=== PATIENT | female | born 1960 | race African-American/Black ===

== ENCOUNTER 2020-02-28 15:56 | Inpatient (IN) | payer MEDICARE, MEDICAID ==
[~2020-02-28] VITALS: Ht 175.3 cm; Wt 96.7 kg
--- NOTE | ~2020-02-28 | OP ---
PATIENT NAME: STEFANY RUBY I MEDICAL RECORD: [id number] :60 LOCATION:D.[id number] ADMISSION DATE:02/28/20 SURGEON: ANTIONE CROOKS MD DATE OF OPERATION: 03/02/2020 PREOPERATIVE DIAGNOSIS: Tense hematoma of the left groin. POSTOPERATIVE DIAGNOSIS: Tense hematoma of the left groin with ongoing arterial hemorrhage from a small arterial end that did not involve the common femoral artery, superficial femoral artery, or profunda femoris artery. It did not involve the patch. 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 PROCEDURE: 1. Evacuation of tense groin hematoma. 2. Hemorrhage control. SURGEON: Antione Crooks MD CYBER CRIME INVESTIGATOR: None. BLOOD LOSS: About 50 cc of ongoing blood loss. DRAINS: Times one 19-Tanzanian round Damian drain. OPERATIVE COURSE: The patient was conveyed to the operating room emergently on 03/02/2020. General anesthesia was induced by anesthesia staff. The abdomen, left groin and left thigh were sterilely prepped and draped. I entered the left groin through the incision. A large hematoma was identified. This was evacuated manually. There was approximately a liter of blood in the hematoma. I examined the common femoral artery and profunda femoris arteries and there were biphasic flows in both. I irrigated with normal saline and then hydrogen peroxide. There was acute hemorrhage taking place. This hemorrhage from what appeared to be a crossing artery was controlled with cautery and then a [id number] ligature. There was no further bleeding. A 19-Tanzanian round Daiman-type closed suction drainage system was then placed and brought out through a stab incision. It was sutured to skin with a nylon. The subdermis was approximated with interrupted 3-0 Vicryls. The skin was approximated with metallic clips and then a sterile dressing. The patient was then transferred back to her room and recovered there. TRANSINT:[id number] Voice Confirmation ID: [id number] DOCUMENT ID: [id number] OPERATIVE REPORT [id number] STEFANY RUBY I ANTIONE CROOKS MD CC: [id number] DICTATION DATE: 04/03/20 1333 SUSTAINABILITY SPECIALIST: 04/03/20 2247 ADM IN [place] [id number] [place] [address]
--- NOTE | ~2020-02-28 | HEMODYNAMI ---
PATIENT:STEFANY RUBY I MEDICAL RECORD: [id number] : 60 LOCATION:[facility] D.2309 ADMISSION DATE: 02/28/20 Generatedon:04/10/202013:31 Patient name: STEFANY RUBY Patient #: [id number] SSN: [id number] : 1960 Date of study: 04/10/2020 Page: Of Hemodynamic Procedure Report Patient Data Patient Demographics Procedure consent was obtained First Name: STEFANY Gender: Female Last Name: FLORI : 1960 Middle Initial: I Age: 60 year(s) Patient #: [id number] Race: Black SSN: [id number] Additional ID: [id number] Contact details [address]: [address] [place] [address] State: [place] City: [place] Zip code: [address] Past Medical History Allergies Allergen Reaction Date Comments Reported Other allergy 04/10/2020 see chart Admission Admission Data Admission Date: 02/28/2020 Admission Time: 15:56 Arrival Date: 04/10/2020 Arrival Time: 0:00 Admit Source: Other Insurance Payor: Medicare Room #: D.2309 [facility] #: [id number] Height (in.): 69 BSA: 2.12 (m2) Height (cm.): 175.26 BMI: 31.48 (kg/m2) Weight (lbs.): 213.14 Weight (kg.): 96.68 Lab Results Lab Result Date: 04/10/2020 Lab Result Time: 0:00 Biochemistry Name Units Result Min Max BUN mg/dl 22 --(----)-* 7 18 Creatinine mg/dl 1.1 --(--*-)-- 0.6 1.3 eGFR ml/min 64.40978 *-(----)-- 90 120 AM CBC Name Units Result Min Max Hematocrit % 33 *-(----)-- 42 54 Hemoglobin g/dl 10.5 *-(----)-- 13.5 17.5 Procedure Procedure Types Cath Procedure Diagnostic Procedure [facility] w/Coronaries Sedation Charges Moderate Sedation up to 15 minutes Procedure Description Procedure Date Procedure Date: 04/10/2020 Procedure Start Time: 13:10 Procedure End Time: 13:29 Procedure Staff Name Function Yeison Mckoy MD Performing Physician Margareth Quintana RT Monitor Phuong Dior RT Scrub Kurtis Venegas RN Nurse Alyssa Braun RN It Analyst Procedure Data Cath Procedure Fluoroscopy Diagnostic fluoroscopy Total fluoroscopy Time: 2.6 time: 2.6 min min Diagnostic fluoroscopy Total fluoroscopy dose: 941 dose: 941 mGy mGy Contrast Material Contrast Material Type Amount (ml) Isovue 370 69 Entry Location Entry Primary Successful Side Size Upsize Upsize Entry Closure Succes sful Closure Location (Fr) 1 (Fr) 2 (Fr) Remarks Device Remarks Femoral Right 5 Fr Exoseal artery Estimated blood loss: 5 ml Diagnostic catheters Device Type Used For End Catheter Placement MULTIPACK JL 4.0 5Fr Procedure catheter MULTIPACK 3DRC 5Fr Procedure catheter MULTIPACK Pigtail 5 Fr Procedure catheter Procedure Complications No complications Procedure Medications Medication Administration Route Dosage Oxygen NC 8 l/min Lidocaine 2% added to field 20 Heparin Flush Bag added to field 2 bags (1000units/500ml NS) 0.9% NaCl I.V. 100 ml/hr Versed I.V. 1 mg Fentanyl I.V. 50 mcg Versed I.V. 1 mg Fentanyl I.V. 50 mcg Hemodynamics Rest BSA: 2.12 (m2) HGB: 10.5 (g/dl) O2 Consumption: Estimated: 239.76 (ml/min) O2 Co nsumption indexed: Estimated:113.09 (ml/min/m) Heart Rate: 118 (bpm) Pressure Samples Time Site Value (mmHg) Purpose Heart Use Rate(bpm) 13:21 LV 146/22,29 Snapshot 110 Gradients Valve Time Site Site Mean SEP/DFP Peak To Heart Use 1 2 (mmHg) (sec/min) Peak Rate (mmHg) (bpm) Aortic 13:22 LV AO 120 Snapshots Pre Cath Intra NCS Post Cath Vital Signs Time Heart Resp SPO2 etCO2 NIBP (mmHg) Rhythm Pain Sedation Rate (ipm) (%) (mmHg) Status Level (bpm) 12:57:53 120 33 90 0 158/102(130) NSR 0 (11) 10(A) , No pain 13:02:25 117 35 90 0 152/99(122) NSR 0 (11) 10(A) , No pain 13:06:53 118 35 89 0 158/99(122) NSR 0 (11) 10(A) , No pain 13:11:24 119 38 88 0 160/101(124) NSR 0 (11) 10(A) , No pain 13:15:56 121 20 86 0 155/96(128) NSR 0 (11) 10(A) , No pain 13:21:53 119 36 87 0 153/91(112) NSR 0 (11) 10(A) , No pain 13:26:39 125 25 89 0 No Cuff NSR 0 (11) 10(A) , No pain Medications Time Medication Route Dose Verified Delivered Reason Notes Effectiveness by by 12:56:23 Oxygen NC 8 Yeison Shah for low 02 transported l/min [facility] Braun sats from ICU on RN this amount. 12:57:12 Lidocaine 2% added 20ml Yeison Latham for local to vial [facility] anesthetic field MD ORTEGA 12:57:23 Heparin Flush added 2 Yeison Yeison used for Bag to bags [facility] procedure (1000units/500ml field MD ORTEGA NS) 12:57:30 0.9% NaCl I.V. 100 Yeison Yeison Per ml/hr [facility] physician MD [place]TE[place] 13:04:25 Versed I.V. 1 mg Yeison Hull for [facility] John[facility] Venegas RN sedation 13:04:33 Fentanyl I.V. 50 Yeison Floodie for mcg [facility] Venegas RN sedation 13:11:00 Versed I.V. 1 mg Yeison [address] for [facility] John[facility] Venegas RN sedation 13:11:04 Fentanyl I.V. 50 Yeison Floodie for mcg Leelee Rubi RN sedation Procedure Log Time Note 12:25:02 Alyssa Braun RN sent for patient. Start room use. 12:40:04 Informed consent obtained and on chart 12:40:23 Diagnostic Cath Status : Urgent 12:40:53 Admit Source: Other 12:40:56 ACC Patient presents with Stable Angina CCS Anginal Class 2--Slight limitation of ordinary activity. 12:40:59 Procedure Status Urgent Heart Cath (IP). 12:41:04 Time tracking: Regular hours (M-F 7:00 - 5:00) 12:41:08 Plan of Care:Hemodynamics will remain stable., Cardiac rhythm will remain stable., Comfort level will be maintained., Respiratory function will remain adequate., Patient/ family verbilizes understanding of procedure., Procedure tolerated without complication., Recovers from procedure without complications.. 12:41:49 Patient received from ICU to CCL 1 Alert and oriented. Tansferred to table in Supine position. 12:41:56 Warm blankets applied, and kate hugger turned on for patient comfort. 12:41:56 Correct patient and procedure confirmed by team. 12:41:57 ECG and BP/O2 sat monitors applied to patient. 12:42:12 H&P Date Dictated: 04/10/2020 Within 30 days and on chart.. 12:42:13 Pre-procedure instructions explained to patient. 12:42:13 Pre-op teaching completed and patient verbalized understanding. 12:42:22 Family unavailable. 12:42:23 Patient NPO since Midnight. 12:42:36 Patient allergic to Other allergysee chart 12:42:47 Arrival Date: 04/10/2020 12:00:00 AM 12:42:53 Patient Height : 69 inches 12:42:59 Patient Weight : 213.14 lbs 12:43:05 Insurance Payor : Medicare 12:43:53 Lab Result : BUN 22 mg/dl 12:43:53 Lab Result : Hematocrit 33 % 12:43:53 Lab Result : eGFR AM 64.51383 ml/min 12:43:53 Lab Result : Creatinine 1.1 mg/dl 12:43:53 Lab Result : Hemoglobin 10.5 g/dl 12:48:06 Lab results completed and on chart. 12:48:09 Stress Test: no; N/A ? 12:48:13 Risk of Mortality: 0.2 12:48:16 Risk of blood transfusion: 1.3 12:48:18 Risk of ALVINA: 3.1 12:48:20 Alarms reviewed by R. N. 12:48:20 Sharps counted by scrub and verified by R.N. 12:48:23 Right groin area was prepped with chlora-prep and draped in sterile fashion 12:48:29 Patient pain scale 0/10 ?. 12:48:38 IV patent on arrival in left antecubital with 0.9% NaCl at KVO. 12:56:22 Vital chart was started 12:56:23 Oxygen 8 l/min NC was administered by Alyssa Braun RN; for low 02 sats; transported from ICU on this amount. Verbal order read back and verified. 12:57:12 Lidocaine 2% 20ml vial added to field was administered by Yeison Mckoy MD; for local anesthetic; Verbal order read back and verified. 12:57:23 Heparin Flush Bag (1000units/500ml NS) 2 bags added to field was administered by Yeison Mckoy MD; used for procedure; Verbal order read back and verified. 12:57:30 0.9% NaCl 100 ml/hr I.V. was administered by Yeison Mckoy MD; Per physician; Verbal order read back and verified. 13:03:01 Baseline sample Acquired. 13:03:03 Full Disclosure recording started 13:03:07 Rhythm: sinus tachycardia 13:03:22 Is the patient allergic to Iodine/contrast media? No. 13:03:24 Was the patient premedicated? No 13:03:25 Is patient on blood thinner?No 13:03:28 Patient diabetic? Yes. 13:03:30 If diabetic: On Metformin? No 13:03:31 Patient not . Patient is over age 55. 13:03:32 ----Pre-sedation anethsthesia assessment.---- 13:03:38 Previous problem with sedation/anesthesia? No ? 13:03:39 Snore? Yes 13:03:41 Sleep apnea? Unknown 13:03:43 Deviated septum? No 13:03:45 Opens mouth fully? Yes 13:03:47 Sticks out tongue? Yes 13:03:52 Airway obstruction? No ? 13:04:00 Dentures? No ? 13:04:17 --------ALL STOP TIME OUT------ 13:04:17 Final Timeout: patient, procedure, and site verified with staff and physician. All members of the team are in agreement. 13:04:23 Right groin site verified by team. 13:04:25 Versed 1 mg I.V. was administered by Kurtis Venegas RN; for sedation; Verbal order read back and verified. 13:04:27 Fire Safety Assessment: A--An alcohol-based skin anteseptic being used preoperatively., C--Open oxygen or nitrous oxide is being used., D--An ESU, laser, or fiber-optic light is being used. 13:04:33 Fentanyl 50 mcg I.V. was administered by Kurtis Venegas RN; for sedation; Verbal order read back and verified. 13:04:38 Physical assessment completed. ASA score P 4 - A patient with severe systemic disease that is a constant threat to life as per Yeison Mckoy MD. 13:04:54 2) 60-89 Mildly reduced kidney function, and other findings (as for stage 1) point to kidney disease. 13:04:59 Maximum allowable contrast dose (3.7 X eGFR X 0.75)180 ml. 13:05:03 Sedation plan: IV Moderate Sedation Medication:Versed, Fentanyl 13:10:01 Procedure started. 13:10:13 Local anesthetic to right femoral artery with Lidocaine 2% by Yeison Mckoy MD.INITIAL ACCESS ONLY 13:10:30 Use device set Femoral Dx 13:10:31 ACIST Syringe (26822) opened to sterile field. 13:10:31 Bag Decanter (2002S) opened to sterile field. 13:10:32 Medline Cath Pack ([id number]) opened to sterile field. 13:10:33 ACIST Hand Control (83196) opened to sterile field. 13:10:34 ACIST Manifold (73566) opened to sterile field. 13:10:34 DIAGNOSTIC Multipack 5Fr catheter set (UV7278) opened to sterile field. 13:10:39 SHEATH 5FR [place] (JRV679) opened to sterile field. 13:10:40 EMERALD Guide Wire (126-461) opened to sterile field. 13:11:00 Versed 1 mg I.V. was administered by Kurtis Venegas RN; for sedation; Verbal order read back and verified. 13:11:04 Fentanyl 50 mcg I.V. was administered by Kurtis Venegas RN; for sedation; Verbal order read back and verified. 13:11:50 A 5 Fr sheath was inserted into the Right Femoral artery 13:11:56 A MULTIPACK JL 4.0 5Fr catheter was advanced over the wire and used for Procedure. 13:13:20 LCA angiography performed. 13:13:25 Injector settings: Ml/sec: 3, Volume: 6, 13:15:20 UNABLE TO ENGAGE LCA FULLY CHANGING GUIDE CATHETER. 13:15:25 Catheter exchanged over wire. 13:16:22 GUIDE 6FR JL 5.0 catheter ([id number]) opened to sterile field. 13:17:57 LCA angiography performed. 13:18:00 Injector settings: Ml/sec: 3, Volume: 6, 13:18:10 Catheter exchanged over wire. 13:18:50 A MULTIPACK 3DRC 5Fr catheter was advanced over the wire and used for Procedure. 13:19:43 RCA angiography performed. 13:19:46 Injector settings: Ml/sec: 3, Volume: 6, 13:20:17 Catheter exchanged over wire. 13:21:03 A MULTIPACK Pigtail 5 Fr catheter was advanced over the wire and used for Procedure. 13:21:42 LV gram done using DUGGAN 13:21:44 Injector settings: Ml/sec: 5, Volume: 15, 13:21:58 LV hemodynamics recorded. 13:22:12 EF : 20 % 13:22:20 Catheter removed. 13:22:24 EXOSEAL 5Fr (EX500) opened to sterile field. 13:22:35 Sheath removed intact; hemostasis achieved with Exoseal to the Right Femoral artery. 13:23:05 Fluoroscopy time 02.60 minutes. 13:23:09 Fluoroscopy dose: 941 mGy 13:23:09 Flurop Dose total: 941 13:23:19 Dose Area Product 10318 mGy/cm. 13:23:27 Procedure ended.(Physican Out) 13:23:58 Contrast amount:Isovue 370 69ml. 13:24:02 Maximum allowable dose exceeded? No. 13:24:04 Sharps counted by scrub and verified by R.N. 13:24:13 Post-op/insertion site Right Femoral artery dressed using a 4 x 4 and Tegaderm. 13:24:18 Post right femoral artery:stable, soft, clean and dry 13:24:19 Post Procedure Pulses reassessed and unchanged 13:24:22 Post procedure: right dorsailis pedis pulse 2+ Normal; easily identifiable; not easily obliterated. 13:24:43 Post-procedure physical assessment completed. ASA score P 4 - A patient with severe systemic disease that is a constant threat to life as per Yeison Mckoy MD. 13:24:48 Post procedure rhythm: unchanged. 13:24:53 Estimated blood loss: 5 ml 13:24:55 Post procedure instruction explained to patient.Patient verbalizes understanding. 13:24:56 Patient needs reinforcement of post procedure teaching. 13:26:23 Procedure type changed to Cath procedure, Diagnostic procedure, [facility], [facility] w/Coronaries, Sedation Charges, Moderate Sedation up to 15 minutes 13:26:52 Procedure Complication : No complications 13:26:57 [facility] Findings: MVD- will discuss options w/ pt 13:26:59 Operative report dictated upon procedure completion. 13:27:00 See physician's report for complete and final results. 13:27:02 Report given to ICU. 13:27:06 Patient transfered to ICU with Bed. 13:29:34 Vital chart was stopped 13:29:37 Procedure ended. 13:29:37 Full Disclosure recording stopped 13:29:50 End room use (Document Last) 13:30:15 End room use (Document Last) 13:30:27 End room use (Document Last) Device Usage Item Name Manufacture Quantity Catalog Hospital Part Current Minimal L ot# / Number Charge Number Stock Stock Serial# Code ACIST Acist 1 01370 691077 542719 134172 20 Syringe Medical (74150) Systems Inc Bag Microtek 1 140392 28834 809283 5 Decanter Medical Inc. () Medline Medline 1 [id number] 935254 12871 409678 5 Cath Pack ([id number]) ACIST Hand Acist 1 73158 573633 353964 957729 5 Control Medical (65213) Systems Inc ACIST Acist 1 98401 079289 938395 378772 5 Manifold Medical (47332) Systems Inc DIAGNOSTIC Cardinal 1 CV1987 097261 78961 230848 30 Multipack Health 5Fr catheter set (VQ0014) SHEATH 5FR Terumo 1 REB580 961637 788763 977866 5 [place] (HLR259) EMERALD Cardinal 1 502-455 302284 362329 648813 5 Guide Wire Health (502455) MULTIPACK Cardinal 1 165601 5 JL 4.0 5Fr Health catheter GUIDE 6FR Medtronic 1 [id number] 131831 09748 489029 1 JL 5.0 catheter ([id number]) MULTIPACK Cardinal 1 086637 5 3DRC 5Fr Health catheter MULTIPACK Cardinal 1 014500 5 Pigtail 5 Health Fr catheter EXOSEAL 5Fr Cardinal 1 EX500 691243 599483 663951 10 (EX500) Health Signature Audit [place] Stage Time Signature Unsigned Intra-Procedure 04/10/2020 Margareth Quintana 1:30:15 PM RT(R) Intra-Procedure 04/10/2020 Kurtis Venegas RN 1:30:27 PM Intra-Procedure 04/10/[address] 1:31:43 PM Johnathon [facility] [address] [place] [address]
--- NOTE | ~2020-02-28 | OP ---
PATIENT NAME: STEFANY RUBY I MEDICAL RECORD: [id number] :60 LOCATION:[facility] ADMISSION DATE:02/28/20 SURGEON: ANTIONE CROOKS MD DATE OF OPERATION: 02/29/2020 PREOPERATIVE DIAGNOSES: 1. Severe atherosclerotic peripheral vascular disease involving the left lower extremity. 2. Critical limb ischemia with impending gangrene. POSTOPERATIVE DIAGNOSES: 1. Severe atherosclerotic peripheral vascular disease involving the left lower extremity. 2. Critical limb ischemia with impending gangrene. 3. Chronically occluded superficial femoral artery. 4. Heavily calcified and stenotic left common femoral artery. 5. Heavily calcified and stenotic profunda femoris artery. 6. Possible hypercoagulability as the patient clotted her arterial system off 3 times during the procedure. PROCEDURE: 1. Left common femoral artery endarterectomy with bovine pericardial patch angioplasty. 2. Profunda femoris endarterectomy. SURGEON: Antione Crooks MD CROP SPECIALIST: None. BLOOD LOSS: Please see the anesthesia sheet. DRAINS: Times one 19-Swazi round closed suction drainage system. SURGEON: Antione Crooks MD CROP SPECIALIST: None. OPERATIVE COURSE: The patient was conveyed the operating room electively on 02/29/2020. General anesthesia was induced by the anesthesia staff. I specifically discussed with the patient the risk of bleeding, infection, injury to her nerve, the probability of limb loss. My plan was to see if we can increase arterial inflow proximally and then start to consider some type of distal revascularization. I felt that a 2-step system in her case would hopefully lead to positive outcome whereas doing too much during one operation may not lead to limb salvage. The abdomen, left groin, and left thigh was sterilely prepped and draped. An axial incision was accomplished in the left groin. I dissected down to the superficial femoral artery which was encircled with vessel loops. I freed up the superficial femoral artery with sharp dissection. I carried my incision cephalad to the common femoral artery. Proximal to the common femoral artery vessel loops were placed. I then dissected out the profunda femoris artery sharply. Some crossing vessels were cauterized. Some other crossing veins were ligated doubly and divided between ligatures. OPERATIVE REPORT [id number] STEFANY RUBY I An incision was accomplished in the common femoral artery. There was arterial inflow. Unfortunately, the proximal common femoral artery and distal external iliac artery were very heavily calcified. An occlusive balloon was not available. Therefore, I clamped across the distal external iliac artery. This axial incision of the common femoral artery was then continued. I tried to thrombectomize the superficial femoral artery. I did this and this was really a futile effort. Although I was able to pass the 5-Swazi Sandy catheter about 60 cm and pullback that I could detect there was a calcium in the artery and this likely been chronically occluded for some time and we are going to be unable to recanalize the artery. I then went about performing the common femoral endarterectomy. The CTA images revealed a very narrowed common femoral artery. My hope was to increase inflow here proximally. Intravenous heparin was given. I went about performing the femoral endarterectomy utilizing the endarterectomy spatula. A portion of the proximal endarterectomy was an inversion endarterectomy. I then released control of the external iliac artery with the clamp. There was no inflow. I think this is due to heavy calcification. I advanced a 5-Swazi Sandy catheter and performed some passes up into the iliac arterial system with the Marino catheter. There was some arterial inflow. I then had to place a hemostat through the common femoral arteriotomy and pull out some of the heavy calcification from the external iliac artery. This increased inflow. I then advanced the 5-Swazi Sandy catheter again retrograde up into the external iliac artery and pullback. This released some additional heavy calcification as well as some thrombus and there was excellent arterial inflow. Unfortunately, I had to clamp across the external iliac artery again to regain control. The profunda femoris artery was heavily calcified as well. As the patient appeared to clot off very quickly despite a significant amount of intravenous heparin, I elected to perform a profunda femoris endarterectomy rather than a true profundoplasty. I incised down the profunda and was able to perform an endarterectomy with the endarterectomy spatula. There was a lot of calcium which was removed through the endarterectomy by the spatula as well as with fine pointed hemostat. There was some backflow via the profunda femoris artery and I endarterectomized to the first profunda branch. I then closed the profunda femoris artery with a running 6-0 Prolene suture. I then fashioned a bovine pericardial patch and placed this on top of the common femoral artery. I then sutured the bovine pericardial patch to the superficial femoral artery with a running 6-0 Prolene. I released control on the external iliac artery and there was no arterial inflow. I incised the patch. Though the patch I advanced it distally down the superficial femoral artery and pulled back. There was some clot which I then aspirated. I advanced a 4-Swazi Marino catheter down the profunda femoris artery and pulled back and there was a minimal amount of clot that came with the 4-Swazi Marino catheter. I advanced a 5-Swazi Sandy catheter retrograde up the common femoral artery and into the external iliac artery. I pulled back several times and there was the production of clot as well as calcium. There was good to very good inflow after OPERATIVE REPORT [id number] STEFANY RUBY I doing this. While holding manual control with my fingers on the external iliac artery, I closed the patchedotomy with running 6-0 Prolene suture. I then examined the superficial femoral artery and there was no flow by Doppler examination. This is not surprising considering the superficial femoral artery has been chronically occluded. There was biphasic flow within the common femoral artery. There was biphasic flow into the profunda femoris artery with good diastolic flow as well. Hemostasis was achieved with electrocautery. A 19-Swazi closed suction drainage system was brought out through a stab incision. The drain was placed on top of the bovine pericardial patch. Deep adipose tissue was closed with interrupted 3-0 Vicryls. Subcutaneous adipose tissue was closed with interrupted 3-0 Vicryls. The skin was approximated with a running intracuticular 3-0 Vicryl. The drain was sutured to skin with a 2-0 nylon. The patient was then conveyed back to her room. TRANSINT:[id number] Voice Confirmation ID: [id number] DOCUMENT ID: [id number] ANTIONE CROOKS MD CC: [id number] DICTATION DATE: 04/03/[address] DEPARTMENT: 04/04/20 0037 [facility] IN [place] [id number] [place] [id number]
[2020-02-28 16:28] VITALS: BP 125/67; BMI 32.2
--- NOTE | 2020-02-28 16:46 | NUR ---
RECEIVED PT FROM ADMISSIONS. PT IS AAO AND UP WITH ASSIST. CALL LIGHT W/I REACH. PT ORIENTED TO ROOM. QUICKSTART, HISTORY, AND ASSESSMENT COMPLETE. RR EVEN AND UNLABORED ON RA. VSS AND WNL. WILL CTM.
[2020-02-28 17:18] LABS: BASOPHILS 0.1 % (0-2); EOSINOPHILS 4.1 % (0-7); HEMOGLOBIN 15.3 g/dL (12-16); IMMATURE GRANULOCYTES 0.3 % (0-5); LYMPHOCYTES 39.6 % (15-50); MCH 30.5 pg (26.0-34.0); MCHC 33.3 g/dL (31.0-37.0); MCV 91.8 fL (80.0-100.0); MEAN PLATELET VOLUME 11.8 fL (7.4-10.4); MONOCYTES 6.1 % (2-11); NEUTROPHILS 49.8 % (40-80); PLATELET COUNT 253 10x3/uL (130-400); RBC 5.01 10x6/uL (4.00-5.40); RDW 14.1 % (11.5-14.5); WBC 7.4 10x3/uL (4.8-10.8)
[2020-02-28 17:26] LABS: INR 0.96 (0.85-1.17); PROTIME 12.7 SECONDS (11.6-15.0)
[2020-02-28 17:46] LABS: ANION GAP 8.5 mmol/L (8-16); CALCIUM 8.9 mg/dL (8.5-10.1); CARBON DIOXIDE 27.7 mmol/L (21.0-32.0); CREATININE - SERUM 1.1 mg/dL (0.6-1.3); POTASSIUM - SERUM 4.2 mmol/L (3.5-5.1)
[2020-02-28 17:53] LABS: ALBUMIN 3.4 g/dL (3.4-5.0); BILIRUBIN - TOTAL 0.46 mg/dL (0.2-1.3); PROTEIN - SERUM 7.5 g/dL (6.4-8.2)
[2020-02-28] MEDS ORDERED: BASAGLAR K100 UNIT/1 SQ (18:14)
[2020-02-28] MEDS ORDERED: NORVASC10 MG PO (18:14)
[2020-02-28] MEDS ORDERED: PLAVIX75 MG PO (18:15)
[2020-02-28] MEDS ORDERED: CELEXA20 MG PO (18:15)
[2020-02-28] MEDS ORDERED: DEXILANT60 MG PO (18:15)
[2020-02-28] MEDS ORDERED: COMBIVENT RESPIM4 GM INH (18:15)
[2020-02-28] MEDS ORDERED: FLUTICASONE PRO16 GM NASAL (18:16)
[2020-02-28] MEDS ORDERED: ESTRACE1 MG PO (18:16)
[2020-02-28] MEDS ORDERED: HYDROCHLOROTH12.5 M1 PO (18:16)
[2020-02-28] MEDS ORDERED: HYDROCODON-ACE1 EA10 PO (18:17)
[2020-02-28] MEDS ORDERED: COZAAR100 MG PO (18:17)
[2020-02-28] MEDS ORDERED: METOPROLOL TART50 MG PO (18:18)
[2020-02-28] MEDS ORDERED: ZOCOR40 MG PO (18:19)
[2020-02-28] MEDS ORDERED: NIACOR PO (18:19)
[2020-02-28 21:10] VITALS: BP 147/78
--- NOTE | 2020-02-28 23:45 | NUR ---
INITIAL ROUNDS COMPLETED AT 191 HRS. PT REQUESTING PAIN MEDS AND HER ANTIDEPRESSION MED. IV TO LFA WITH HEPARIN AT 800U/HR. IV PATENT. ASSESSMENT COMPLETED AT 1919 HRS. SR PER CM HR 74. ALERT AND ORIENTED TO PERSON, PLACE AND TIME. TERAN. LUNGS CTA. RBKA NOTED. L FOOT SWOLLEN, RED AND COOL TO TOUCH. UNABLE TO PALPATE L PEDAL PULSES. NO PULSES VIA DOPPLER . Rachana LOMAX APN PAGED AT 1949 HRS. RETURNS PAGE AT 1954 HRS. INFORMED OF PT'S REQUEST FOR PAIN MARIYA ND CELEXA. INFORMED OF AFRO RESULTS. NEW ORDERS RECEIVED AND NOTED. CELEXA AND NORCO GIVEN PER ORDERS. FSBS 85. NO COVERGE NEEDED. DR CROOKS PAGED AT 2054 HRS. RETURNS PAGE AT 2114 HRS. INFORMED OF CONSULT, AFRO RESULTS, NO PULSES TO L FOOT AND OVERALL STATUS. IMFORMED BY DR CROOKS PT MAY EAT THIS PM THEN NPO AFTER MIDNIGHT FOR POSSIBLE SURGERY. PT INFORMED NPO AFTER MIDNIGHT AND DR CROOKS TO EVAL IN AM. SANDWICH GIVEN TO PT. PM MED GIVEN. PT CURRENTLY TALKING ON THE PHONE. SR UP X1, CALL LIGHT WITHIN REACH AND BSC AT BEDSIDE.
[2020-02-29 00:13] VITALS: BP 136/67
--- NOTE | 2020-02-29 01:36 | NUR ---
PT AWAKE; DENIES ANY DISCOMFORT. CALL LIGHT WITHIN REACH.
[2020-02-29 02:13] LABS: BASOPHILS 0.2 % (0-2); EOSINOPHILS 4.2 % (0-7); HEMATOCRIT 45.1 % (36.0-48.0); HEMOGLOBIN 14.8 g/dL (12-16); IMMATURE GRANULOCYTES 0.1 % (0-5); LYMPHOCYTES 47.2 % (15-50); MCH 30.7 pg (26.0-34.0); MCHC 32.8 g/dL (31.0-37.0); MCV 93.6 fL (80.0-100.0); MEAN PLATELET VOLUME 11.5 fL (7.4-10.4); MONOCYTES 5.6 % (2-11); NEUTROPHILS 42.7 % (40-80); PLATELET COUNT 244 10x3/uL (130-400); RBC 4.82 10x6/uL (4.00-5.40); RDW 14.2 % (11.5-14.5); WBC 8.2 10x3/uL (4.8-10.8)
[2020-02-29 02:30] LABS: ANION GAP 8.6 mmol/L (8-16); BILIRUBIN - TOTAL 0.46 mg/dL (0.2-1.3); CALCIUM 8.5 mg/dL (8.5-10.1); CARBON DIOXIDE 28.1 mmol/L (21.0-32.0); CREATININE - SERUM 1.2 mg/dL (0.6-1.3); POTASSIUM - SERUM 3.7 mmol/L (3.5-5.1); PROTEIN - SERUM 6.9 g/dL (6.4-8.2)
--- NOTE | 2020-02-29 03:18 | NUR ---
PTT 44.2. HEPARING DRIP INCREASED TO 900U/HR PER PROTOCOL.
--- NOTE | 2020-02-29 04:43 | NUR ---
NORCO 10/325 PO GIVEN FOR C/O L LEG PAIN AT 0405 HRS. I&O COMPLETED. CALL LIGHT WITHIN REACH.
[2020-02-29 04:54] VITALS: BP 139/72
--- NOTE | 2020-02-29 05:37 | NUR ---
VSS THROUGHOUT NIGHT. SR PER CM. PT STATES NORCO CONTROLS HER L LEG PAIN. NPO UNTIL SEEN BY DR CROOKS THIS AM. NEEDS MET; WILL CONTINUE TO MONITOR.
--- NOTE | 2020-02-29 06:45 | NUR ---
HIBICLENS BATH DONE.
[2020-02-29 08:56] VITALS: BP 114/55
--- NOTE | 2020-02-29 10:03 | NUR ---
AM MEDS GIVEN WITH A SIP OF WATER. WHEN MEDICATIONS WERE SCANNED FORGOT TO SUBMIT SO I HAD TO CLICK ON EACH MEDICATION THAT WAS ALREADY GIVEN. PT RESTING COMFORTABLY IN BED, DENIES ANY NEEDS AT THIS TIME. CALL LIGHT IN REACH, NAD NOTED,W ILL CONTINUE TO MONITOR.
--- NOTE | 2020-02-29 11:34 | NUR ---
BLOOD SUGAR OF 179, NO COVERAGE GIVEN DUE TO PT BEING NPO. CONSENTS SIGNED BY PT AND PLACED ON CHART. PT DENIES ANY NEEDS AT THIS TIME. CALL LIGHT IN REACH,WILL CONTINUE PLAN OF CARE.
--- NOTE | 2020-02-29 11:45 | NUR ---
PT RECIEVED TO CV01. OR STAFF AT BEDSIDE AND MONITORING PT. VSS. AFEBRILE. DENIES PAIN. POPITEAL PULSE IS DOPPLERABLE. UNABLE TO DOPPLE OTHER PULSES IN L LOWER LEG.
[2020-02-29 12:59] VITALS: BMI 28.3
[2020-02-29 13:12] VITALS: BP 126/72
--- NOTE | 2020-02-29 16:01 | NUR ---
BLOOD SUGAR OF 138, NO COVERAGE NEEDED PER S/S. ALSO GAVE NORCO FOR PAIN LEVEL OF 8/10. PT DENIES ANY OTHER NEEDS AT THIS TIME. CALL LIGHT IN REACH.
[2020-02-29 18:31] VITALS: BP 137/74
--- NOTE | 2020-02-29 19:27 | NUR ---
TO OR VIA BED. SPOUSE AT BEDSIDE.
[2020-02-29 19:57] VITALS: Ht 175.3 cm; Wt 96.7 kg
[2020-02-29 23:45] VITALS: BP 144/72
--- NOTE | 2020-02-29 23:45 | NUR ---
PT RECIEVED TO CV01 POST SURG. SURGERY CREW AT BEDSIDE. VSS. DENIES PAIN. POPITEAL PULSE IS DOPPLERABLE. PULSES L LOWER EXTREM NOT DOPPLERABLE. DR CROOKS AT BEDSIDE. ORDERS RECIEVED TO MONITOR H&H AND PTT AND RESUME HEPARIN GTT.
[2020-03-01] VITALS (26 sets, daily range): BP systolic 92–155; BP diastolic 49–94
[2020-03-01 00:02] LABS: HEMATOCRIT 41.2 % (36.0-48.0); HEMOGLOBIN 13.2 g/dL (12-16)
--- NOTE | 2020-03-01 02:30 | NUR ---
SPOKE WITH DR CROOKS VIA PHONE. NO CHANGES IN PT CONDITION AT THIS TIME.
[2020-03-01 02:54] LABS: HEMATOCRIT 39.6 % (36.0-48.0); HEMOGLOBIN 12.7 g/dL (12-16)
--- NOTE | 2020-03-01 04:30 | NUR ---
PT IS AWAKE AND ALERT. OP FROM EDUARDO IS DECREASED. TUBE IS BEING STRIPPED FREQUENTLY.DRSG CHANGED L THIGH. PAUL INTACT. INCISION IS WELL APPROXIMATED, SLIGHT SWELLING NOTED. CONTINUING TO MONITOR CLOSELY. PAIN MED GIVEN PER REQUEST.
[2020-03-01 07:15] LABS: ALBUMIN 2.6 g/dL (3.4-5.0); BILIRUBIN - TOTAL 0.78 mg/dL (0.2-1.3); CALCIUM 8.1 mg/dL (8.5-10.1); CARBON DIOXIDE 21.7 mmol/L (21.0-32.0)
[2020-03-01 07:16] LABS: HEMATOCRIT 37.5 % (36.0-48.0); HEMOGLOBIN 12.1 g/dL (12-16); MCH 30.5 pg (26.0-34.0); MCHC 32.3 g/dL (31.0-37.0); MCV 94.5 fL (80.0-100.0); MEAN PLATELET VOLUME 12.3 fL (7.4-10.4); PLATELET COUNT 238 10x3/uL (130-400); RBC 3.97 10x6/uL (4.00-5.40); RDW 14.4 % (11.5-14.5); WBC 26.1 10x3/uL (4.8-10.8)
--- NOTE | 2020-03-01 07:30 | NUR ---
AWAKE EASILY SKIN WARM AND DRY, EXCEPT FOR LEFT LOWER LEG WHICH IS COLD TO TOUCH. UNABLE TO GET A DOPPLER PULSE IN LEFT LOWER LEG. DRESSING UPPER THIGHT AND LOWER ABD DRY AND INTACT. EDUARDO DRAIN INTACT WITH CLOTS IN TUBING AND RED DRAINAGE IN BULB. BULB COMPRESSED. PATIENT IS UNCOMFORTABLE, REPOSITIONED PILLOWS TO SUPPORT LEFT LEGS. LOCKHART CATH PATENT DRAINIG CLEAR MEGHAN URINE. 100 ML IN CONTAINER. IV LEFT HAND WITHOUT REDNESS OR SWELLING. INFUSING WITH HEPARIN AT 1100 UNITS HOUR. NS KVO. HEAD OF BED ELEVATED 20 DEGREES. CALL LIGHT WITHIN HANDS REACH.
[2020-03-01 07:40] LABS: LYMPHOCYTES 7 % (15-50); MONOCYTES 2 % (2-11); NEUTROPHILS 90 % (40-80); PLATELET ESTIMATE NORMAL
[2020-03-01 07:44] LABS: ANION GAP 15.7 mmol/L (8-16); CREATININE - SERUM 1.6 mg/dL (0.6-1.3); POTASSIUM - SERUM 4.4 mmol/L (3.5-5.1)
--- NOTE | 2020-03-01 08:30 | NUR ---
REFUSED BREAKFAST STATES SHE IS AFRAID TO UP TAMMI. DIET LEMON CHEESH-NA SODA SERVED. REPOSITIONED REPOSITIONED LEFT LEG FOR DISCOMFORT.
--- NOTE | 2020-03-01 09:42 | NUR ---
patient pulled up in bed and repositioned on right side. left upper leg dressing dry and intact. po meds taken. salten cracker and lemon [place] drinik provided. zofran given
--- NOTE | 2020-03-01 10:17 | NUR ---
DR. GONZALEZ HERE, NEW ORDERS RECEIVED. NO NEW ORDERS FOR WBC
[2020-03-01 11:52] LABS: BILIRUBIN NEGATIVE (NEGATIVE); GLUCOSE NEGATIVE (NEGATIVE); KETONE NEGATIVE (NEGATIVE); NITRITE NEGATIVE (NEGATIVE); UROBILINOGEN NORMAL (NORMAL)
[2020-03-01 11:54] LABS: BACTERIA FEW /hpf (NEGATIVE); EPITHELIAL CELLS 0-5 /hpf (0-5); WHITE CELLS - URINE 0-5 /hpf (NEGATIVE)
[2020-03-01 11:55] LABS: HYALINE CAST 0-5 /lpf (NONE SEEN)
--- NOTE | 2020-03-01 12:00 | NUR ---
HERE QUESTIONS ANSWERED. DR. CROOKS HERE NO PULSE WITH DOPPLER IN LOWER LEFT LEG. SWOSH BEHIND KNEE WITH DOPPLER. NTG OINT APPLIED TO TOES, WARM BLANKET AROUND LEFT LOWER LEG.
--- NOTE | 2020-03-01 14:00 | NUR ---
COMPLETED HIBCLENS BATH GIVEN LOCKHART CATH CARE DONE. DRESSING CHANGE LEFT UPPER THIGH, RED DRAINAGE NOTED ON DRESSING. EDUARDO DRAIN DRAINED 40 ML RED DRAINAGE. PAUL INTACT. PATIENT TOLERATED FAIR.
--- NOTE | 2020-03-01 15:18 | NUR ---
PATIENT RESTING WITH EYES CLOSED. RESP RATE DEEP AND REGULAR
--- NOTE | 2020-03-01 17:00 | NUR ---
NOT HUNGRY RIGHT NOW. DINNER TRAY LEFT IN ROOM. LEFT GROIN DRESSING DRY AND INTACT. EDUARDO DRAIN INTACT. BULB COMPRESSED. RED LIQUID IN BULB. IV PATENT LEFT FOREARM INFUSING WITH NS AT 50 ML HOUR. HEPARIN AT 11 ML HOUR. LOCKHART CATH PATENT.
--- NOTE | 2020-03-01 18:39 | NUR ---
REPOSITIONED ON RIGHT SIDE. NO DISTRESS. HEAD OF BED ELEVATED 30 DEGREES. DRESSING LEFT GROIN DRY AND INTACT. WARM TOWEL TO LEFT LOWER LEG.
--- NOTE | 2020-03-01 19:00 | NUR ---
SHIFT ASSESSMENT COMPLTED. PT CARE ASSUMED. MONITORS ON AND WORKING, PT AWAKE AND ALERT, CALL LIGHT WITHIN REACH, EDUARDO DRAIN TO LEFT UPPER THIGH WITH SMALL HEMATOMA AROUND SITE NOTED. SEE FLOW SHEET FOR FURTHER DETAILS. WILL CONTINUE TO OBSERVE.
--- NOTE | 2020-03-01 21:00 | NUR ---
PT TURNED AND REPOSITIONED FOR COMFORT, MONITORS ON AND WORKING, VITALS STABLE, CALL LIGHT WTHIN REACH, WILL CONTINUE TO OBSERVE.
--- NOTE | 2020-03-01 23:00 | NUR ---
PT TURNED AND REPOSITIONED FOR COMFORT, MONITORS ON AND WORKING, VSS, PAIN MEDS GIVEN PER PTS REQUEST AND MD ORDERS, CALL LIGHT WITHIN REACH, SEE FLOW SHEET FOR FURTHER DETAILS. WILL CONTINUE TO OBSERVE.
[2020-03-02] VITALS (22 sets, daily range): BP systolic 103–133; BP diastolic 32–66
--- NOTE | 2020-03-02 01:00 | NUR ---
PT TURNED AND RESPOSITIONED IN BED FOR COMFORT, MONITORS ON AND WORKING, VSS, PT AWAKE AND ALERT, CALL LIGHT WITHIN REACH, WILL CONTINUE TO OBSERVE.
--- NOTE | 2020-03-02 03:00 | NUR ---
NO CHANGES, SEE FLOW SHEET FOR FURTHER DETAILS, WILL CONTINUE TO OBSERVE.
--- NOTE | 2020-03-02 05:00 | NUR ---
LEFT THIGH INCISION DRESSING CHANGED, EDUARDO DRAIN COMPRESSED, PT TURNED AND REPOSITIONED FOR COMFORT, MONITORS ON AND WORKING, VSS, CALL LIGHT WITHIN REACH, WILL CONTINUE TO OBSERVE.
[2020-03-02 05:10] LABS: BASOPHILS 0.1 % (0-2); EOSINOPHILS 0.1 % (0-7); IMMATURE GRANULOCYTES 0.3 % (0-5); LYMPHOCYTES 14.9 % (15-50); MCH 29.9 pg (26.0-34.0); MCHC 31.7 g/dL (31.0-37.0); MCV 94.2 fL (80.0-100.0); MEAN PLATELET VOLUME 11.9 fL (7.4-10.4); NEUTROPHILS 72.6 % (40-80); PLATELET COUNT 216 10x3/uL (130-400); RDW 14.2 % (11.5-14.5)
[2020-03-02 05:23] LABS: HEMATOCRIT 26.2 % (36.0-48.0); HEMOGLOBIN 8.3 g/dL (12-16); RBC 2.78 10x6/uL (4.00-5.40)
--- NOTE | 2020-03-02 05:30 | NUR ---
REC'D LABS, H&H DROPPED, APTT WNL, SPOKE WITH DR RCOOKS CONCERNING THIS, RECD OPRDERS TO TRANSFUSE 2 UNITS OF PRBCS AND TO HOLD HEPARIN DRIP AT THIS TIME AND HE WILL BE IN SHORTLY TO SPEAK WITH PT. MONITORS ON AND WORKNG, VSS, CALL LIGHT WITHIN REACH, WILL CONTINUE TO OBSERVE.
[2020-03-02 05:36] LABS: ALBUMIN 2.4 g/dL (3.4-5.0); ANION GAP 11.3 mmol/L (8-16); BILIRUBIN - TOTAL 0.55 mg/dL (0.2-1.3); CALCIUM 7.9 mg/dL (8.5-10.1); CARBON DIOXIDE 26.1 mmol/L (21.0-32.0); POTASSIUM - SERUM 4.4 mmol/L (3.5-5.1); PROTEIN - SERUM 5.2 g/dL (6.4-8.2)
--- NOTE | 2020-03-02 07:11 | NUR ---
SHIFT REPORT RECEIVED. PT AA&OX4. ON ROOM AIR. REPORTS PAIN 8/10 TO LEFT GROIN INCISION SITE. DRESSING HAS SMALL AMOUNT OF BLOOD. RBKA. LOCKHART CATHETER IN PLACE. HAS 20G PIV TO LEFT FOREARM WITH NS AT 50ML/HR. SAFATY MEASURES IN PLACE. WILL CONTINUE TO MONITOR.
--- NOTE | 2020-03-02 10:02 | NUR ---
1ST UNIT OF PRBC'S INITIATED PER ORDER.
--- NOTE | 2020-03-02 10:28 | NUR ---
CALL RECEIVED FROM DAUGHTER. PASS CODE VERIFIED. BRIEF UPDATE GIVEN.
--- NOTE | 2020-03-02 10:38 | NUR ---
SBP 120S. SPACING OUT BLOOD PRESSURE MEDS TO KEEP BP FROM DROPPING DRASTICALLY.
--- NOTE | 2020-03-02 11:00 | NUR ---
DR. MARCOS IN UNIT. NOTIFIED THAT PT HAS HEMATOMA TO LEFT GROIN. ORDERED ULTRASOUND TO RULE OUT PSEUDOANURISM.
--- NOTE | 2020-03-02 11:16 | NUR ---
Nutrition Follow-up: POD 2 L CLIENT SERVICE ADMINISTRATOR endarterectomy. Pt reports good appetite. Observed ~75% of breakfast eaten this AM. Denies N/V/C/D. Diet: Diabetic Wt: 243# (03/01); 192# (02/28) Last BM: ~2 days ago per pt Labs noted: Glu 184, Ca 7.9, Alb 2.4 Meds noted: NS @ 50, Protonix, Humalog, Zofran, electrolyte protocol -Encourage PO intake and honor food preferences within diet restrictions. -Monitor wt. -RD following.
--- NOTE | 2020-03-02 12:20 | NUR ---
2ND UNIT OF PRBC'S INITIATED AT THIS TIME.
--- NOTE | 2020-03-02 15:20 | NUR ---
ULTRASOUND RESULTS CALLED TO DR. MARCOS. ORDERS RECEIVED.
[2020-03-02 16:11] LABS: HEMATOCRIT 30.7 % (36.0-48.0)
[2020-03-02 16:17] LABS: HEMOGLOBIN 10.1 g/dL (12-16)
--- NOTE | 2020-03-02 17:35 | NUR ---
CONSENT SIGNED FOR EVACUATION OF HEMATOMA TO LEFT GROIN WITH POSSIBLE THROMBECTOMY. SPOUSE AT BEDSIDE.
--- NOTE | 2020-03-02 18:15 | NUR ---
PT TRANSFERRED TO OR AT THIS TIME.
--- NOTE | 2020-03-02 19:55 | NUR ---
PT RECEIVED FROM OR, NOT ORIENTED. ON 7LPM OC VIA MASK, SPO2 100%, DECREASED TO 5LPM. DRESSING TO LEFT UPPER LEG C/D/I, EDUARDO DRAIN COMPRESSED. AREA WITH OUT S/S OF BLEEDING. REPORT RECEIVED FROM SURGICAL STAFF. PT ON MONITOR. WILL CONTINUE TO OBSERVE.
--- NOTE | 2020-03-02 21:50 | NUR ---
AT BEDSIDE. PT WANTING REPOSITIONED, ASSISTANCE GIVEN WITH ELEVATING LEG. PT AGGITATED WITH ABOUT NOT HELPING FASTER AND BEGAN FUSSING AT HIM. PT MADE COMFORTABLE AND LEFT FOR NIGHT. PT DENIES PAIN AT THIS TIME. WILL CONTINUE TO OBSERVE.
[2020-03-03] VITALS (27 sets, daily range): BP systolic 90–162; BP diastolic 40–88
--- NOTE | 2020-03-03 01:57 | NUR ---
PT CONFUSED, ORIENTED TO PERSON AND PLACE. DENIES PAIN. PULLING OF SPO2 SENSOR AND B/P CUFF. REPLACED. PT RESTLESS AT TIMES.
[2020-03-03 04:53] LABS: BASOPHILS 0.1 % (0-2); EOSINOPHILS 0.5 % (0-7); HEMATOCRIT 27.3 % (36.0-48.0); IMMATURE GRANULOCYTES 0.3 % (0-5); LYMPHOCYTES 15.3 % (15-50); MCH 29.5 pg (26.0-34.0); MEAN PLATELET VOLUME 11.7 fL (7.4-10.4); MONOCYTES 8.3 % (2-11); NEUTROPHILS 75.5 % (40-80); PLATELET COUNT 192 10x3/uL (130-400); RBC 3.05 10x6/uL (4.00-5.40); RDW 15.5 % (11.5-14.5); WBC 16.6 10x3/uL (4.8-10.8)
[2020-03-03 05:14] LABS: ALBUMIN 2.4 g/dL (3.4-5.0); BILIRUBIN - TOTAL 0.71 mg/dL (0.2-1.3); CALCIUM 7.8 mg/dL (8.5-10.1); CARBON DIOXIDE 26.2 mmol/L (21.0-32.0); MAGNESIUM - SERUM 1.9 mg/dL (1.8-2.4); PROTEIN - SERUM 5.9 g/dL (6.4-8.2)
[2020-03-03 05:28] LABS: ANION GAP 9.3 mmol/L (8-16); CREATININE - SERUM 1.4 mg/dL (0.6-1.3); POTASSIUM - SERUM 3.5 mmol/L (3.5-5.1)
[2020-03-03 05:36] LABS: MCV 89.5 fL (80.0-100.0)
--- NOTE | 2020-03-03 09:30 | NUR ---
0700 PT RECIEVED ALERT, CONFUSED TO TIME/SITUATION, EASILY REORIENTED, VSS DENIES ALL NEEDS, L GROIN SITE SOFT TO TOUCH, NO SIGNS OF BLEEDING, EDUARDO DRAIN COMPRESSED, SEE SHIFT ASSESSMENT FOR DETAILS 0900 TOOK AM MEDS WITHOUT DIFFICULTY
--- NOTE | 2020-03-03 11:09 | NUR ---
PT IV INFILTATED, ATTEMPTED TO RESTARTX1, VASCULAR ACCESS CALLED TO RESTART, OK TO DC IV FLUIDS PER DR MARCOS
--- NOTE | 2020-03-03 15:22 | NUR ---
OT NOTE: NURSING REPORTS TO HOLD ONE MORE DAY BEFORE MOVING PT AROUND DUE TO RECENT SURGERY YESTERDAY AND DR HAD NOT BEEN IN YET TO SEE PT. WILL ATTEMPT TOMORROW. THANK YOU , RUI WILKINS, OTR/L
--- NOTE | 2020-03-03 17:40 | MORECARE ---
CASE MANAGEMENT DISCHARGE SUMMARY PATIENT: STEFANY RUBY I UNIT: [id number] ADM DATE: 02/28/20 AGE: 60 : 60 SEX: F ROOM/BED: [facility] AUTHOR: JEAN CARLOS SMITH PHYSICIAN: REFERRING PHYSICIAN: CECILLE MCCALL MD DATE OF SERVICE: 03/03/20 Discharge Plan Patient Name: STEFANY RUBY [facility] [facility] 1960 Planned Disposition: Anticipated Discharge Date: Discharge Date: Expected LOS: Initial Reviewer: [email or web address] Initial Review Date: 02/28/2020 Generated: 03/03/20 6:39 pm Patient Name: STEFANY RUBY Page [phone] at 1740 All edits/amendments must be made on the electronic document DICTATION DATE: 03/03/201739 CASING TIER: ELLA 03/03/201739 RPT#: [id number] DC DATE: STATUS: ADM IN [facility] [address] [place] [address] END OF REPORT
--- NOTE | 2020-03-03 17:53 | MORECARE ---
CASE MANAGEMENT DISCHARGE SUMMARY PATIENT: STEFANY RUBY I UNIT: [id number] ADM DATE: 02/28/20 AGE: 60 : 60 SEX: F ROOM/BED: [facility] AUTHOR: LUISDOC PHYSICIAN: REFERRING PHYSICIAN: CECILLE MCCALL MD DATE OF SERVICE: 03/03/20 Discharge Plan Patient Name: STEFANY RUBY Facility: [facility]:[place] : 1960 Planned Disposition: Anticipated Discharge Date: Discharge Date: Expected LOS: Initial Reviewer: [email or web address] Initial Review Date: 02/28/2020 Generated: 03/03/20 6:53 pm Comments DCP- Discharge Planning Updated by [email or web address]: Rosey Huerta on 03/03/20 4:[address] Patient Name: STEFANY RUBY Admission Status: Elective Accout number: [id number] Admission Date: 02-28-2020 : 1960 Admission Diagnosis:NONTRAUMATIC ISCHEMIC INFARCTION OF MUSCLE, UNSP LOWER Attending: CECILLE MCCALL Current LOS: 4 Anticipated DC Date: Planned Disposition: Primary Insurance: [employer] ADV Discharge Planning Comments: CM met with patient to complete initial dc planning assessment. CM educated patient on the CM role and verbal consent given by patient to complete assessment. Patient lives at home with family. Patient is independent. At discharge patient plans to return home and feels this is a safe discharge. CM discussed availability of home health, rehab services, and medical equipment. Patient states that she has all the DME that she needs. Patient will have family to transport home. Patient denied known discharge needs at this time. CM will continue to follow and will assist as needed with dc plans/needs. Lead Press Operator: Rosey Huerta DCPIA - Discharge Planning Initial Assessment Updated by [email or web address]: Rosey Huerta on 03/03/20 5:47 pm * Is the patient Alert and Oriented? Yes * How many steps to enter\exit or inside your home? 18 * PCP CAL * Pharmacy [facility] - [address] * Preadmission Environment Home with Family * ADLs Independent * Other Equipment WALKER, BSC, W/C, SC * List name and contact numbers for known caregivers / representatives who currently or will assist patient after discharge: DAFNE RUBY - [phone] * Verbal permission to speak to the caregivers and representatives has been obtained from the patient. Yes * Community resources currently utilized None * Additional services required to return to the preadmission environment? No * Can the patient safely return to the preadmission environment? Yes * Has this patient been hospitalized within the prior 30 days at any hospital? No Last DP export: 03/03/20 4:40 p Patient Name: STEFANY RUBY Page [phone] at 1753 All edits/amendments must be made on the electronic document DICTATION DATE: 03/03/201752 ORDER CHECKER: ELLA 03/03/201752 RPT#: [id number] DC DATE: STATUS: ADM IN [facility] [address] [place] [address] END OF REPORT
--- NOTE | 2020-03-03 19:00 | NUR ---
REPORT RECEIVED. RECEIVED PATIENT IN BED. AWAKE ALERT AND ORIENTED X 4. ASSESSMENT COMPLETED PER FLOW SHEET WITH NO ACUTE DISTRESS OBSERVED. MONITORS CONNECTED TO PATIENT WITH ALARMS SET. VSS. CALL LIGHT IN REACH AND ABLE TO UTILIZE TO MAKE NEEDS KNOWN. INCISION SITE TO LEFT UPPER THIGH WITH DRSG CDI/ SUROUNDING AREAS SOFT WITH NO HEMATOMA FORMATION OBSERVED. WILL CONTINUE CURRENT POC.
--- NOTE | 2020-03-03 19:30 | NUR ---
LEFT PEDAL PULSES ABSENT. LEFT POPLITEAL PULSE PRESENT/ DOPPLERED.
--- NOTE | 2020-03-03 21:00 | NUR ---
AWAKE AND ALERT. ASSISTED WITH REPOSITIONING FOR COMFORT. IDANIA WELL. VSS.
--- NOTE | 2020-03-03 21:45 | NUR ---
AT BEDSIDE. UPDATED ON PATIENT WITH QUESTIONS ANSWERED.
--- NOTE | 2020-03-03 23:00 | NUR ---
AWAKE AND ALERT. ORIENTED X 4. REASSESSMENT COMPLETED PER FLOW SHEET WITH NO ACUTE DISTRESS OBSERVED. VSS . CALL LIGHT IN REACH
[2020-03-04] VITALS (21 sets, daily range): BP systolic 114–167; BP diastolic 52–84
--- NOTE | 2020-03-04 01:00 | NUR ---
AWAKE AND ALERT. VSS. ASSISTED WITH REPOSITIONING. IDANIA WELL. CALL LIGHT IN REACH
--- NOTE | 2020-03-04 03:00 | NUR ---
AWAKE AND ALERT. REASSESSMENT COMPLETED PER FLOW SHEET WITH NO ACUTE DISTRESS OBSERVED. VSS. ASSISTED WITH REPOSITIONING. IDANIA WELL. CALL LIGHT IN REACH
--- NOTE | 2020-03-04 05:00 | NUR ---
AWAKE AND ALERT. VSS. DRSG TO L UPPER THIGH CHANGED. INCISION WELL APPROXIMATED. ASSISTED WITH TURNING AND REPOSITIONING. IDANIA WELL. CALL LIGHT IN REACH
[2020-03-04 05:14] LABS: BASOPHILS 0.2 % (0-2); EOSINOPHILS 1.9 % (0-7); HEMATOCRIT 28.9 % (36.0-48.0); HEMOGLOBIN 9.7 g/dL (12-16); IMMATURE GRANULOCYTES 0.2 % (0-5); MCH 30.3 pg (26.0-34.0); MCHC 33.6 g/dL (31.0-37.0); MCV 90.3 fL (80.0-100.0); MEAN PLATELET VOLUME 11.2 fL (7.4-10.4); MONOCYTES 7.5 % (2-11); NEUTROPHILS 73.2 % (40-80); RDW 14.8 % (11.5-14.5); WBC 17.9 10x3/uL (4.8-10.8)
[2020-03-04 05:41] LABS: PLATELET COUNT 251 10x3/uL (130-400)
[2020-03-04 05:50] LABS: ALBUMIN 2.4 g/dL (3.4-5.0); ANION GAP 11.3 mmol/L (8-16); BILIRUBIN - TOTAL 0.92 mg/dL (0.2-1.3); CALCIUM 8.7 mg/dL (8.5-10.1); CARBON DIOXIDE 26.4 mmol/L (21.0-32.0); POTASSIUM - SERUM 3.7 mmol/L (3.5-5.1); PROTEIN - SERUM 6.5 g/dL (6.4-8.2)
--- NOTE | 2020-03-04 10:21 | NUR ---
Nutrition Follow-up: Pt reports that she ate the majority of her breakfast this AM. Denies N/V. Unsure of last BM; reports taking a stool softener at home. Diet: Diabetic Wt: 243# (03/01); 192# (02/28) Labs noted: Glu 182, Alb 2.4 Meds noted: Protonix, Humalog, electrolyte protocol -Encourage PO intake and honor food preferences within diet restrictions. -Monitor wt. -RD following.
--- NOTE | 2020-03-04 19:00 | NUR ---
DR CROOKS SEEN PT AND HAS LEFT, NO NEW ORDERS RECEIVED.
--- NOTE | 2020-03-04 20:16 | NUR ---
PT RECEIVED IN BED WITH EYES OPEN WATCHING TV. COMPLAINS OF PAIN WITH PRN PAIN MEDICATION GIVEN PER NOV. PT REPOSITIONED FOR COMFORT. FRESH WATER PROVIDED. CHANTELLE PATENT. CALL LIGHT IN REACH. WILL CONTINUE TO OBSERVE.
--- NOTE | 2020-03-04 21:54 | NUR ---
DAUGHTER VISITED AND HAS LEFT UNIT.
--- NOTE | 2020-03-04 23:30 | NUR ---
PT RESTING WITH EYES CLOSED AND CHEST RISING. WILL CONTINUE TO OBSERVE.
[2020-03-05] VITALS (21 sets, daily range): BP systolic 121–170; BP diastolic 63–103
--- NOTE | 2020-03-05 01:10 | NUR ---
PT REPOSITIONED FOR COMFORT. NO OTHER NEEDS MADE KNOWN. CALL LIGHT IN REACH. WILL CONTINUE TO OBSERVE.
--- NOTE | 2020-03-05 03:43 | NUR ---
REPOSITIONING PROVIDED. FRESH WATER GIVEN. PT MOVING ALOT WHILE SLEEPING CAUSING B/P CUFF TO SLIDE DOWN ARM AND GIVING HIGH READING AND CAUSING SPO2 SENSOR TO READ LOW AT TIMES. CALL LIGHT IN REACH. WILL CONTINUE TO OBSERVE.
[2020-03-05 05:24] LABS: ALBUMIN 2.4 g/dL (3.4-5.0); ANION GAP 10.3 mmol/L (8-16); BILIRUBIN - TOTAL 1.07 mg/dL (0.2-1.3); CALCIUM 8.6 mg/dL (8.5-10.1); CARBON DIOXIDE 28.9 mmol/L (21.0-32.0); CREATININE - SERUM 1.1 mg/dL (0.6-1.3); POTASSIUM - SERUM 3.2 mmol/L (3.5-5.1); PROTEIN - SERUM 6.7 g/dL (6.4-8.2)
[2020-03-05 05:25] LABS: BASOPHILS 0.2 % (0-2); EOSINOPHILS 2.9 % (0-7); HEMATOCRIT 30.1 % (36.0-48.0); IMMATURE GRANULOCYTES 0.3 % (0-5); LYMPHOCYTES 17.8 % (15-50); MCH 29.9 pg (26.0-34.0); MCHC 33.2 g/dL (31.0-37.0); MCV 90.1 fL (80.0-100.0); MONOCYTES 9.1 % (2-11); NEUTROPHILS 69.7 % (40-80); RBC 3.34 10x6/uL (4.00-5.40); RDW 14.5 % (11.5-14.5)
[2020-03-05 05:34] LABS: PLATELET COUNT 327 10x3/uL (130-400)
--- NOTE | 2020-03-05 07:35 | NUR ---
SHIFT REPORT RECEIVED. ON ROOM AIR. ALERT AND ORIENTED. UNABLE TO GET COMFORTABLE. MOVING AROUND IN BED. HR 115 SINUS TACHYCARDIA. NO FEVER NOTED. LEFT UPPER THIGH DRESSING COMING OFF. CHANGED DRESSING AT THIS TIME. NO SIGNS OF INFECTION NOTED. MEAL TRAY DELIVERED AND SET UP. ICE PACK PROVIDED PER PT REQUEST. SAFETY MEASURES IN PLACE. WILL CONTINUE TO MONITOR.
--- NOTE | 2020-03-05 09:00 | NUR ---
AM MEDS GIVEN. ATIVAN GIVEN FOR ANXIETY PER ORDERS. PULLED UP AND REPOSITIONED FOR [facility] InstituteFORAT. PARTIAL LINEN CHANGE PROVIDED. NO FURTHER NEEDS AT THIS TIME. WILL CONTINUE TO MONITOR.
--- NOTE | 2020-03-05 09:46 | NUR ---
CALL RECEIVED FROM DAUGHTER. PASSCODE VERIFIED. BRIEF UPDATE GIVEN. WILL BE BY TO SEE PT AT THE 12-2 VISITATION TIME.
--- NOTE | 2020-03-05 12:35 | NUR ---
DR. CAMPBELL NOTIFIED OF CONSULT. WILL BE BY TO SEE PT AFTER CLINIC.
--- NOTE | 2020-03-05 13:59 | NUR ---
RESTING IN BED. REPOSITIONED FOR COMFORT. DENIES FURTHER NEEDS. WILL CONTINUE TO MONITOR.
--- NOTE | 2020-03-05 15:30 | NUR ---
CALL RECEIVED FROM DAUGHTER. PASSCODE VERIFIED. PT RESTING AT THIS TIME. WILL CONTINUE TO MONITOR.
--- NOTE | 2020-03-05 16:00 | NUR ---
POTASSIUM 3.6. NO ACTION REQUIRED PER PROTOCOL.
--- NOTE | 2020-03-05 19:00 | NUR ---
REPORT RECEIVED. RECEIVED PATIENT IN BED. AWAKE ALERT AND ORIENTED X 4. ASSESSMENT COMPLETED PER FLOW SHEET WITH NO ACUTE DISTRESS OBSERVED. MONITORS CONNECTED TO PATIENT WITH ALARMS SET. VSS. CALL LIGHT IN REACH AND ABLE TO UTILIZE TO MAKE NEEDS KNOWN. ASSISTED WITH TURNING AND REPOSITIONING FOR COMFORT. IDANIA WELL.
--- NOTE | 2020-03-05 20:20 | NUR ---
DR. CAMPBELL INTO EXAMINE PATIENT. PRESENT AT BEDSIDE.
--- NOTE | 2020-03-05 21:00 | NUR ---
AWAKE AND ALERT. AT BEDSIDE. ASSISTED WITH REPOSITIONING FOR COMFORT. CALL LIGHT IN REACH
[2020-03-06] VITALS (12 sets, daily range): BP systolic 110–157; BP diastolic 48–95
--- NOTE | 2020-03-06 01:00 | NUR ---
AWAKE AND ALERT. ASSISTED IN TURNING AND REPOSITIONING FOR COMFORT. VSS. CALL LIGHT IN REACH
--- NOTE | 2020-03-06 03:00 | NUR ---
AWAKE AND ALERT. REASSESSMENT COMPLETED PER FLOW SHEET WITH NO ACUTE DISTRESS OBSERVED. VSS. CALL LIGHT IN REACH
--- NOTE | 2020-03-06 05:00 | NUR ---
AWAKE AND ALERT. ASSISTED WITH TURNING AND REPOSITIONING. VSS. CALL LIGHT IN REACH. WOULD LIKE TO WAIT FOR DAUGHTER TO ASSIST WITH DAILY BATH.
--- NOTE | 2020-03-06 07:00 | NUR ---
BEDSIDE REPORT RECEIVED. SHIFT ASSESSMENT COMPLETED PER FLOWSHEET, SEE FLOWSHEET FOR INFORMATION. PT C/O OF BLE HURTING, EXPLAINED THAT IT WAS NOT YET TIME FOR PAIN MEDICATION BUT I WOULD GIVE IT SOON I COULD. PT VERBALIZED DUNDERSTANDING. REPOSITIONED PT PER COMFORT, BREAKFAST TRAY GIVEN. NO ACUTE NEEDS OR DISTRESS NOTED AT THIS TIME. PT IS TACHY-SINUS TACH. OTHER VSS. WILL CONT TO MONITOR.
--- NOTE | 2020-03-06 09:00 | NUR ---
PT RESTING IN BED WATCHING TV. REPOSITONED PER COMFORT. NO ACUTE NEEDS OR DISTRESS NOTED AT THIS TIME. WILL CONT TO MONITOR.
--- NOTE | 2020-03-06 10:16 | NUR ---
Nutrition Follow-up: Pt reports good appetite and that she ate well this AM. Denies N/V. -BM. Noted possible BKA vs AKA per Dr. Rome. Diet: Diabetic Wt: 218# (03/06); 243# (03/01); noted I/Os (-2180 on 03/05, -3815 on 03/04, -2757 on 03/03) Labs noted: Glu 204 Meds noted: Protonix, Humalog, electrolyte protocol -Encourage PO intake and honor food preferences within diet restrictions. -Monitor wt. -RD following.
--- NOTE | 2020-03-06 10:33 | NUR ---
CHG BEDBATH GIVEN. COMPLETE LINEN CHANGE. WILL CONT TO MONITOR.
--- NOTE | 2020-03-06 11:00 | NUR ---
REASSESSMENT COMPLETED PER FLOWSHEET, SEE FLOWSHEET FOR INFORMATION. AT BEDSIDE, NEW ORDERS RECEIVED. EKG OBTAINED PER ORDERS. CHANGED MIDLINE DRESSING. PT DENIES ANY ACUTE NEEDS OR DISTRESS AT THIS TIME. WILL CONT TO MONITOR.
--- NOTE | 2020-03-06 15:54 | NUR ---
PT IS VERY CONFUSED AND AGITATED. NURSE ASKED PT IF SHE HAD FELL OR INJURED HER RIGHT LEG WHILE HERE AND PT BECOMES AGITATED STATING "YOU'RE JUST LYING TO ME, ALL YOU DO IS LIE TO ME. I'M HERE TO GET BETTER AND ALL YOU'RE DOING IS LYING TO ME." SPOKE WITH AND STATES SHE SEEMS CONFUSED. WILL CONT TO MONITOR.
--- NOTE | 2020-03-06 17:00 | NUR ---
PT MORE ALERT, STILL CONFUSED. WILL CONT TO MONITOR.
--- NOTE | 2020-03-06 19:00 | NUR ---
REPORT RECEIVED. RECEIVED PATIENT IN BED. AWAKE AND ALERT. ORIENTED TO PERSON PLACE AND DATE. REMEMBERS THIS NURSE FROM PREVIOUS SHIFT. HAVING SOME CONFUSION TO TIME OF DAY AND FORGETFULNESS. ASSESSMENT COMPLETED PER FLOW SHEET WITH NO ACUTE DISTRESS OBSERVED. VSS. CALL LIGHT IN REACH AND ABLE TO UTILIZE TO MAKE NEEDS KNOWN. ASSISTED WITH TURNING AND REPOSITIONING. IDANIA WELL.
--- NOTE | 2020-03-06 21:00 | NUR ---
AWAKE AND ALERT. VSS. CALL LIGHT IN REACH AND ABLE TO UTILIZE TO MAKE NEEDS KNOWN. TURNED AND REPOSTIONED FOR COMFORT. IDANIA WELL
[2020-03-07] VITALS (19 sets, daily range): BP systolic 116–164; BP diastolic 32–82
--- NOTE | 2020-03-07 01:00 | NUR ---
RESTING WITH EYES CLOSED. VSS. CALL LIGHT IN REACH
--- NOTE | 2020-03-07 03:00 | NUR ---
REASSESSMENT COMPLETED PER FLOW SHEET WITH NO ACUTE DISTRESS OBSERVED. VSS. ASSISTED WITH TURNING AND REPOSITIONING. IDANIA WELL. CALL LIGHT IN REACH
--- NOTE | 2020-03-07 05:00 | NUR ---
RESTING WITH EYES CLOSED. VSS. CALL LIGHT IN REACH
[2020-03-07 05:55] LABS: BASOPHILS 0.1 % (0-2); EOSINOPHILS 1.2 % (0-7); HEMATOCRIT 29.4 % (36.0-48.0); HEMOGLOBIN 9.6 g/dL (12-16); IMMATURE GRANULOCYTES 0.4 % (0-5); LYMPHOCYTES 13.7 % (15-50); MCH 29.6 pg (26.0-34.0); MCHC 32.7 g/dL (31.0-37.0); MCV 90.7 fL (80.0-100.0); MEAN PLATELET VOLUME 10.3 fL (7.4-10.4); MONOCYTES 11.4 % (2-11); NEUTROPHILS 73.2 % (40-80); RBC 3.24 10x6/uL (4.00-5.40); RDW 14.7 % (11.5-14.5)
[2020-03-07 05:59] LABS: PLATELET COUNT 414 10x3/uL (130-400)
[2020-03-07 06:22] LABS: ANION GAP 10.1 mmol/L (8-16); CALCIUM 8.8 mg/dL (8.5-10.1); CARBON DIOXIDE 27.7 mmol/L (21.0-32.0); POTASSIUM - SERUM 3.8 mmol/L (3.5-5.1)
--- NOTE | 2020-03-07 09:51 | NUR ---
0930: CHG BATH DONE AND LINEN CHANGED. INCISION FROM R GROIN TO MID THIGH REDRESSED. PAUL INTACT AND INCISION APPROXIMATED. SITE PAINTED WITH BETADINE SOLUTION AND DRY DRESSING APPLIED.
--- NOTE | 2020-03-07 19:00 | NUR ---
REPORT RECEIVED. RECEIVED PATIENT IN BED. RESTING WITH EYES CLOSED, EASILY ROUSED AND ALERT. ORIENTED X 4. ASSESSMENT COMPLETED PER FLOW SHEET WITH NO ACUTE DISTRESS OBSERVED. MONITORS CONNECTED TO PATIENT WITH ALARMS SET. VSS. ASSISTED WITH TURNING AND REPOSITIONING FOR COMFORT. IDANIA WELL. CALL LIGHT IN REACH AND ABLE TO UTILIZE TO MAKE NEEDS KNOWN
--- NOTE | 2020-03-07 21:00 | NUR ---
AWAKE AND ALERT. VSS. ASSISTED WITH TURNING AND REPOSTIONING. CALL LIGHT IN REACH
--- NOTE | 2020-03-07 23:00 | NUR ---
REASSESSMENT COMPLETED PER FLOW SHEET WITH NO ACUTE DISTRESS OBSERVED. VSS. CALL LIGHT IN REACH
[2020-03-08] VITALS (21 sets, daily range): BP systolic 103–150; BP diastolic 45–84
--- NOTE | 2020-03-08 01:00 | NUR ---
RESTING WITH EYES CLOSED. RESP EVEN AND UNLABORED. CALL LIGHT IN REACH
--- NOTE | 2020-03-08 03:00 | NUR ---
AWAKE AND ALERT. VSS. REASSESSMENT COMPLETED PER FLOW SHEET WITH NO ACUTE DISTRESS OBSERVED. ASSISTED WITH TURNING AND REPOSITIONING. IDANIA WLL. CALL LIGHT IN REACH
--- NOTE | 2020-03-08 05:00 | NUR ---
RESTING WITH EYES CLOSED, EASILY ROUSE AND ALERT. VSS. CALL LIGHT IN REACH
[2020-03-08 05:43] LABS: BASOPHILS 0.1 % (0-2); EOSINOPHILS 0.7 % (0-7); HEMATOCRIT 27.7 % (36.0-48.0); HEMOGLOBIN 9.2 g/dL (12-16); IMMATURE GRANULOCYTES 0.6 % (0-5); LYMPHOCYTES 11.9 % (15-50); MCHC 33.2 g/dL (31.0-37.0); MCV 90.2 fL (80.0-100.0); MONOCYTES 11.1 % (2-11); NEUTROPHILS 75.6 % (40-80); PLATELET COUNT 423 10x3/uL (130-400); RBC 3.07 10x6/uL (4.00-5.40); RDW 14.6 % (11.5-14.5); WBC 17.9 10x3/uL (4.8-10.8)
[2020-03-08 06:03] LABS: ALBUMIN 2.1 g/dL (3.4-5.0); ANION GAP 11.2 mmol/L (8-16); BILIRUBIN - TOTAL 0.73 mg/dL (0.2-1.3); CALCIUM 8.4 mg/dL (8.5-10.1); CARBON DIOXIDE 24.4 mmol/L (21.0-32.0); CREATININE - SERUM 1.2 mg/dL (0.6-1.3); POTASSIUM - SERUM 3.6 mmol/L (3.5-5.1); PROTEIN - SERUM 6.7 g/dL (6.4-8.2)
--- NOTE | 2020-03-08 14:08 | NUR ---
1330: DR. URBAN VISITED AFTER BEING CONSULTED BY DR. CROOKS. INFORMED PATIENT AND THAT HE COULD NOT DO ANYTHING SURGICALLY TO HER LEG TO HELP WITH BLOOD FLOW.
--- NOTE | 2020-03-08 19:20 | NUR ---
PT RECEIVED WITH EYES CLOSED AND CHEST RISING. EASILY AWOKEN TO VERBAL STIMULI. SPO2 ALARM SOUNDING WITH PT WITH FIRM BOX STACKER ON SIDE RAIL, WHEN PT RELEASED HAND SPO2 INCREASED TO 95-96 ROOM AIR. DENIES ANY NEEDS. CALL LIGHT IN REACH.
--- NOTE | 2020-03-08 21:58 | NUR ---
PT RESTING WITH EYES CLOSED AND CHEST RISING. EASILY AWOKEN TO VERBAL STIMULI. RECEIVED SCHEDULED MEDICATIONS PER NOV. TOLERATED WELL. CALL LIGHT IN REACH. WILL CONTINUE TO OBSERVE.
--- NOTE | 2020-03-08 23:30 | NUR ---
PT REPOSITIONED PER REQUEST. NO OTHER NEEDS MADE KNOWN AT THIS TIME
[2020-03-09] VITALS (22 sets, daily range): BP systolic 106–153; BP diastolic 58–99
--- NOTE | 2020-03-09 01:20 | NUR ---
PT RESTING WITH EYES CLOSED AND CHEST RISING. NO S/S OF DISTRESS NOTED. CALL LIGHT IN REACH. WILL CONTINUE TO OBSERVE.
--- NOTE | 2020-03-09 10:30 | NUR ---
Nutrition Follow-up: Pt reports eating <50% of breakfast this AM. Agreed to try Glucerna at lunch today. Reports small BM on 03/07. Noted plans for L BKA tomorrow. Diet: Diabetic PO intake: 0-50% Wt: 218.4# (03/08); 218# (02/27) Labs noted: Glu 158 Meds noted: Lantus, Protonix, Humalog, electrolyte protocol -Encourage PO intake and honor food preferences within diet restrictions. -Send Glucerna with lunch today for pt trial. -Monitor wt. -RD following.
[2020-03-09 13:03] LABS: ANION GAP 9.3 mmol/L (8-16); CALCIUM 8.2 mg/dL (8.5-10.1); CARBON DIOXIDE 29.2 mmol/L (21.0-32.0); CREATININE - SERUM 1.2 mg/dL (0.6-1.3); HEMATOCRIT 26.7 % (36.0-48.0); HEMOGLOBIN 8.9 g/dL (12-16); MCH 29.8 pg (26.0-34.0); MCHC 33.3 g/dL (31.0-37.0); MCV 89.3 fL (80.0-100.0); MEAN PLATELET VOLUME 9.7 fL (7.4-10.4); PLATELET COUNT 493 10x3/uL (130-400); POTASSIUM - SERUM 3.5 mmol/L (3.5-5.1); RBC 2.99 10x6/uL (4.00-5.40); RDW 14.5 % (11.5-14.5); WBC 21.3 10x3/uL (4.8-10.8)
[2020-03-09 15:30] LABS: EOSINOPHILS 2 % (0-7); LYMPHOCYTES 16 % (15-50); MONOCYTES 2 % (2-11); NEUTROPHILS 80 % (40-80); PLATELET ESTIMATE NORMAL
--- NOTE | 2020-03-09 18:23 | NUR ---
1400 REPOSITIONED IN BED USING PILLOWS FOR SUPPORT
--- NOTE | 2020-03-09 18:24 | NUR ---
1600 REPOSITIONED UNABLE TO GET COMFORTABLE PULLED UP IN BED WITH ASSIST X 2
--- NOTE | 2020-03-09 18:31 | NUR ---
1700 RESTING QUIETLY WITH EYES CLOSED
--- NOTE | 2020-03-09 18:52 | NUR ---
1814 D/C EDUARDO DRAIN FROM RIGHT GROIN CLEANSED AREA PLACED MEDIPORE TAPE TO SIGHT
--- NOTE | 2020-03-09 19:00 | NUR ---
SHIFT ASSESSMENT COMPLETED. PT CARE ASSUMED. MONITORS ON AND WORKING, VSS, PT AWAKE AND ALERT, CALL LIGHT WITHIN REACH, SEE FLOW SHEET FOR FURTHER DETAILS,. WILL CONTINUE TO OBSERVE.
--- NOTE | 2020-03-09 21:00 | NUR ---
PT AT BEDSIDE, PT TURNED AND REPOSITIONED FOR COMFORT. MONITORS ON AND WORKING, ICE PACK AND ICE CHIPS BROUGHT TO PT PER PT REQUEST. CALL LIGHT WITHIN REACH, WILL CONTINUE TO OBSERVE.
--- NOTE | 2020-03-09 23:00 | NUR ---
PT TURNED AND REPOSITIONED FOR COMFORT, MONITORS ON AND WORKING, VSS, CALL LIGHT WITHIN REACH, WILL CONTINUE TO OBSERVE.
[2020-03-10] VITALS (11 sets, daily range): BP systolic 115–144; BP diastolic 48–67
--- NOTE | 2020-03-10 01:00 | NUR ---
PT RESTING QUITELY IN BED, CALL LIGHT WITHIN REACH, WILL CONTINUE TO OBSERVE.
--- NOTE | 2020-03-10 03:00 | NUR ---
PT TURNED AND REPOSITIONED FOR COMFORT, MONITORS ON AND WORKING, VSS, CALL LIGHT WITHIN REACH, WILL CONTINUE TO OBSERVE.
--- NOTE | 2020-03-10 05:00 | NUR ---
PT LYING IN BED RESTING, MONITORS ON AND WORKING, VSS, CALL LIGHT WITHIN REACH, WILL CONTINUE TO OBSERVE.
[2020-03-10 05:26] LABS: BASOPHILS 0.1 % (0-2); EOSINOPHILS 0.8 % (0-7); HEMATOCRIT 27.8 % (36.0-48.0); HEMOGLOBIN 9.2 g/dL (12-16); IMMATURE GRANULOCYTES 0.5 % (0-5); LYMPHOCYTES 12.4 % (15-50); MCH 29.5 pg (26.0-34.0); MCHC 33.1 g/dL (31.0-37.0); MCV 89.1 fL (80.0-100.0); MEAN PLATELET VOLUME 9.8 fL (7.4-10.4); MONOCYTES 8.6 % (2-11); NEUTROPHILS 77.6 % (40-80); RBC 3.12 10x6/uL (4.00-5.40); RDW 14.4 % (11.5-14.5); WBC 19.6 10x3/uL (4.8-10.8)
[2020-03-10 05:52] LABS: PLATELET COUNT 595 10x3/uL (130-400)
[2020-03-10 06:20] LABS: ANION GAP 10.4 mmol/L (8-16); BILIRUBIN - TOTAL 0.62 mg/dL (0.2-1.3); CALCIUM 8.6 mg/dL (8.5-10.1); CARBON DIOXIDE 27.7 mmol/L (21.0-32.0); MAGNESIUM - SERUM 2.2 mg/dL (1.8-2.4); PHOSPHOROUS 4.1 mg/dL (2.5-4.9); POTASSIUM - SERUM 3.1 mmol/L (3.5-5.1)
--- NOTE | 2020-03-10 09:45 | NUR ---
0700 BEDSIDE REPORT RECEIVED FROM BABS TURBINATED BONE GRINDER COMPLETE
--- NOTE | 2020-03-10 09:46 | NUR ---
0755 CALLED SURGERY TO VERIFY THAT PATIENTS SURGERY WITH DR CAMPBELL HAS BEEN CANCELED TODAY WITH PLANS FOR SURGERY TOMORROW. WROTE ORDERS FOR A DIET TRAY FOR TODAY AND NPO AFTER MIDNIGHT
--- NOTE | 2020-03-10 09:48 | NUR ---
0815 CALLED KITCHEN TO MAKE SURE DIET ORDERS WERE NOTED BY DIETARY STAFF
--- NOTE | 2020-03-10 09:49 | NUR ---
0900 BREAKFAST TRAY SERVED APPETITE GOOD REPOSITIONED IN BED WITH PILLOW SUPPORT
--- NOTE | 2020-03-10 19:00 | NUR ---
SHIFT ASSESSMENT COMPLETED. PT CARE ASSUMED, MONITORS ON AND WORKING, VSS, PT AWAKE AND ALERT, CALL LIGHT WITHIN REACH, SEE FLOW SHEET FOR FURTHER DETAILS. WILL CONTINUE TO OBSERVE.
--- NOTE | 2020-03-10 21:00 | NUR ---
DR CROOKS AT BEDSIDE, SPOKE WITH HIM ABOUT LEFT GROIN INCISION, DR CROOKS STATED HE WILL FOLLOW UP TOMORROW, MONITORS ON AND WORKING, VSS, CALL LIGHT WITHIN REACH, DRESSING TO LEFT GROIN CHANGED AT THIS TIME, WILL CONTINUE TO OBSERVE.
--- NOTE | 2020-03-11 | NUR ---
TRNSFR PT DOWN TO ICU RM 2316 REPORT GIVEN TO JEANETTE RN, PT AWAKE AND ALERT, BELIONGINGS AT BEDSIDE, NO DISTRESS NOTED.
[2020-03-11 04:00] VITALS: BP 114/61
[2020-03-11 06:42] LABS: ANION GAP 11.8 mmol/L (8-16); BILIRUBIN - TOTAL 0.61 mg/dL (0.2-1.3); CALCIUM 8.8 mg/dL (8.5-10.1); CARBON DIOXIDE 27.1 mmol/L (21.0-32.0); MAGNESIUM - SERUM 2.4 mg/dL (1.8-2.4); PHOSPHOROUS 4.3 mg/dL (2.5-4.9); POTASSIUM - SERUM 3.9 mmol/L (3.5-5.1); PROTEIN - SERUM 7.2 g/dL (6.4-8.2)
[2020-03-11 07:00] VITALS: BP 125/82
--- NOTE | 2020-03-11 07:00 | NUR ---
ASSESSMENT PER FLOWSHEET. VOICES NO CO AT TIME.
[2020-03-11 07:04] LABS: HEMATOCRIT 27.3 % (36.0-48.0); MCH 29.3 pg (26.0-34.0); MCV 88.9 fL (80.0-100.0); MEAN PLATELET VOLUME 9.7 fL (7.4-10.4); PLATELET COUNT 615 10x3/uL (130-400); RBC 3.07 10x6/uL (4.00-5.40); RDW 14.4 % (11.5-14.5)
--- NOTE | 2020-03-11 10:00 | NUR ---
SLEEPING NO DISTRESS NOTED. SR UP X 2. CALL LIGHT WITHIN REACH.
[2020-03-11 11:00] VITALS: BP 115/74
--- NOTE | 2020-03-11 11:30 | NUR ---
Nutrition follow-up: Pt NPO for BKA, wound debridement today Labs reviewed Wt: 218# RDN following.
[2020-03-11 12:27] LABS: LYMPHOCYTES 13 % (15-50); MONOCYTES 11 % (2-11); NEUTROPHILS 76 % (40-80); PLATELET ESTIMATE INCREASED; ROULEAUX OCC
--- NOTE | 2020-03-11 13:10 | NUR ---
DAFNE PHONE #: [phone] REQUESTING OR TO CALL FOR UPDATES ON PT'S STATUS.
--- NOTE | 2020-03-11 14:26 | NUR ---
PT WAS TAKEN TO OR FOR SURGERY.
--- NOTE | 2020-03-11 15:10 | NUR ---
PT WILL BE TRANSFERRED TO 2223 POST-OP.
--- NOTE | 2020-03-11 15:26 | NUR ---
REPORT GIVEN TO RN TAKING CARE OF 4650
[2020-03-11 17:06] VITALS: BP 136/85
--- NOTE | 2020-03-11 18:20 | NUR ---
RECEIVED PT TO ROOM FROM RECOVERY, PT IS TEARFUL, PT HAS BKA ON RT LEG AND NEW BKA LEG. SPOKE TO PT DAUGHTER AND EXPLAINED SURGERY HAS BEEN DONE AND COMPLETED AND NOW PT IS ON MEDICAL SURGICAL FLOOR. IV IN LT UPPER ARM MIDLINE. PT HAS LOCKHART CATHETER, NO NEEDS VOICED AT THIS TIME. CONTINUE WITH PLAN OF CARE
--- NOTE | 2020-03-11 19:30 | NUR ---
PT LYING IN BED RESTING WITHOUT DISTRESS, AOX4. IV LEFT UPPER ARM INFUSING 1/2NS @ 50. JUST RECEIVED NORCO FOR PAIN. DENIES OTHER NEEDS AT THIS TIME. WOUND VAC TO LEFT GROIN DRESSING CDI. POST OP LEFT BKA, DRESSING CDI, ELEVATED ON PILLOWS, ICE PACKS APPLIED. CL IN REACH, WILL CTM
[2020-03-11 20:00] VITALS: BP 139/50
--- NOTE | 2020-03-11 21:50 | NUR ---
PT CRYING AND YELLING HELP OUT INTO HALLWAY. STATES SHE IS HURTING REALLY BAD AND THAT THE NORCO DO NOT HELP. CALLED DR CAMPBELL, ORDER RECIEVED FOR DILAUDID 0.5MG Q4PRN FOR SEVERE PAIN. GAVE ORDERED
--- NOTE | 2020-03-11 23:00 | NUR ---
PT CRYING STATING SHE STILL HURTS. CALLED DR CAMPBELL, TOLD TO GIVE ATIVAN AND ORDER RECIEVED FOR VISTARIL 50MG TO GO WITH KATHRYN
[2020-03-12] VITALS: BP 132/68
[2020-03-12 04:00] VITALS: BP 133/67
[2020-03-12 05:33] LABS: BASOPHILS 0.2 % (0-2); EOSINOPHILS 1.3 % (0-7); HEMATOCRIT 26.3 % (36.0-48.0); HEMOGLOBIN 8.5 g/dL (12-16); IMMATURE GRANULOCYTES 0.5 % (0-5); LYMPHOCYTES 20.8 % (15-50); MCHC 32.3 g/dL (31.0-37.0); MCV 89.8 fL (80.0-100.0); MEAN PLATELET VOLUME 9.2 fL (7.4-10.4); MONOCYTES 8.1 % (2-11); NEUTROPHILS 69.1 % (40-80); PLATELET COUNT 627 10x3/uL (130-400); RBC 2.93 10x6/uL (4.00-5.40); RDW 14.5 % (11.5-14.5)
[2020-03-12 05:38] LABS: WBC 12.6 10x3/uL (4.8-10.8)
[2020-03-12 06:20] LABS: ALBUMIN 1.9 g/dL (3.4-5.0); ANION GAP 8.9 mmol/L (8-16); BILIRUBIN - TOTAL 0.39 mg/dL (0.2-1.3); CALCIUM 8.5 mg/dL (8.5-10.1); CARBON DIOXIDE 28.2 mmol/L (21.0-32.0); MAGNESIUM - SERUM 2.3 mg/dL (1.8-2.4); PHOSPHOROUS 3.8 mg/dL (2.5-4.9); POTASSIUM - SERUM 4.1 mmol/L (3.5-5.1); PROTEIN - SERUM 6.8 g/dL (6.4-8.2)
[2020-03-12 08:00] VITALS: BP 136/55
--- NOTE | 2020-03-12 08:02 | OP ---
PATIENT NAME: NIC RUBY I MEDICAL RECORD: [id number] :60 LOCATION: D.2223 ADMISSION DATE:02/28/20 SURGEON: SARMAD CAMPBELL DO DATE OF OPERATION: 03/11/2020 PROCEDURE PERFORMED: Left below-knee amputation, left groin wound irrigation, debridement and wound VAC application. PREOPERATIVE DIAGNOSIS: Left lower extremity peripheral vascular disease and left groin wound dehiscence. POSTOPERATIVE DIAGNOSES: Left lower extremity peripheral vascular disease and left groin wound dehiscence. INDICATIONS: Ms. Nic Ruby is a 60-year-old female who had severe peripheral vascular disease. She has no blood flow really below the calf area. I was consulted on her after a revascularization procedure and was tried and she said that her left leg was hurting her and due to the pain asked me to amputate it. I told her we would try below the knee and if we could get that to heal if not we do an clitc-jrk-tlcz amputation, also same time Dr. Feldman had performed a vascular procedure in the groin and the wound had dehisced and he had taken it back for irrigation and debridement and since I was going to be back in there and he asked if I would do it and put a wound VAC on, I told him I would. She is aware of all the risks of all those procedures and signed the consent. SURGEON: Sarmad Campbell DO DESCRIPTION OF SURGERY: The patient was taken to the operative suite, laid in supine position, given general anesthetic, and a gram of Ancef. She was then sedated and LMA was placed. The left lower extremity was then prepped and draped in sterile fashion. Timeout was performed. Everyone was agreeance with correct site, side, patient, and procedure. We then began by doing the left lnmlc-jde-nmaz amputation and we made a fishmouth incision with a high amputation of the tibia, made a careful dissection down through each compartment and tied off the vessels and then cut through the tibia and then a cm proximal to the fibula and then bevelled the tibia, removed the lower leg, and debrided some more of the soft tissue and put 2 holes in the tibia and brought up the fascia, doing a myodesis with #2 Ethibond. Once that was completed, I was assisted by Michelle Bowens, certified dietary manager and Fernando Adler, certified surgical first aid officer in closing, with a #1 Vicryl, first bring the fascia up and then the skin with 2-0 Vicryl in inverted interrupted fashion and using 2-0 Prolene and a Donati and a retention type suture fashion as well as horizontal mattress closed the skin. We then dressed that with Adaptic, 4 x 4s, ABD, Kerlix and Ru wrap and then tore the dressing down, reprepped and rescrubbed and draped the left groin wound with Betadine and then opened the wound and irrigated out with 3 liters normal saline. There was purulent fluid coming out of it and cleaned up the wound edges and removed the skin to get it bleeding and put in a black wound VAC sponge, measured the wound to be 4 cm x 20 cm and 4 cm in depth. This was then sealed and the wound VAC was put on and she was awakened and taken to recovery in stable condition. I did a debridement with curettes and removed any devitalized tissue prior to putting wound VAC sponge. BLOOD LOSS: Minimal. OPERATIVE REPORT [id number] NIC RUBY I COMPLICATION: None. TRANSINT:[id number] Voice Confirmation ID: [id number] DOCUMENT ID: [id number] SARMAD CAMPBELL DO at 0802 CC: [id number] DICTATION DATE: 03/11/20 1621 CIVIL PREPAREDNESS COORDINATOR: 03/12/20 0137 ADM IN [facility] [address] [place] [address]
[2020-03-12 12:00] VITALS: BP 121/55
--- NOTE | 2020-03-12 14:21 | MORECARE ---
CASE MANAGEMENT DISCHARGE SUMMARY PATIENT: STEFANY RUBY I UNIT: [id number] ADM DATE: 02/28/20 AGE: 60 : 60 SEX: F ROOM/BED: D.2223 AUTHOR: LUIS,DOC PHYSICIAN: REFERRING PHYSICIAN: CECILLE MCCALL MD DATE OF SERVICE: 03/12/20 Discharge Plan Patient Name: STEFANY RUBY Facility: [facility]:[place] : 1960 Planned Disposition: Anticipated Discharge Date: Discharge Date: Expected LOS: Initial Reviewer: [email or web address] Initial Review Date: 02/28/2020 Generated: 03/12/20 3:20 pm DCP- Discharge Planning Updated by [id number]: Rosey Huerta on 03/03/20 4:[address] Patient Name: STEFANY RUBY Admission Status: Elective Accout number: [id number] Admission Date: 02-28-2020 : 1960 Admission Diagnosis:NONTRAUMATIC ISCHEMIC INFARCTION OF MUSCLE, UNSP LOWER Attending: CECILLE MCCALL Current LOS: 4 Anticipated DC Date: Planned Disposition: Primary Insurance: [employer] ADV Discharge Planning Comments: CM met with patient to complete initial dc planning assessment. CM educated patient on the CM role and verbal consent given by patient to complete assessment. Patient lives at home with family. Patient is independent. At discharge patient plans to return home and feels this is a safe discharge. CM discussed availability of home health, rehab services, and medical equipment. Patient states that she has all the DME that she needs. Patient will have family to transport home. Patient denied known discharge needs at this time. CM will continue to follow and will assist as needed with dc plans/needs. Supervisor Erection Shop: Rosey Huerta DCPIA - Discharge Planning Initial Assessment Updated by [email or web address]: Rosey Huerta on 03/03/20 5:47 pm * Is the patient Alert and Oriented? Yes * How many steps to enter\exit or inside your home? 18 * PCP CAL * Pharmacy [facility] [address] * Preadmission Environment Home with Family * ADLs Independent * Other Equipment WALKER, BSC, W/C, SC * List name and contact numbers for known caregivers / representatives who currently or will assist patient after discharge: DAFNE RUBY - [phone] * Verbal permission to speak to the caregivers and representatives has been obtained from the patient. Yes * Community resources currently utilized None * Additional services required to return to the preadmission environment? No * Can the patient safely return to the preadmission environment? Yes * Has this patient been hospitalized within the prior 30 days at any hospital? No External Providers External Provider: [facility] [employer] Next Contact Date: Service Request Date: Service Type: Resolution: Reviewer: Comments: Last DP export: 03/03/20 4:53 p Patient Name: STEFANY RUBY Page [phone] at 1421 All edits/amendments must be made on the electronic document DICTATION DATE: 03/12/201419 PLATFORM LOADER: ELLA 03/12/201419 RPT#: [id number] DC DATE: STATUS: ADM IN [facility] [address] [place] [address] END OF REPORT
--- NOTE | 2020-03-12 14:44 | MORECARE ---
CASE MANAGEMENT DISCHARGE SUMMARY PATIENT: STEFANY RUBY I UNIT: [id number] ADM DATE: 02/28/20 AGE: 60 : 60 SEX: F ROOM/BED: D.2223 AUTHOR: LUISDOC PHYSICIAN: REFERRING PHYSICIAN: CECILLE MCCALL MD DATE OF SERVICE: 03/12/20 Discharge Plan Patient Name: STEFANY RUBY Facility: [facility]:[place] : 1960 Planned Disposition: Anticipated Discharge Date: Discharge Date: Expected LOS: Initial Reviewer: [email or web address] Initial Review Date: 02/28/2020 Generated: 03/12/20 3:43 pm Comments DCP- Discharge Planning Updated by [id number]: Elke Whitney on 03/12/20 1:[address] Patient Name: STEFANY RUBY Admission Status: Elective Accout number: [id number] Admission Date: 02-28-2020 : 1960 Admission Diagnosis:NONTRAUMATIC ISCHEMIC INFARCTION OF MUSCLE, UNSP LOWER Attending: CECILLE MCCALL Current LOS: 13 Anticipated DC Date: Planned Disposition: Primary Insurance: [employer] MEDICARE ADV Discharge Planning Comments: FAX SENT TO [facility]. Monogram Operator: Elke Whitney DCP- Discharge Planning Updated by [email or web address]: Rosey Huerta on 03/03/20 4:[address] Patient Name: STEFANY RUBY Admission Status: Elective Accout number: [id number] Admission Date: 02-28-2020 : 1960 Admission Diagnosis:NONTRAUMATIC ISCHEMIC INFARCTION OF MUSCLE, UNSP LOWER Attending: CECILLE MCCALL Current LOS: 4 Anticipated DC Date: Planned Disposition: Primary Insurance: [employer] MEDICARE ADV Discharge Planning Comments: CM met with patient to complete initial dc planning assessment. CM educated patient on the CM role and verbal consent given by patient to complete assessment. Patient lives at home with family. Patient is independent. At discharge patient plans to return home and feels this is a safe discharge. CM discussed availability of home health, rehab services, and medical equipment. Patient states that she has all the DME that she needs. Patient will have family to transport home. Patient denied known discharge needs at this time. CM will continue to follow and will assist as needed with dc plans/needs. Monogram Operator: Rosey uHerta DCPIA - Discharge Planning Initial Assessment Updated by [email or web address]: Rosey Huerta on 03/03/20 5:47 pm * Is the patient Alert and Oriented? Yes * How many steps to enter\exit or inside your home? 18 * PCP CAL * Pharmacy [facility] * Preadmission Environment Home with Family * ADLs Independent * Other Equipment WALKER, BSC, W/C, SC * List name and contact numbers for known caregivers / representatives who currently or will assist patient after discharge: DAFNE RUBY - [phone] * Verbal permission to speak to the caregivers and representatives has been obtained from the patient. Yes * Community resources currently utilized None * Additional services required to return to the preadmission environment? No * Can the patient safely return to the preadmission environment? Yes * Has this patient been hospitalized within the prior 30 days at any hospital? No Last DP export: 03/12/20 1:21 pm Patient Name: STEFANY RUBY Page [phone] at 1444 All edits/amendments must be made on the electronic document DICTATION DATE: 03/12/201442 CHIEF CUSTOMER OFFICER: ELLA 03/12/20 144 RPT#: [id number] DC DATE: STATUS: ADM IN [facility] [address] [place] [address] END OF REPORT
[2020-03-12 16:00] VITALS: BP 125/53
--- NOTE | 2020-03-12 18:14 | MORECARE ---
CASE MANAGEMENT DISCHARGE SUMMARY PATIENT: STEFANY RUBY I UNIT: [id number] ADM DATE: 02/28/20 AGE: 60 : 60 SEX: F ROOM/BED: D.2223 AUTHOR: LUIS,DOC PHYSICIAN: REFERRING PHYSICIAN: CECILLE MCCALL MD DATE OF SERVICE: 03/12/20 Discharge Plan Patient Name: STEFANY RUBY Facility: [facility]:[place] : 1960 Planned Disposition: Anticipated Discharge Date: Discharge Date: Expected LOS: Initial Reviewer: [email or web address] Initial Review Date: 02/28/2020 Generated: 03/12/20 7:13 pm Comments DCP- Discharge Planning Updated by [email or web address]: Elke Whitney on 03/12/20 1:[address] Patient Name: STEFANY RUBY Admission Status: Elective Accout number: [id number] Admission Date: 02-28-2020 : 1960 Admission Diagnosis:NONTRAUMATIC ISCHEMIC INFARCTION OF MUSCLE, UNSP LOWER Attending: CECILLE MCCALL Current LOS: 13 Anticipated DC Date: Planned Disposition: Primary Insurance: [employer] MEDICARE ADV Discharge Planning Comments: FAX SENT TO [facility] FOR WOUND VAC. Head Nurse: Elke Whitney DCP- Discharge Planning Updated by [email or web address]: Rosey Huerta on 03/03/20 4:[address] Patient Name: STEFANY RUBY Admission Status: Elective Accout number: [id number] Admission Date: 02-28-2020 : 1960 Admission Diagnosis:NONTRAUMATIC ISCHEMIC INFARCTION OF MUSCLE, UNSP LOWER Attending: CECILLE MCCALL Current LOS: 4 Anticipated DC Date: Planned Disposition: Primary Insurance: [employer] MEDICARE ADV Discharge Planning Comments: CM met with patient to complete initial dc planning assessment. CM educated patient on the CM role and verbal consent given by patient to complete assessment. Patient lives at home with family. Patient is independent. At discharge patient plans to return home and feels this is a safe discharge. CM discussed availability of home health, rehab services, and medical equipment. Patient states that she has all the DME that she needs. Patient will have family to transport home. Patient denied known discharge needs at this time. CM will continue to follow and will assist as needed with dc plans/needs. Head Nurse: Rosey Huerta DCPIA - Discharge Planning Initial Assessment Updated by [email or web address]: Rosey Huerta on 03/03/20 5:47 pm * Is the patient Alert and Oriented? Yes * How many steps to enter\exit or inside your home? 18 * PCP CAL * Pharmacy [facility] * Preadmission Environment Home with Family * ADLs Independent * Other Equipment WALKER, BSC, W/C, SC * List name and contact numbers for known caregivers / representatives who currently or will assist patient after discharge: DAFNE RUBY - [phone] * Verbal permission to speak to the caregivers and representatives has been obtained from the patient. Yes * Community resources currently utilized None * Additional services required to return to the preadmission environment? No * Can the patient safely return to the preadmission environment? Yes * Has this patient been hospitalized within the prior 30 days at any hospital? No Last DP export: 03/12/20 1:44 pm Patient Name: STEFANY RUBY Page 31875 at 1814 All edits/amendments must be made on the electronic document DICTATION DATE: 03/12/201812 GROUP CHIEF OPERATOR: ELLA 03/12/201812 RPT#: [id number] DC DATE: STATUS: ADM IN [facility] [address] [place] [address] END OF REPORT
--- NOTE | 2020-03-12 19:13 | MORECARE ---
CASE MANAGEMENT DISCHARGE SUMMARY PATIENT: STEFANY RUBY I UNIT: [id number] ADM DATE: 02/28/20 AGE: 60 : 60 SEX: F ROOM/BED: D.2223 AUTHOR: LUIS,DOC PHYSICIAN: REFERRING PHYSICIAN: CECILLE MCCALL MD DATE OF SERVICE: 03/12/20 Discharge Plan Patient Name: STEFANY RUBY Facility: [facility]:[place] : 1960 Planned Disposition: Anticipated Discharge Date: Discharge Date: Expected LOS: Initial Reviewer: [email or web address] Initial Review Date: 02/28/2020 Generated: 03/12/20 8:12 pm Comments DCP- Discharge Planning Updated by [id number]: Elke Whitney on 03/12/20 1:[address] Patient Name: STEFANY RUBY Admission Status: Elective Accout number: [id number] Admission Date: 02-28-2020 : 1960 Admission Diagnosis:NONTRAUMATIC ISCHEMIC INFARCTION OF MUSCLE, UNSP LOWER Attending: CECILLE MCCALL Current LOS: 13 Anticipated DC Date: Planned Disposition: Primary Insurance: [employer] MEDICARE ADV Discharge Planning Comments: FAX SENT TO [facility] FOR WOUND [facility]. Film Processing Utility Worker: Elke Whitney DCP- Discharge Planning Updated by [email or web address]: Rosey Huerta on 03/03/20 4:[address] Patient Name: STEFANY RUBY Admission Status: Elective Accout number: [id number] Admission Date: 02-28-2020 : 1960 Admission Diagnosis:NONTRAUMATIC ISCHEMIC INFARCTION OF MUSCLE, UNSP LOWER Attending: CECILLE MCCALL Current LOS: 4 Anticipated DC Date: Planned Disposition: Primary Insurance: [employer] MEDICARE ADV Discharge Planning Comments: CM met with patient to complete initial dc planning assessment. CM educated patient on the CM role and verbal consent given by patient to complete assessment. Patient lives at home with family. Patient is independent. At discharge patient plans to return home and feels this is a safe discharge. CM discussed availability of home health, rehab services, and medical equipment. Patient states that she has all the DME that she needs. Patient will have family to transport home. Patient denied known discharge needs at this time. CM will continue to follow and will assist as needed with dc plans/needs. Film Processing Utility Worker: Rosey Huerta DCPIA - Discharge Planning Initial Assessment Updated by [email or web address]: Rosey Huerta on 03/03/20 5:47 pm * Is the patient Alert and Oriented? Yes * How many steps to enter\exit or inside your home? 18 * PCP CAL * Pharmacy [facility] * Preadmission Environment Home with Family * ADLs Independent * Other Equipment WALKER, BSC, W/C, SC * List name and contact numbers for known caregivers / representatives who currently or will assist patient after discharge: DAFNE RUBY - [phone] * Verbal permission to speak to the caregivers and representatives has been obtained from the patient. Yes * Community resources currently utilized None * Additional services required to return to the preadmission environment? No * Can the patient safely return to the preadmission environment? Yes * Has this patient been hospitalized within the prior 30 days at any hospital? No Last DP export: 03/12/20 5:14 pm Patient Name: STEFANY RUBY Page 20759 at 1913 All edits/amendments must be made on the electronic document DICTATION DATE: 03/12/201912 GLOBAL MARKETING MANAGER: ELLA 03/12/201912 RPT#: [id number] DC DATE: STATUS: ADM IN [facility] [address] [place] [address] END OF REPORT
--- NOTE | 2020-03-12 19:20 | MORECARE ---
CASE MANAGEMENT DISCHARGE SUMMARY PATIENT: STEFANY RUBY I UNIT: [id number] ADM DATE: 02/28/20 AGE: 60 : 60 SEX: F ROOM/BED: D.2223 AUTHOR: JEAN CARLOS SMITH PHYSICIAN: REFERRING PHYSICIAN: CECILLE MCCALL MD DATE OF SERVICE: 03/12/20 Discharge Plan Patient Name: STEFANY RUBY Facility: [facility]:[place] : 1960 Planned Disposition: Anticipated Discharge Date: Discharge Date: Expected LOS: Initial Reviewer: [email or web address] Initial Review Date: 02/28/2020 Generated: 03/12/20 8:20 pm Comments DCP- Discharge Planning Updated by [id number]: Elke Whitney on 03/12/20 6:[address] Patient Name: STEFANY RUBY Admission Status: Elective Accout number: [id number] Admission Date: 02-28-2020 : 1960 Admission Diagnosis:NONTRAUMATIC ISCHEMIC INFARCTION OF MUSCLE, UNSP LOWER Attending: CECILLE MCCALL Current LOS: 13 Anticipated DC Date: Planned Disposition: Primary Insurance: [employer] MEDIC[employer] ADV Discharge Planning Comments: I SPOKE WITH PATIENT TODAY AND SHE STATES SHE HAS WC BSC AND ALL OTHER EQUIPMENT SHE MAY NEED. SHE IS POD 1 AND NOT FEELING GOOD TODAY. AT TIME OF DC SHE SAID IF SHE NEEDS HH SHE WOULD LIKE [facility]. WE MAY NEED TO DISCUSS REHAB WITH HER WHEN SHE FEELS BETTER. SHE SAYS SHE LIVES AT HOME WITH HER . CM WILL FOLLOW AND ASSIST NEEDED. Reflesher: Elke Whitney DCP- Discharge Planning Updated by [email or web address]: Elke Whitney on 03/12/20 1:[address] Patient Name: STEFANY RUBY Admission Status: Elective Accout number: [id number] Admission Date: 02-28-2020 : 1960 Admission Diagnosis:NONTRAUMATIC ISCHEMIC INFARCTION OF MUSCLE, UNSP LOWER Attending: CECILLE MCCALL Current LOS: 13 Anticipated DC Date: Planned Disposition: Primary Insurance: [employer] MEDICARE ADV Discharge Planning Comments: FAX SENT TO [facility] FOR WOUND VAC. Reflesher: Elke Whitney DCP- Discharge Planning Updated by [email or web address]: Rosey Huerta on 03/03/20 4:[address] Patient Name: STEFANY RUBY Admission Status: Elective Accout number: [id number] Admission Date: 02-28-2020 : 1960 Admission Diagnosis:NONTRAUMATIC ISCHEMIC INFARCTION OF MUSCLE, UNSP LOWER Attending: CECILLE MCCALL Current LOS: 4 Anticipated DC Date: Planned Disposition: Primary [facility] Discharge Planning Comments: CM met with patient to complete initial dc planning assessment. CM educated patient on the CM role and verbal consent given by patient to complete assessment. Patient lives at home with family. Patient is independent. At discharge patient plans to return home and feels this is a safe discharge. CM discussed availability of home health, rehab services, and medical equipment. Patient states that she has all the DME that she needs. Patient will have family to transport home. Patient denied known discharge needs at this time. CM will continue to follow and will assist as needed with dc plans/needs. Reflesher: Rosey Starkeyr DCPIA - Discharge Planning Initial Assessment Updated by [email or web address]: Rosey Huerta on 03/03/20 5:47 pm * Is the patient Alert and Oriented? Yes * How many steps to enter\exit or inside your home? 18 * PCP CAL * Pharmacy [facility] * Preadmission Environment Home with Family * ADLs Independent * Other Equipment WALKER, BSC, W/C, SC * List name and contact numbers for known caregivers / representatives who currently or will assist patient after discharge: DAFNE RUBY - [phone] * Verbal permission to speak to the caregivers and representatives has been obtained from the patient. Yes * Community resources currently utilized None * Additional services required to return to the preadmission environment? No * Can the patient safely return to the preadmission environment? Yes * Has this patient been hospitalized within the prior 30 days at any hospital? No Last DP export: 03/12/20 6:13 pm Patient Name: STEFANY RUBY Page 60841 at 1920 All edits/amendments must be made on the electronic document DICTATION DATE: 03/12/201919 SCIENTIFIC ILLUSTRATOR: ELLA 03/12/201919 RPT#: [id number] DC DATE: STATUS: ADM IN [facility] [address] [place] [address] END OF REPORT
[2020-03-12 20:00] VITALS: BP 137/62
[2020-03-13] VITALS: BP 148/70
[2020-03-13 04:00] VITALS: BP 130/61
[2020-03-13 06:38] LABS: BASOPHILS 0.2 % (0-2); HEMOGLOBIN 8.6 g/dL (12-16); IMMATURE GRANULOCYTES 0.9 % (0-5); LYMPHOCYTES 20.1 % (15-50); MCH 29.2 pg (26.0-34.0); MCHC 31.9 g/dL (31.0-37.0); MCV 91.5 fL (80.0-100.0); MEAN PLATELET VOLUME 9.3 fL (7.4-10.4); MONOCYTES 8.3 % (2-11); NEUTROPHILS 68.5 % (40-80); PLATELET COUNT 732 10x3/uL (130-400); RBC 2.95 10x6/uL (4.00-5.40); RDW 14.7 % (11.5-14.5); WBC 14.8 10x3/uL (4.8-10.8)
[2020-03-13 06:49] LABS: ALBUMIN 2.1 g/dL (3.4-5.0); ANION GAP 14.1 mmol/L (8-16); BILIRUBIN - TOTAL 0.6 mg/dL (0.2-1.3); CALCIUM 8.4 mg/dL (8.5-10.1); CARBON DIOXIDE 26.4 mmol/L (21.0-32.0); CREATININE - SERUM 1.1 mg/dL (0.6-1.3); MAGNESIUM - SERUM 2.2 mg/dL (1.8-2.4); PHOSPHOROUS 3.8 mg/dL (2.5-4.9); POTASSIUM - SERUM 4.5 mmol/L (3.5-5.1); PROTEIN - SERUM 6.4 g/dL (6.4-8.2)
[2020-03-13 08:00] VITALS: BP 113/57
--- NOTE | 2020-03-13 08:00 | NUR ---
ASSESSMENT PER FLOW SHEET. PATIENT IS WITHOUT DISTRESS.CALL LIGHT IN REACH. DOOR OPEN
[2020-03-13 12:00] VITALS: BP 133/60
[2020-03-13 16:00] VITALS: BP 135/67
--- NOTE | 2020-03-13 16:29 | MORECARE ---
CASE MANAGEMENT DISCHARGE SUMMARY PATIENT: STEFANY RUBY I UNIT: [id number] ADM DATE: 02/28/20 AGE: 60 : 60 SEX: F ROOM/BED: D.2223 AUTHOR: LUISDOC PHYSICIAN: REFERRING PHYSICIAN: CECILLE MCCALL MD DATE OF SERVICE: 03/13/20 Discharge Plan Patient Name: STEFANY RUBY Facility: [facility]:[place] : 1960 Planned Disposition: Anticipated Discharge Date: Discharge Date: Expected LOS: Initial Reviewer: [email or web address] Initial Review Date: 02/28/2020 Generated: 03/13/20 5:29 pm Comments DCP- Discharge Planning Updated by [email or web address]: Jacki Barajas on 03/13/20 3:[address] [facility] wound vac is approved and in materials when patient is ready for discharged it will need to be brought up to the floor serial # [id number] Earnestine with materials will have it on her desk with a copy of the assignment form DCP- Discharge Planning Updated by [email or web address]: Elke Whitney on 03/12/20 6:[address] Patient Name: STEFANY RUBY Admission Status: Elective Accout number: [id number] Admission Date: 02-28-2020 : 1960 Admission Diagnosis:NONTRAUMATIC ISCHEMIC INFARCTION OF MUSCLE, UNSP LOWER Attending: CECILLE MCCALL Current LOS: 13 Anticipated DC Date: Planned Disposition: Primary Insurance: [employer]ARE ADV Discharge Planning Comments: I SPOKE WITH PATIENT TODAY AND SHE STATES SHE HAS WC BSC AND ALL OTHER EQUIPMENT SHE MAY NEED. SHE IS POD 1 AND NOT FEELING GOOD TODAY. AT TIME OF DC SHE SAID IF SHE NEEDS HH SHE WOULD LIKE [facility]. WE MAY NEED TO DISCUSS REHAB WITH HER WHEN SHE FEELS BETTER. SHE SAYS SHE LIVES AT HOME WITH HER . CM WILL FOLLOW AND ASSIST NEEDED. Hepatology Physician: Elke Whitney DCP- Discharge Planning Updated by [email or web address]: Elke Whitney on 03/12/20 1:[address] Patient Name: STEFANY RUBY Admission Status: Elective Accout number: [id number] Admission Date: 02-28-2020 : 1960 Admission Diagnosis:NONTRAUMATIC ISCHEMIC INFARCTION OF MUSCLE, UNSP LOWER Attending: CECILLE MCCALL Current LOS: 13 Anticipated DC Date: Planned Disposition: Primary Insurance: [employer] MEDICARE ADV Discharge Planning Comments: FAX SENT TO [facility] FOR WOUND VAC. Hepatology Physician: Elke Whitney DCP- Discharge Planning Updated by [email or web address]: Rosey Huerta on 03/03/20 4:[address] Patient Name: STEFANY RUBY Admission Status: Elective Accout number: [id number] Admission Date: 02-28-2020 : 1960 Admission Diagnosis:NONTRAUMATIC ISCHEMIC INFARCTION OF MUSCLE, UNSP LOWER Attending: CECILLE MCCALL Current LOS: 4 Anticipated DC Date: Planned Disposition: Primary Insurance: [employer] MEDICARE ADV Discharge Planning Comments: CM met with patient to complete initial dc planning assessment. CM educated patient on the CM role and verbal consent given by patient to complete assessment. Patient lives at home with family. Patient is independent. At discharge patient plans to return home and feels this is a safe discharge. CM discussed availability of home health, rehab services, and medical equipment. Patient states that she has all the DME that she needs. Patient will have family to transport home. Patient denied known discharge needs at this time. CM will continue to follow and will assist as needed with dc plans/needs. Hepatology Physician: Rosey Huerta DCPIA - Discharge Planning Initial Assessment Updated by [email or web address]: Rosey Huerta on 03/03/20 5:47 pm * Is the patient Alert and Oriented? Yes * How many steps to enter\exit or inside your home? 18 * PCP CAL * Pharmacy [facility] * Preadmission Environment Home with Family * ADLs Independent * Other Equipment WALKER, BSC, W/C, SC * List name and contact numbers for known caregivers / representatives who currently or will assist patient after discharge: DAFNE FLORI - [phone] * Verbal permission to speak to the caregivers and representatives has been obtained from the patient. Yes * Community resources currently utilized None * Additional services required to return to the preadmission environment? No * Can the patient safely return to the preadmission environment? Yes * Has this patient been hospitalized within the prior 30 days at any hospital? No Last DP export: 03/12/20 6:20 pm Patient Name: STEFANY RUBY Page 18306 at 1629 All edits/amendments must be made on the electronic document DICTATION DATE: 03/13/201628 AMPHIBIOUS OPERATIONS OFFICER: ELLA 03/13/201628 RPT#: [id number] DC DATE: STATUS: ADM IN [facility] [address] [place] [address] END OF REPORT
--- NOTE | 2020-03-13 17:15 | MORECARE ---
CASE MANAGEMENT DISCHARGE SUMMARY PATIENT: STEFANY RUBY I UNIT: [id number] ADM DATE: 02/28/20 AGE: 60 : 60 SEX: F ROOM/BED: D.2223 AUTHOR: LUISDOC PHYSICIAN: REFERRING PHYSICIAN: CECILLE MCCALL MD DATE OF SERVICE: 03/13/20 Discharge Plan Patient Name: STEFANY RUBY Facility: [facility]:[place] : 1960 Planned Disposition: Anticipated Discharge Date: Discharge Date: Expected LOS: Initial Reviewer: [email or web address] Initial Review Date: 02/28/2020 Generated: 03/13/20 6:15 pm Comments DCP- Discharge Planning Updated by [email or web address]: Jacki Barajas on 03/13/20 3:[address] kci wound vac is approved and in materials when patient is ready for discharged it will need to be brought up to the floor serial # [id number] Earnestine with materials will have it on her desk with a copy of the assignment form DCP- Discharge Planning Updated by [email or web address]: Elke Whitney on 03/12/20 6:[address] Patient Name: STEFANY RUBY Admission Status: Elective Accout number: [id number] Admission Date: 02-28-2020 : 1960 Admission Diagnosis:NONTRAUMATIC ISCHEMIC INFARCTION OF MUSCLE, UNSP LOWER Attending: CECILLE MCCALL Current LOS: 13 Anticipated DC Date: Planned Disposition: Primary Insurance: [employer] ADV Discharge Planning Comments: I SPOKE WITH PATIENT TODAY AND SHE STATES SHE HAS WC BSC AND ALL OTHER EQUIPMENT SHE MAY NEED. SHE IS POD 1 AND NOT FEELING GOOD TODAY. AT TIME OF DC SHE SAID IF SHE NEEDS HH SHE WOULD LIKE [facility]. WE MAY NEED TO DISCUSS REHAB WITH HER WHEN SHE FEELS BETTER. SHE SAYS SHE LIVES AT HOME WITH HER . CM WILL FOLLOW AND ASSIST NEEDED. Hims Coder: Elke Whitney DCP- Discharge Planning Updated by [email or web address]: Elke Whitney on 03/12/20 1:[address] Patient Name: STEFANY RUBY Admission Status: Elective Accout number: [id number] Admission Date: 02-28-2020 : 1960 Admission Diagnosis:NONTRAUMATIC ISCHEMIC INFARCTION OF MUSCLE, UNSP LOWER Attending: CECILLE MCCALL Current LOS: 13 Anticipated DC Date: Planned Disposition: Primary Insurance: [employer]ARE ADV Discharge Planning Comments: FAX SENT TO [facility] FOR WOUND VAC. Hims Coder: Elke Whitney DCP- Discharge Planning Updated by [id number]: Rosey Huerta on 03/03/20 4:[address] Patient Name: STEFANY RUBY Admission Status: Elective Accout number: [id number] Admission Date: 02-28-2020 : 1960 Admission Diagnosis:NONTRAUMATIC ISCHEMIC INFARCTION OF MUSCLE, UNSP LOWER Attending: CECILLE MCCALL Current LOS: 4 Anticipated DC Date: Planned Disposition: Primary Insurance: [employer] ADV Discharge Planning Comments: CM met with patient to complete initial dc planning assessment. CM educated patient on the CM role and verbal consent given by patient to complete assessment. Patient lives at home with family. Patient is independent. At discharge patient plans to return home and feels this is a safe discharge. CM discussed availability of home health, rehab services, and medical equipment. Patient states that she has all the DME that she needs. Patient will have family to transport home. Patient denied known discharge needs at this time. CM will continue to follow and will assist as needed with dc plans/needs. Hims Coder: Rosey Huerta DCPIA - Discharge Planning Initial Assessment Updated by [email or web address]: Rosey Huerta on 03/03/20 5:47 pm * Is the patient Alert and Oriented? Yes * How many steps to enter\exit or inside your home? 18 * PCP CAL * Pharmacy [facility] * Preadmission Environment Home with Family * ADLs Independent * Other Equipment WALKER, BSC, W/C, SC * List name and contact numbers for known caregivers / representatives who currently or will assist patient after discharge: DAFNE FLORI - [phone] * Verbal permission to speak to the caregivers and representatives has been obtained from the patient. Yes * Community resources currently utilized None * Additional services required to return to the preadmission environment? No * Can the patient safely return to the preadmission environment? Yes * Has this patient been hospitalized within the prior 30 days at any hospital? No Last DP export: 03/13/20 3:29 p Patient Name: STEFANY RUBY Page [phone] at 1715 All edits/amendments must be made on the electronic document DICTATION DATE: 03/13/201714 SNACK STEWARDESS: ELLA 03/13/201714 RPT#: [id number] DC DATE: STATUS: ADM IN [facility] [address] [place] [address] END OF REPORT
--- NOTE | 2020-03-13 18:53 | NUR ---
HAS BEEN WITHOUT DISTRESS TODAY, BUT CONFUSION AT TIMES. I HAVE WRAPPED LEF T SSTUMP MULTIPLE TIMES. I PUT AN EGGCRATE MATRESS ON BED.WITHOUTT CHANGE. CONT PLAN OF CARE
[2020-03-13 20:00] VITALS: BP 117/63
[2020-03-14 05:23] LABS: HEMOGLOBIN 8.1 g/dL (12-16); MCH 29.3 pg (26.0-34.0); MCHC 32.4 g/dL (31.0-37.0); MCV 90.6 fL (80.0-100.0); MEAN PLATELET VOLUME 9.3 fL (7.4-10.4); PLATELET COUNT 797 10x3/uL (130-400); RBC 2.76 10x6/uL (4.00-5.40); RDW 14.5 % (11.5-14.5); WBC 17.3 10x3/uL (4.8-10.8)
[2020-03-14 05:41] LABS: ALBUMIN 2.1 g/dL (3.4-5.0); ANION GAP 13.5 mmol/L (8-16); BILIRUBIN - TOTAL 0.8 mg/dL (0.2-1.3); CALCIUM 8.4 mg/dL (8.5-10.1); CARBON DIOXIDE 25.2 mmol/L (21.0-32.0); MAGNESIUM - SERUM 2.1 mg/dL (1.8-2.4); PHOSPHOROUS 3.4 mg/dL (2.5-4.9)
[2020-03-14 05:42] LABS: POTASSIUM - SERUM 3.7 mmol/L (3.5-5.1)
[2020-03-14 06:22] LABS: LYMPHOCYTES 19 % (15-50); NEUTROPHILS 80 % (40-80); PLATELET ESTIMATE INCREASED
[2020-03-14 06:23] LABS: TARGET CELLS OCC
[2020-03-14 08:51] VITALS: BP 124/47
--- NOTE | 2020-03-14 09:44 | NUR ---
PT ALERT AND ORIENTED TO SELF UPON ENTERING. ASSISTED PT GETTING SITUATED IN BED. ADMINISTERED MEDICATION, NO DIFFICULTIES. ASSESSMENT PERFORMED AT THIS TIME. DENIES ANY NEEDS. BED IN LOWEST POSITION, BED RAILS X2 CALL LIGHT WITHIN REACH. WILL CONTINUE TO MONITOR.
--- NOTE | 2020-03-14 12:17 | NUR ---
PLACE NITRO PATCH. ASSESSED BLOOD SUGAR. ADMINISTERED 10 UNITS PER SLIDING SCLAE FOR SUGAR OF 267. PT RESTING IN BED. DENIES ANY NEEDS. WILL CONTINUE TO MONITOR.
[2020-03-14 14:02] VITALS: BP 135/63
--- NOTE | 2020-03-14 14:23 | NUR ---
I have reviewed this patient and I concur with the Shift Assessment completed by the Licensed Practical Nurse today this shift.
--- NOTE | 2020-03-14 15:56 | NUR ---
GAVE PT A BED BATH.
--- NOTE | 2020-03-14 17:01 | NUR ---
HUNG IV ABX, AND GAVE PO. ASSESSED BLOOD SUGAR, 167. ADMINISTERED 4 UNITS INSULIN PER SLIDING SCALE. RESTING COMFORTABLY IN BED. DENIES ANY NEEDS. WILL CONTINUE TO MONITOR.
[2020-03-14 17:09] VITALS: BP 133/53
[2020-03-14 22:23] VITALS: BP 118/62
[2020-03-14 23:57] LABS: BILIRUBIN NEGATIVE (NEGATIVE); GLUCOSE NEGATIVE (NEGATIVE); KETONE NEGATIVE (NEGATIVE); NITRITE NEGATIVE (NEGATIVE); UROBILINOGEN NORMAL (NORMAL)
--- NOTE | 2020-03-15 01:46 | NUR ---
PT HAS REMOVED THE DRESSING AND STOCKING TO HER LEFT BKA MULTIPLE TIMES THROUGH THE NIGHT. I EXPLAINED TO HER THE IMPORTANCE OF KEEPING THEM ON AND KEEPING HER HANDS OF HER INCISION. SHE REPORTS THAT SHE MUST BE DOING IT WHILE SHE SLEEPS. REPLACED 4X4'S AND A NEW STOCKING. BED IS LOW AND CALL LIGHT IS WITHIN REACH.
[2020-03-15 04:00] VITALS: BP 137/57
--- NOTE | 2020-03-15 05:00 | NUR ---
PT CONTINUES TO YELL NURSE INSTEAD OF PRESSING CALL LIGHT. WHEN I GO IN SHE IS SCRATCHING HER INCISION TO HER LEFT LEG AND THE DRESSING IS OFF. REPLACED THE DRESSING AND STOCKING AND REMINDED PT THE IMPORTANCE OF KEEPING THE STOCKING ON AND HER HANDS AWAY FROM HER INCISION. SHE VERBALIZED UNDERSTANDING. SHE IS RESTLESS, PULLING AT HER CATHETER WELL. SHE IS ORIENTED X 4 BUT FORGETFUL. VALIUM ADMINISTERED FOR ANXIETY/AGITATION. BED LOW AND CALL LIGHT IS WITHIN REACH.
--- NOTE | 2020-03-15 06:55 | NUR ---
CONFUSED AT TIMES. NO C/O PAIN. NO S/S OF ACUTE DISTRESS NOTED. BEDREST. 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 DRESSING TO LEFT BKA C/D/I. LOCKHART CATHETER IN PLACE. WOUND VAC TO LEFT GROIN. ON EGG CRATE MATTRESS. MIDLINE TO LEFT UPPER ARM, SL. SITE PATENT WITHOUT REDNESS OR SWELLING. DENIES ANY NEEDS AT THIS TIME. CALL LIGHT IN REACH. WILL CONTINUE TO MONITOR.
[2020-03-15 09:24] VITALS: BP 119/56
--- NOTE | 2020-03-15 11:38 | NUR ---
REHAB PRESCREENING Rehab referral received and chart reviewed. This patients insurance provider requires a prior authorization to receive rehab benefits. We will begin preuath tomorrow and notify case management of their decision. Thank you for this referral! Serena De La Fuente, HOROLOGIST Rehab PD
--- NOTE | 2020-03-15 11:46 | NUR ---
REHAB PRESCREENING As previously noted this patient will required a prior authorization. PT would need to restart with a new evaluation as they signed off the patient to nursing. Thank you for this referral! Serena De La Fuente, CALCINER FEEDER Rehab PD
[2020-03-15 12:27] LABS: HEMATOCRIT 25.2 % (36.0-48.0); HEMOGLOBIN 8.2 g/dL (12-16); LYMPHOCYTES 17.7 % (15-50); MCH 30.1 pg (26.0-34.0); MCHC 32.5 g/dL (31.0-37.0); MCV 92.6 fL (80.0-100.0); MEAN PLATELET VOLUME 8.8 fL (7.4-10.4); NEUTROPHILS 73.9 % (40-80); PLATELET COUNT 832 10x3/uL (130-400); RBC 2.72 10x6/uL (4.00-5.40); RDW 15.5 % (11.5-14.5); WBC 17.6 10x3/uL (4.8-10.8)
[2020-03-15 12:39] LABS: ANION GAP 9.6 mmol/L (8-16); BILIRUBIN - TOTAL 0.81 mg/dL (0.2-1.3); CALCIUM 8.3 mg/dL (8.5-10.1); POTASSIUM - SERUM 3.6 mmol/L (3.5-5.1); PROTEIN - SERUM 6.9 g/dL (6.4-8.2)
[2020-03-15 12:54] VITALS: BP 132/44
--- NOTE | 2020-03-15 16:42 | NUR ---
I have reviewed this patient and I concur with the Shift Assessment completed by the Licensed Practical Nurse today this shift.
[2020-03-15 17:45] VITALS: BP 136/50
--- NOTE | 2020-03-15 18:14 | NUR ---
RESTING IN BED WITH EYES CLOSED. RESPIRATIONS EVEN AND UNLABORED. NO S/S OF ACUTE DISTRESS NOTED. CALL LIGHT IN REACH. WILL CONTINUE TO MONITOR.
[2020-03-15 20:00] VITALS: BP 151/57
--- NOTE | 2020-03-15 20:50 | NUR ---
MEDICATED WITH [facility] FOR C/O PAIN IN LT LEG. DSRG NOTED TO LT STUMP IS C/D/I. WOUND VAC NOTED TO LT GROIN WITH BLOODY DRAINAGE IN CANISTER. ORIENTED TO SELF AND PLACE. CONFUSED. RESP EVEN AND NONLABORED. LOCKHART CATH PATENT AND DRAINING ORANGE URINE. LT UPPER ARM MIDLINE IS SALINE LOCKED. SR ELEVATED X2. CL IN REACH. IRRITABLE AND ANXIOUS. FAMILY AT BEDSIDE.
--- NOTE | 2020-03-15 22:05 | NUR ---
MEDICATED WITH [facility]IUM FOR ANXIETY PER REQUEST. CL IN REACH. BED ALARM ON
--- NOTE | 2020-03-16 00:17 | NUR ---
MEDICATED WITH [facility]CO AND [facility] FOR C/O LEG PAIN. CL IN REACH.
--- NOTE | 2020-03-16 02:05 | NUR ---
C/O INSOMNIA. DISCOURAGED DAYTIME NAPPING. SHE VERBALIZED UNDERSTANDING
[2020-03-16 04:00] VITALS: BP 141/60
--- NOTE | 2020-03-16 05:00 | NUR ---
REQUESTED NIALLCO BUT WHEN ARRIVED IN ROOM PT WAS SLEEPING. ASKED PT IF SHE STILL WANTED IT AND SHE STATED NO. KATHRYN RETURNED TO [facility]. HAS BEEN UP ALL NIGHT AND NOW IS RESTING.
[2020-03-16 05:53] LABS: HEMATOCRIT 25.1 % (36.0-48.0); MCH 29.2 pg (26.0-34.0); MCHC 31.9 g/dL (31.0-37.0); MCV 91.6 fL (80.0-100.0); MEAN PLATELET VOLUME 9.4 fL (7.4-10.4); PLATELET COUNT 822 10x3/uL (130-400); RBC 2.74 10x6/uL (4.00-5.40); RDW 15.8 % (11.5-14.5); WBC 14.9 10x3/uL (4.8-10.8)
[2020-03-16 05:58] LABS: ALBUMIN 1.9 g/dL (3.4-5.0); ANION GAP 10.1 mmol/L (8-16); BILIRUBIN - TOTAL 0.5 mg/dL (0.2-1.3); CALCIUM 8.2 mg/dL (8.5-10.1); CARBON DIOXIDE 27.3 mmol/L (21.0-32.0); CREATININE - SERUM 1.1 mg/dL (0.6-1.3); POTASSIUM - SERUM 3.4 mmol/L (3.5-5.1); PROTEIN - SERUM 6.8 g/dL (6.4-8.2)
[2020-03-16 09:08] VITALS: BP 138/58
--- NOTE | 2020-03-16 11:31 | NUR ---
I have reviewed this patient and I concur with the Shift Assessment completed by the Licensed Practical Nurse today this shift.
[2020-03-16 13:06] VITALS: BP 151/67
--- NOTE | 2020-03-16 13:23 | NUR ---
PT WAS MEDICATED WITH NORCO AND VISTARIL AT THIS TIME FOR C/O LEFT LEG PAIN. C/L IN REACH AT BEDSIDE.
[2020-03-16 14:34] LABS: EOSINOPHILS 1 % (0-7); LYMPHOCYTES 22 % (15-50); MONOCYTES 12 % (2-11); NEUTROPHILS 65 % (40-80); PLATELET ESTIMATE INCREASED; ROULEAUX OCC
[2020-03-16 18:04] VITALS: BP 124/59
[2020-03-16 20:00] VITALS: BP 137/65
--- NOTE | 2020-03-16 21:00 | NUR ---
PT STATES SHE IS EXTREMELY NERVOUS, CANNOT GET COMFORTABLE. TURNED TO RIGHT SIDE. INFORMED PT OF WOUND VAC EXCHANGE IN AM. CONSENTS SIGNED. ENTERED ROOM, INFORMED OF WOUNDVAC EXCHANGE IN AM. CTM.
[2020-03-17] VITALS (14 sets, daily range): BP systolic 107–144; BP diastolic 52–78
--- NOTE | 2020-03-17 02:16 | NUR ---
LARGE BLOODCLOTS SEEPING OUT FROM UNDER WOUND VAC. UNABLE TO REAPPLY WOUND VAC. CAMPBELL AND BREVING NOTIFIED. PRESSURE DRESSED AND SANDBAG APPLIED PER TELEPHONE ORDER. STAT H&H PENDING. VS STABLE AND DOCUMENTED. MONITOR CLOSELY.
[2020-03-17 02:21] LABS: HEMATOCRIT 22.6 % (36.0-48.0)
[2020-03-17 02:23] LABS: HEMOGLOBIN 7.2 g/dL (12-16)
[2020-03-17 02:40] LABS: ALBUMIN 1.8 g/dL (3.4-5.0); ANION GAP 9.5 mmol/L (8-16); BILIRUBIN - TOTAL 0.51 mg/dL (0.2-1.3); CALCIUM 7.8 mg/dL (8.5-10.1); CARBON DIOXIDE 27.4 mmol/L (21.0-32.0); CREATININE - SERUM 1.3 mg/dL (0.6-1.3); MAGNESIUM - SERUM 2.1 mg/dL (1.8-2.4); PHOSPHOROUS 4.3 mg/dL (2.5-4.9); POTASSIUM - SERUM 3.9 mmol/L (3.5-5.1); PROTEIN - SERUM 6.4 g/dL (6.4-8.2)
--- NOTE | 2020-03-17 03:46 | NUR ---
LAB CALLED. REPORTED PT BLOOD IS SHOWING NEW ANTIBODIES THAT WERE NOT PRESENT BEFORE. TECH STATES SHE IS NOT COMFORTABLE RELEASING BLOOD AND IS WAITING FOR NEXT SKIN TOGGLER TO SHOW UP(APPROXIMATELY 2HRS).
--- NOTE | 2020-03-17 04:34 | NUR ---
PT REFUSING TO KEEP SANDBAG ON GROIN WOUND. REPORTS DISCOMFORT. INFORMED OF INPORTANCE TO STOP BLEEDING SEVERAL TIMES. MONITORING CLOSELY.
[2020-03-17 05:40] LABS: HEMATOCRIT 20.5 % (36.0-48.0)
[2020-03-17 05:43] LABS: HEMOGLOBIN 6.5 g/dL (12-16)
--- NOTE | 2020-03-17 06:03 | NUR ---
CALLED TO BE NOTIFIED OF PTs CONDITION POST RAPID/NOTIFIED OF INFUSION OF BLOOD. NO ANSWER. [place] OF [place] NOTIFIED(BEN-DAUGHTER). DAUGHTER STATES SHE WILL BE AT HOSPITAL THIS MORNING. CTM.
--- NOTE | 2020-03-17 07:19 | NUR ---
20 gauge iv started in the left forearm x 1 stick, +blood retrun, flushes without difficulty secured with tegaderm and blood restarted on pump at 150 cc/hr. patient's nurse Rosi at bedside
--- NOTE | 2020-03-17 08:03 | NUR ---
WALKED IN THIS AM TO PATIENT MIDLINE HALWAY PULLED OUT. UNIT BLOOD TRANSFUSING STOPPED AND IV SITED TO RFA. UNIT BLOOD CONTINUED. VITALS STABLE. PATIENT TAKEN FOR STAT CT AND NURSE WENT WITH PATIENT D/T BLOOD TRANSFUSING. DRSG TO LEFT GROIN REMOVED AND NEW DRSG APPLIED BY DR LANE IN CT ROOM. SAND BAG TO AREA. PATIENT BACK IN ROOM NOW AND SLEEPING. VITALS STABLE. WILL START SECOND UNIT BLOOD.
--- NOTE | 2020-03-17 08:14 | NUR ---
VITALS STABLE. BLOOD TRANSFUSION UNIT 2 INITATED. WILL CONTINUE MONITORING.
--- NOTE | 2020-03-17 08:16 | NUR ---
ALERT AND ORIENTED TO SELF. LUNGS CLEAR BILATERALLY. HEART SOUNDS S1 AND S2 HEARD IN ALL VERDUZCO. BOWEL SOUNDS ACTIVE X 4. DRSG TO LEFT GROIN C/D/I. BED LOW. BED ALARM ON. CALL COTTRELL AND PERSONAL ITEMS IN REACH. WILL CONTINUE TO MONITOR.
--- NOTE | 2020-03-17 10:15 | NUR ---
BLOOD TRANSFUSION UNIT 2 COMPLETE. VITALS STABLE. SPOKE WITH LUANA VASCULAR ACCESS WHO STATES OK TO GO AHEAD AND REMOVE MIDLINE AND THAT WE DO NOT REINSERT MIDLINES. WILL REMOVE.
--- NOTE | 2020-03-17 10:46 | NUR ---
DAUGHTER, VITO, CALLED AND MADE AWARE OF SITUATION. DENIES FURTHER NEEDS. REQUESTED NURSE CALL IF FIND OUT ANY NEW INFO.
--- NOTE | 2020-03-17 11:14 | NUR ---
WALKED IN ROOM TO PATIENT COVERED IN BLOOD AT HIP AND LAP AREA. RAP RESPONSE CALLED. PRESSURE APPLIED TO WOUND TO STOP BLEEDING. SECOND RN IN ROOM HOLDING. PRESSURE. JOAN SOTO IN ROOM. DR LANE IN ROOM TAKING TO OR STAT. DAUGHTER VITO NOTIFIED AND ON WAY TO HOSPITAL.
--- NOTE | 2020-03-17 11:48 | NUR ---
SPOKE WITH LUIS FELIPE IN ICU WHO STATES WILL CALL MS WHEN READY FOR REPORT.
--- NOTE | 2020-03-17 13:35 | NUR ---
1311 - PT ARRIVES TO ICU WITH ART LINE AND CVP LINE
--- NOTE | 2020-03-17 13:40 | NUR ---
1340 RECEIVED REPORT FROM Gavin ABERNATHY RN TO ASSUME PHASE I PAC CARE
--- NOTE | 2020-03-17 15:00 | NUR ---
PC FROM DAUGHTER, STATUS UPDATED POST SURGERY, WILL COME FOR 1600 VISITATION, NO OTHER NEEDS AT THIS TIME
--- NOTE | 2020-03-17 19:50 | NUR ---
ASSESSMENT PER FLOW SHEET, VS CONTINUE, LEFT SUBCLAVIAN INTACT WITH NO REDNESS OR EDEMA INFUSING PLASMALYTE PUMP AT 20ML/HR, SALINE LOCK IN RIGHT FA INTACT WITH NO REDNESS OR EDEMA, ART LINE TO RIGHT WRIST INTACT, ZERO'D OUT PER BABS ELENA RN, WRIST PROTECTOR OVER ART LINE, PT RESTRAINED TO KEEP FROM PULLING LINES OUT, LEFT GROIN INC WITH WOUND VAC AND EDUARDO DRAIN IN PLACE, DRESSING CDI, LOCKHART CATH IN PLACE DRAINING DARK YELLOW URINE, DRESSING TO LEFT KNEE INTACT, PT REPOSITIONED IN BED PER REQUEST, PT DENIES FURTHER NEEDS, BED IN LOW POSITION, SIDE RAILS X 2, CALL LIGHT IN REACH
--- NOTE | 2020-03-17 20:35 | NUR ---
ADM INSULIN PER MD ORDERS, SEE EMAR
--- NOTE | 2020-03-17 21:19 | NUR ---
PT AWAKE, MOVING AROUND IN BED, SLIGHTLY AGITATED, ADM 2100 MEDS AND PAIN MED PER MD ORDERS, SEE EMAR, WILL ADM VALIUM, THIS RN AND BABS ELENA RN REPOSITIONED PT PER REQUEST
--- NOTE | 2020-03-17 21:42 | NUR ---
ADM VALIUM PO PER MD ORDERS, SEE EMAR
--- NOTE | 2020-03-17 22:02 | NUR ---
PT REPOSITIONED AGAIN PER REQUEST, BED IN LOW POSITION, SIDE RAILS X 2, CALL LIGHT IN REACH
--- NOTE | 2020-03-17 23:00 | NUR ---
PT RESTING WITH EYES CLOSED, RESP QUIET, NO DISTRESS NOTED, LEFT UNDISTURBED AT THIS TIME
[2020-03-18] VITALS (21 sets, daily range): BP systolic 82–149; BP diastolic 55–88
--- NOTE | 2020-03-18 00:26 | NUR ---
BLOOD SUGAR PERFORMED WITH RESULT BEING 185. SHE RECEIVED 4 UNITS OF INSULIN. SEE EMAR. PT WAS REPOSITIONSED TO HER RIGHT SIDE. SHE STATES SHE IS COMFORTABLE AND WILL TRY TO GO TO SLEEP.
--- NOTE | 2020-03-18 01:42 | NUR ---
PT AWAKE, REPORTS ANXIETY, REQUESTS VALIUM, INFORMED PT THAT SHE COULD NOT HAVE IT UNTIL 9AM, PT REQUESTS TO "HAVE SOMETHING", ADM VISTARIL PO PER MD ORDERS, SEE EMAR, REPOSITIONED PT TO RIGHT SIDE, PILLOWS IN PLACE FOR COMFORT AND SUPPORT, PT DENIES FURTHER NEEDS, BED IN LOW POSITION, SIDE RAILS X 2, CALL LIGHT IN REACH
--- NOTE | 2020-03-18 03:15 | NUR ---
PT RESTING WITH EYES CLOSED, RESP QUIET, NO DISTRESS NOTE, LEFT UNDISTURBED AT THIS TIME
--- NOTE | 2020-03-18 04:20 | NUR ---
SUBCLAVIAN PORT CONVERTED TO IV, NS HUNG VIA PUMP FOR PRIMARY TO INFUSE ROCEPHIN IVPB PER MD ORDERS, SEE EMAR, ADM PAIN MED PO PER MD ORDERS, SEE EMAR, EMPTIED LOCKHART AND EDUARDO DRAIN, PUMPS CLEARED, PT REPOSITIONED IN BED PER REQUEST, RESTRAINTS REMOVED FOR A SHORT TIME
--- NOTE | 2020-03-18 04:31 | NUR ---
OBTAINED FSBS, RESTRAINTS BACK ON
[2020-03-18 04:53] LABS: HEMATOCRIT 27.5 % (36.0-48.0); HEMOGLOBIN 9.4 g/dL (12-16); MCH 29.9 pg (26.0-34.0); MCHC 34.2 g/dL (31.0-37.0); MCV 87.6 fL (80.0-100.0); MEAN PLATELET VOLUME 9.1 fL (7.4-10.4); PLATELET COUNT 518 10x3/uL (130-400); RBC 3.14 10x6/uL (4.00-5.40); RDW 17.1 % (11.5-14.5); WBC 21.2 10x3/uL (4.8-10.8)
[2020-03-18 04:58] LABS: ALBUMIN 1.8 g/dL (3.4-5.0); BILIRUBIN - TOTAL 0.79 mg/dL (0.2-1.3); CALCIUM 7.8 mg/dL (8.5-10.1); CARBON DIOXIDE 27.9 mmol/L (21.0-32.0); CREATININE - SERUM 1.4 mg/dL (0.6-1.3); MAGNESIUM - SERUM 2.4 mg/dL (1.8-2.4); PHOSPHOROUS 3.6 mg/dL (2.5-4.9); POTASSIUM - SERUM 3.9 mmol/L (3.5-5.1); PROTEIN - SERUM 5.8 g/dL (6.4-8.2)
--- NOTE | 2020-03-18 05:24 | NUR ---
PT RESTING WITH EYES CLOSED, RESP QUIET, NO DISTRESS NOTED, LEFT UNDISTURBED AT THIS TIME
--- NOTE | 2020-03-18 06:00 | NUR ---
PHARMACY NOTIFIED FOR PROTONIX
--- NOTE | 2020-03-18 07:00 | NUR ---
REC'D REPORT AND RESUMED CARE, AWAKE AND CONFUSED, VSS, O2 VIA RA, LEFT SC WITH NS AT 30 CC/HR, CVP CONNECTED, READING 10, RIGHT RADIAL IBAN DAMPENED, NOT READING CORRECTLY, ABDOMINAL WOUND VAC IN PLACE AND SECURED, EDUARDO WITH MINIMAL BLOODY DRAINAGE, LOCKHART TO GRAVITY WITH MEGHAN DRAINAGE, B/L BKA NOTED, C/O PHATOM PAIN AND JUST UNCOMFORTABLE, REPOSITIONED, UP AND TO LEFT SIDE PER REQUEST, ASSESSMENT COMPLETED PER FLOWSHEET, CALL LIGHT IN REACH
--- NOTE | 2020-03-18 08:02 | NUR ---
DR LANE HERE FOR EVAL, ORDER GIVEN TO REMOVE IBAN
[2020-03-18 08:47] LABS: LYMPHOCYTES 19 % (15-50); MONOCYTES 4 % (2-11); NEUTROPHILS 74 % (40-80); PLATELET ESTIMATE INCREASED
--- NOTE | 2020-03-18 10:44 | NUR ---
Nutrition follow-up: Diet: Clear liquids Labs reviewed WT: 209# Labs reviewed Wound VAC to groin Recommend nutrition support start if diet unable to advance past clear liquids RDN following.
--- NOTE | 2020-03-18 14:59 | NUR ---
C/O PAIN IN BACK AND LEG, RESTLESS AND AGITATED, PRN PAIN AND ANXIETY MEDS GIVEN PER MAR FLOWSHEET, PAIN 05/14, CHG BATH GIVEN, TOLERATED WIHOUT DIFFICULTY
--- NOTE | 2020-03-18 17:17 | NUR ---
NEW ORDER GIVEN BY CHARLES DE LEON APN FOR BENADRYL 25 MG X1 FOR CHRONIC ITCHING
--- NOTE | 2020-03-18 18:39 | NUR ---
REPOSITIONED UP FOR LATE DINNER TRAY, ASSIST WITH SET UP AND INDPENDENT WITH EATING
--- NOTE | 2020-03-18 21:20 | NUR ---
P[T REPORT RECIEVED FROM ANALY. PT A/O X4 RR EVEN AND UNLABORED. PT VERY RESTLESS AND UNABLE TO GET COMFORTABLE. PT REPOSITIONED SEVERAL TIMES. PRN PAIN MEDICATION GIVEN. NO ACUTE S/S OF DISTRESS AT THIS TIME. VITALS STABLE. CALL LIGHT WITHIN REACH. WILL CONTINUE TO MONITOR.
--- NOTE | 2020-03-18 22:15 | NUR ---
PT RESTING COMFORTABLY AT THIS TIME WITH EYES CLOSED. RR EVEN AND UNLABORED. NO S/S OF DISTRESS AT THIS TIME. VITALS STABLE. BP 120/66 VITALS STABLE. BED LOW CALL LIGHT WITHIN REACH. WILL CONTINUE TO MONITOR.
--- NOTE | 2020-03-18 23:30 | NUR ---
PT RESTING COMFORTABLY WITH EYES CLOSED RR EVEN AND UNLABORED. NO S/S OF DISTRESS. PT VITALS STABLE. BED LOW CALL LIGHR WITHIN REACH. WILL CONTINUE TO MONITOR.
[2020-03-19] VITALS (20 sets, daily range): BP systolic 107–176; BP diastolic 43–109
--- NOTE | 2020-03-19 01:27 | NUR ---
CHANGED PT'S LEFT BKA BANDAGE. REPOSITIONED PT IN BED. PT COMPLAINS OF 9/10 PAIN IN LEFT LEG "TOES." PRN PAIN MEDICATION GIVEN. VITALS STABLE AT THIS TIME. NO S/S OF DISTRESS. BED LOW CALL LIGHT WITHIN REACH. SIDE RAILS UP X2. WILL CONTINUE TO MONITOR.
[2020-03-19 04:16] LABS: HEMATOCRIT 27.3 % (36.0-48.0); LYMPHOCYTES 15.6 % (15-50); MCH 29.9 pg (26.0-34.0); MEAN PLATELET VOLUME 8.9 fL (7.4-10.4); NEUTROPHILS 78.6 % (40-80); PLATELET COUNT 498 10x3/uL (130-400); RBC 3.01 10x6/uL (4.00-5.40); RDW 16.2 % (11.5-14.5); WBC 17.6 10x3/uL (4.8-10.8)
[2020-03-19 04:24] LABS: MCV 90.7 fL (80.0-100.0)
[2020-03-19 04:32] LABS: ANION GAP 10.5 mmol/L (8-16); BILIRUBIN - TOTAL 0.71 mg/dL (0.2-1.3); CALCIUM 7.9 mg/dL (8.5-10.1); CARBON DIOXIDE 26.4 mmol/L (21.0-32.0); MAGNESIUM - SERUM 2.3 mg/dL (1.8-2.4); PHOSPHOROUS 3.7 mg/dL (2.5-4.9); POTASSIUM - SERUM 3.9 mmol/L (3.5-5.1); PROTEIN - SERUM 6.3 g/dL (6.4-8.2)
--- NOTE | 2020-03-19 06:55 | NUR ---
PT COMPLAINS OF PAIN 8/10 PAIN IN LEG. TO SOON FOR PRN PAIN MEDICATION.
--- NOTE | 2020-03-19 07:10 | NUR ---
REPORT RECEIVED FROM OFF GOING NURSE. PATIENT LAYING IN BED ON BACK ALERT AND ORIENTED X 4. PATIENT LAYING IN BED ON BACK. PATIENT REPOSITIONED TO RT SIDE FOR COMFORT. PATIENT DENIES ANY NEEDS OR PAIN. VSS. WILL CONTINUE WITH PLAN OF CARE. SR UP X 2 BED IN LOW POSITION AND CALL LIGHT IN REACH.
--- NOTE | 2020-03-19 08:00 | NUR ---
CALLED TO PATIENT ROOM. PATIENT MOVING AROUND IN BED STATING SHES SCARED AND WORRIED. SPENT SEVERAL MINUTES LISTENING TO PATIENT AND GIVING REASSURANCE. MEDICATED PATIENT WITH VALIUM AND ORDERED. PATIENT REPOSITONED. FAN ON. LIGHTS DIMMED. DVSS. WILL CONTINUE TO MONITOR. SR UP X 2 BED IN LOW POSITION AND CALL LIGHT IN REACH.
--- NOTE | 2020-03-19 10:57 | NUR ---
JPATIENT LAYING IN BED ON BACK WITH EYES CLOSED AND BREATHING EVENLY.VSS. SPOKE WT DTR ELMER. WCTM. ALL SAFETY MEASURE IN PLACE.
--- NOTE | 2020-03-19 12:30 | NUR ---
PATIENT REPOSITIONED FOR COMFORT. PATIENT CONSUMED 50% OF MEAL. WILL CONTINUE TO MONITOR. ALL SAFETY MEASURES IN PLACE.
--- NOTE | 2020-03-19 14:20 | NUR ---
PATIENT YELLING FROM ROOM. UPON ENTERING ROOM PATIENT IS VISIBLY AGITATED, ROCKING IN BED AND PULLING ON LOCKHART AND ATTEMPTING TO PULL CVL LINE. PATIENT IS ASKING FOR SOMEONE TO TAKE HER SHOES OFF. SPENT SEVERAL MINUTES ATTEMPTING TO CALM PATIENT, REDIRECT. UNSUCCESSFUL. VO FROM DR DRAPER WRIST RESTRAINTS RECIEVED. PATIENT PLACED IN WRIST RESTRAINTS. PILLOWS PLACED FOR COMFORT. VISTARIL GIVEN PER NOV. PATIENT IS LAYING QUIETLY. VSS. WILL CONTINUE TO MONITOR. SR UP X 2 BED IN LOW POSITION AND CALL LIGHT IN REACH.
--- NOTE | 2020-03-19 15:17 | NUR ---
PATIENT RESTING QUIETLY WITH EYES CLOSED AND BREATHING EVENLY. WRIST RESTRAINTS IN PLACE.
--- NOTE | 2020-03-19 16:45 | NUR ---
PATIENT YELLING FROM ROOM. ENTERING ROOM PATIENT TRYING TO GET OUT OF BED DESPITE WRIST RESTRAINTS. PATIENT YELLING" I NEED TO GO HOME TO MY PARENTS HOUSE. GET MY SHOES ON. " SPENT MORE THAN 15 MINUTES WITH PATIENT ATTEMPTING TO CALM, REORIENTATE AND DISTRACT. UNSUCCESSFUL. AGITATION WORSENING. MEDICATED PATIENT PER NOV WITH GEODON 10 MG IN AND VISTARIL PO. VSS. WCTM.
--- NOTE | 2020-03-19 17:45 | NUR ---
PATIENT LAYING IN BED ON BACK WITH EYES CLOSED AND BREATHING EVENLY. VSS. WCTM. WRIST RESTRAINTS IN PLACE AND ALL SAFETY PRECAUTIONS IN PLACE.
--- NOTE | 2020-03-19 19:00 | NUR ---
ASSESSMENT COMPLETED. SEE FLOWSHEETS FOR ALL FINDINGS. PT AWAKE AND RESTLESS IN BED, REORIENTED WITHOUT RESULTS. ST ON CM WITH HR TO 110BPM. CONT IN USE SOFT WRIST RESTRAINTS FOR PT'S SAFETY. CALL LIGHT IN REACH. CONT TO MONITOR.
--- NOTE | 2020-03-19 21:00 | NUR ---
PT'S VISITING. UPDATED AND QUESTIONS ANSWERED.
--- NOTE | 2020-03-19 23:00 | NUR ---
REASSESSMENT COMPLETED. SEE FLOWSHEETS FOR ALL FINDINGS. PT RESTING QUIETLY WITHOUT DISTRESS. VSS. NO ACUTE CHANGES NOTED IN PTS STATUS AT THIS TIME. CPOC.
[2020-03-20] VITALS (24 sets, daily range): BP systolic 111–169; BP diastolic 52–98
--- NOTE | 2020-03-20 01:00 | NUR ---
PT SCREAMING OUT LOUD, AND PULLING ARMS AGAINS RESTRAINTS. UNABLE TO CALM DOWN. GEODAN 10MG IM GIVEN PER ORDER. WILL CONT TO MONITOR.
--- NOTE | 2020-03-20 04:15 | NUR ---
I&O COMPLETED TO CHART WITHOUT DIFFIC.
--- NOTE | 2020-03-20 04:30 | NUR ---
pt has been unable to sleep, states her is having an ablation on his heart today and is concerned, vitals stable
[2020-03-20 05:05] LABS: LYMPHOCYTES 16.4 % (15-50); MCH 29.9 pg (26.0-34.0); MCHC 32.1 g/dL (31.0-37.0); MEAN PLATELET VOLUME 8.9 fL (7.4-10.4); NEUTROPHILS 76.2 % (40-80); PLATELET COUNT 490 10x3/uL (130-400); RBC 3.01 10x6/uL (4.00-5.40); RDW 16.3 % (11.5-14.5); WBC 13.9 10x3/uL (4.8-10.8)
[2020-03-20 05:29] LABS: ALBUMIN 1.9 g/dL (3.4-5.0); ANION GAP 9.9 mmol/L (8-16); BILIRUBIN - TOTAL 0.53 mg/dL (0.2-1.3); MAGNESIUM - SERUM 2.3 mg/dL (1.8-2.4); POTASSIUM - SERUM 3.9 mmol/L (3.5-5.1); PROTEIN - SERUM 6.4 g/dL (6.4-8.2)
--- NOTE | 2020-03-20 07:10 | NUR ---
REPORT RECEIVED FROM OFF GOING NURSE AND PATIENT CARE ASSUMED. PATIENT LAYING IN BED ON BACK WITH EYES CLOSED AND BREATHING EVENLY. WRIST RESTRAINTS IN TACT. VSS. LOCKHART IN PLACE. WILL CONTINUE WITH PLAN OF CARE.. SR UP X 2 BED IN LOW POSITION AND CALL LIGHT IN REACH.
--- NOTE | 2020-03-20 08:00 | NUR ---
Nutrition follow-up: Diet: ADA PO intake 50% of most meals Labs reviewed; glucose fair to good control Wt: 203# Pt aggitated, screaming at times RDN following.
--- NOTE | 2020-03-20 08:23 | NUR ---
PATIENT CONTINUES WITH EYES CLOSED AND BREATHING EVENLY. ASSESSMENT COMPLETED. TM.
--- NOTE | 2020-03-20 11:00 | NUR ---
DR BARLOW DISCUSSES WITH PATIENT WILL DO BRONCH WITH BS NEXTT WEEK. AFTER MUCH DISCUSSION WITH DR BARLOW AND DR CHOWDARY, PATIENT AND FAMILY DECLINE LUNG BX, TREATMENT AND REQUEST TO GO HOME ON HOSPICE CARE. FAMILY REQUEST [facility]. NOTIFIED ANTONIO RALPH WITH CM . REASSESMENT COMPLETED. WCTM. ALL SAFETY MEASURES IN PLACE.
--- NOTE | 2020-03-20 11:00 | NUR ---
REASSESSMENT COMPLETED.
--- NOTE | 2020-03-20 11:51 | OP ---
PATIENT NAME: STEFANY RUBY I MEDICAL RECORD: [id number] :60 LOCATION:D.[facility] D.[id number] ADMISSION DATE:02/28/20 SURGEON: PETROS LANE MD DATE OF OPERATION: 03/17/2020 PREOPERATIVE DIAGNOSES: 1. Acute blood loss anemia. 2. Postoperative bleeding from femoral endarterectomy site. 3. Peripheral vascular disease. 4. Coronary artery disease. 5. Diabetes mellitus. 6. Hypertension. 7. Hyperlipidemia. 8. Open wound to the left groin from postoperative wound dehiscence. POSTOPERATIVE DIAGNOSES: 1. Acute blood loss anemia. 2. Postoperative bleeding from femoral endarterectomy site. 3. Peripheral vascular disease. 4. Coronary artery disease. 5. Diabetes mellitus. 6. Hypertension. 7. Hyperlipidemia. 8. Open wound to the left groin from postoperative wound dehiscence. PROCEDURES: 1. Left groin exploration with oversewing of left femoral endarterectomy bleeding site. 2. Wound VAC placement. SURGEON: Petros Lane MD REPORT OF PROCEDURE: The patient's left groin was prepped and draped in sterile fashion. All appliances were removed from the patient's left groin. We began a tedious dissection through some blood clot that was present. As we began removing this, we worked our way on to the vessel and I could see the patch from the previous endarterectomy site. This patch appeared to be intact and I never encountered any evidence of any purulent or infected material. There was no signs of any necrotic changes. As we extended superiorly towards the upper aspect of the old incision, I did encounter an area of arterial brisk bleeding from the superior and medial aspect of the patch placed for the femoral endarterectomy. I was able to dissect a little more superiorly by opening up the skin and subcutaneous fat and the overlying musculature. Once I did this, then I was able to apply pressure to the proximal aspect of the femoral artery with doing this, it discontinued any bleeding. I was then able to use a 7-0 Prolene to sew up the area of bleeding in the femoral patch to the femoral arterial vessel. At the conclusion of this, we had good brisk flow through the vessel with no sign of any active bleeding. The remainder of the patch appeared to be in good condition with no signs of any necrotic changes. We irrigated out the wound and I manipulated the tissues for quite a while afterwards to see if there would be any further bleeding, which there was none. After we cleaned out the blood clots that were present, then we irrigated out the wound one last time with normal saline and assured there was no sign of any active surgical bleeding. I then placed a 15-Greek round drain through the lateral aspect of the patient's thigh and into the pocket overlying the patient's femoral artery. OPERATIVE REPORT [id number] STEFANY RUBY I This was sutured into place with a 3-0 nylon. I then reapproximated the subcutaneous tissues and fascia overlying the groin wound using multiple interrupted 3-0 Vicryls. This reapproximated the tissue well. I then applied a wound VAC with a black sponge into the open wound as we applied suction to this, we had a good seal of the tissues. The drain had a good seal and we were able to get a negative pressure from it as well. There was no sign of any active bleeding at the conclusion of the case and the patient was stable throughout. COMPLICATIONS: None. CONDITION: Stable. ANESTHESIA: General endotracheal. BLOOD LOSS: 100 mL. TRANSINT:[id number] Voice Confirmation ID: [id number] DOCUMENT ID: [id number] PETROS LANE MD at 1151 CC: NOMAN CROOKS [id number] DICTATION DATE: 03/17/20 1302 SHOE MAKER: 03/17/20 1358 ADM IN [facility] [address] [place] [address]
--- NOTE | 2020-03-20 12:30 | NUR ---
DR DRAPER IN ROOM. NEW ORDERS RECEVED. VSS. TM.
--- NOTE | 2020-03-20 12:45 | NUR ---
DR DRAPER IN ROOM. AWARE OF HOSPICE REQUEST. DC TO HOME ON HOSPICE ORDER PLACED WELL HOSPICE CONSULT.
--- NOTE | 2020-03-20 15:00 | NUR ---
REASSESSMENT COMPLETED. PATIENT IS LAYING IN BED ON BACK WITH EYES CLOSED AND BREATHING EVENLY. WCTM. VSS.
--- NOTE | 2020-03-20 15:00 | NUR ---
REASSESMENT COMPLETED. PATIENT IS STABLE AND VSS.
--- NOTE | 2020-03-20 15:30 | NUR ---
PATIENT IS STABLE AND VSS. PATIENT TO MRI VIA STRETCHER ACCOMPANIEDBY MRI STAFF.
--- NOTE | 2020-03-20 16:00 | NUR ---
PATEINT RETURNED FROM MRI. TRANSFERRED TO BED WITHOUT DIFFICULTY . PATIENT IS STABLE AND VSS. COMPLETED HIBICLEANS BATH AND COMPLETE LINEN CHANGE. ORAL CARE PERFORMED. PATIENT THANKS THIS NURSE FOR CARE. WCTM. ALL SAFETY MEASURES IN PLACE.
--- NOTE | 2020-03-20 17:50 | NUR ---
DTR AT BS. LOREE RN WITH CM, CALLED STATED THAT [facility] HAS APPROVED. DME WILL BE DELIVERED TO HOME IN 2 - 3 HOURS. PATIENT TO BE DCD WHEN HOSPICE NOTIFIES OUR UNIT THAT HOME IS READY. PATIENT TO BE TRANSPORTED VIA AMBULANCE.
--- NOTE | 2020-03-20 18:10 | NUR ---
PATIENT LAYING IN BED ON BACK WITH EYES CLOSED AND BREATHING EVENLY. WCTM. ALL SAFETY MEASURES IN PLACE.
[2020-03-20 18:30] LABS: BACTERIA FEW /hpf (NEGATIVE); BILIRUBIN NEGATIVE (NEGATIVE); GLUCOSE NEGATIVE (NEGATIVE); KETONE NEGATIVE (NEGATIVE); NITRITE NEGATIVE (NEGATIVE); RED CELLS - URINE OCC /hpf (0-5); UROBILINOGEN NORMAL (NORMAL); WHITE CELLS - URINE 0-5 /hpf (NEGATIVE)
[2020-03-21] VITALS (14 sets, daily range): BP systolic 111–158; BP diastolic 47–97
--- NOTE | 2020-03-21 00:03 | NUR ---
1899- ASSESSMENT COMPLETED. EYES WERE CLOSED, EASILY WAKES TO SPEECH. CONFUSION NOTED. ASSISTED WITH REPOSITIONING. 2099- CONFUSION CONT. AT BEDSIDE. ASSISTED WITH REPOSITIONING SEVERAL TIMES. PATIENT STATES SHE CAN'T GET COMFORTABLE. 2299- REASSESSMENT COMPLETED. PATIENT AWAKE, CONFUSED. C/O OF NOT BEING ABLE TO SLEEP AND NOT GETTING COMFORTABLE. REPOSITIONED PATIENT SEVERAL TIMES BUT PATIENT BEGAN TO YELL OUT.
--- NOTE | 2020-03-21 01:59 | NUR ---
0100- REPOSITIONED. NO CHANGES
--- NOTE | 2020-03-21 05:28 | NUR ---
0300-REASSESSMENT COMPLETED. REPOSITIONED. 0500- REPOSITIONED. NO CHANGES. VSS
[2020-03-21 07:21] LABS: MAGNESIUM - SERUM 2.1 mg/dL (1.8-2.4); PHOSPHOROUS 3.7 mg/dL (2.5-4.9)
--- NOTE | 2020-03-21 09:01 | NUR ---
0700 REPORT RECIEVED AND CARE ASSUMED OF PATIENT SEE FLOW SHEET FOR SHIFT ASSESMENT 0800 PT IS SLEEPING AT THIS TIME.. REPORT STATED THAT PATIENT DID NOT SLEEP WELL IN THE NIGHT .. ALKLOWED TO REMAIN SLEEPING AT THIS TIME..
[2020-03-21 10:13] LABS: BASOPHILS 0.1 % (0-2); EOSINOPHILS 0.7 % (0-7); HEMATOCRIT 27.1 % (36.0-48.0); HEMOGLOBIN 8.6 g/dL (12-16); IMMATURE GRANULOCYTES 0.2 % (0-5); LYMPHOCYTES 15.3 % (15-50); MCH 29.5 pg (26.0-34.0); MCHC 31.7 g/dL (31.0-37.0); MCV 92.8 fL (80.0-100.0); MEAN PLATELET VOLUME 9.6 fL (7.4-10.4); MONOCYTES 8.3 % (2-11); NEUTROPHILS 75.4 % (40-80); PLATELET COUNT 470 10x3/uL (130-400); RBC 2.92 10x6/uL (4.00-5.40); RDW 15.6 % (11.5-14.5); WBC 13.4 10x3/uL (4.8-10.8)
[2020-03-21 10:30] LABS: ALBUMIN 1.9 g/dL (3.4-5.0); BILIRUBIN - TOTAL 0.45 mg/dL (0.2-1.3); CALCIUM 8.6 mg/dL (8.5-10.1); CARBON DIOXIDE 23.7 mmol/L (21.0-32.0); POTASSIUM - SERUM 3.7 mmol/L (3.5-5.1); PROTEIN - SERUM 6.5 g/dL (6.4-8.2)
--- NOTE | 2020-03-21 10:49 | NUR ---
0930 PT AWAKE AND BREAKFAST SERVED FEEDING SELF.. 0945 AM MEDS GIVEN.. PARTIAL ABTH AND LINEN CHANGE DONE 1015 REPOSITIONED.. 1030REQUEST PAIN MEDS.. GIVEN.. NEW LOCKHART BAG TO CATHETER.. OLD BAG IS WITH A BROKEN HOOK 1045 WEDGE PILLOWS USED TO REPOSITION FOR COMFORT
--- NOTE | 2020-03-21 13:16 | NUR ---
1130 DR DRAPER IN TO SEE PATIENT.. UPDATE GIVEN AND ORDER TO TRANSFER TO FLOOR RECIEVED.. 1200 LUNCH SERVED AND FSBS DONE WITH INSULIN COVER.. 1300 WITHOUT CHANGES ..
--- NOTE | 2020-03-21 15:02 | NUR ---
1400 PARTIAL BATH GIVEN... WITH LINEN CHANGE ...DAUGHTER At BEDSIDE.. 1430 GEODAN GIVEN IM PER EMAR.. PT IS RESTLESS AND UNCOMFORTABLE... 1500 APPEARS TO BE SLEEPING AT THIS TIME..
--- NOTE | 2020-03-21 16:05 | NUR ---
PT STATES SHE IS UNCOMFORTABLE. TURNED PT ON HER LEFT SIDE AND PLACED A PILLOW BEHIND HER BACK. PT STATES SHE AHS NO FURHTER NEEDS AT THIS TIME. BED LOW. CL IN REACH. DAUGHTER AT BEDSIDE.
--- NOTE | 2020-03-21 16:42 | NUR ---
REPORT CALLED TO OMAR RAY 2133... DAUGHTER AT BEDSIDE..
--- NOTE | 2020-03-21 19:21 | NUR ---
RECIEVED UP IN BED WITH EYES OPEN AND TV ON. ALERT AND ORIENTED X4. LISA BKA. LT STUMP HAS A DRESSING. CDI. LT CHEST CVL WITH PROCAL AT 30CC/HR. F/C INTACT WITH STRAW COLOR URINE IN BEDSIDE DRAINAGE BAG. ROOM HAS PUNGENT ODOR. MEPLEX TO BUTTOCK INTACT. EDUARDO DRAIN IN PLACE WITH DARK BROWN DRAINAGE IN BULB. DENIES ANY NEEDS AT THIS TIME.
[2020-03-22 00:45] VITALS: BP 127/52
[2020-03-22 04:24] VITALS: BP 156/66
[2020-03-22 08:45] VITALS: BP 137/53
[2020-03-22 12:07] VITALS: BP 119/47
--- NOTE | 2020-03-22 19:22 | NUR ---
RECIEVED UP IN BED WITH EYES OPEN AND TV ON. ALERT AND ORIETNED X4. REMAINS ON BEDREST. BILATERAL BKA. LT BKA HAS DSG THAT IS CDI. EDUARDO DRAIN IN PLACE WITH DARK BROWN FLUID IN IT. IV TO LT CVL WITH PROCAL AT 30CC/HR. MEPELEX TO BUTTOCKS. DENIES ANY NEEDS AT THIS TIME.
[2020-03-22 20:30] VITALS: BP 141/52
--- NOTE | 2020-03-22 22:11 | NUR ---
FSBS 517. GAVE LANTUS AND ORDERED LAB PER PROTOCOL. WILL HOLD S/S PRICILA ORTEGA NOTIFIED OF RESULTS. PT STATES SHE HAS BEEN EATING CANDY AND SHE DOES THIS ALL THE TIME.
[2020-03-23 06:28] LABS: ANION GAP 10.2 mmol/L (8-16); CALCIUM 8.6 mg/dL (8.5-10.1); CARBON DIOXIDE 26.6 mmol/L (21.0-32.0); CREATININE - SERUM 0.9 mg/dL (0.6-1.3); MAGNESIUM - SERUM 2.3 mg/dL (1.8-2.4); PHOSPHOROUS 3.6 mg/dL (2.5-4.9); POTASSIUM - SERUM 3.8 mmol/L (3.5-5.1)
[2020-03-23 06:50] LABS: BASOPHILS 0.3 % (0-2); EOSINOPHILS 1.8 % (0-7); HEMATOCRIT 28.4 % (36.0-48.0); HEMOGLOBIN 9.2 g/dL (12-16); IMMATURE GRANULOCYTES 0.2 % (0-5); LYMPHOCYTES 18.3 % (15-50); MCH 29.2 pg (26.0-34.0); MCHC 32.4 g/dL (31.0-37.0); MEAN PLATELET VOLUME 9.5 fL (7.4-10.4); MONOCYTES 10.3 % (2-11); NEUTROPHILS 69.1 % (40-80); PLATELET COUNT 501 10x3/uL (130-400); RBC 3.15 10x6/uL (4.00-5.40); RDW 14.8 % (11.5-14.5); WBC 11.5 10x3/uL (4.8-10.8)
[2020-03-23 07:01] LABS: MCV 90.2 fL (80.0-100.0)
--- NOTE | 2020-03-23 09:16 | NUR ---
PT WANTING NORCO FOR PAIN. STATED THIS TO ROSELYN COLVIN AND SHE VERBALIZED UNDERSTANDING.
[2020-03-23 09:32] VITALS: BP 141/68
--- NOTE | 2020-03-23 12:00 | NUR ---
PT'S DAUGHTER BEN CALLED AND WANTED UPDATE. GAVE HER UPDATE AND READ HER DOCTORS NOTE FROM YESTERDAY. SHE STATES PT NEEDS TO GO TO REHAB AND NOT HOME HEALTH BECAUSE SHE WILL NOT BE ABLE TO RECEIVE HELP AT HOME 27/03 AND [facility] W[facility]T BE THERE CONSTANTLY. I VERBALIZED UNDERSTANDING. SHE STATES SHE WILL SPEAK WITH PT ABOUT GOING TO REHAB AND NOT GOING HOME ON HOME HEALTH AND SHE [facility] [place] [facility]. GAVE HER PRESS SET UP EXT.
[2020-03-23 13:40] VITALS: BP 142/75
--- NOTE | 2020-03-23 15:11 | NUR ---
LEFT BKA CLEANSED WITH WOUND CLEANSER AND 4X4 AND USED BETADINE AROUND INCISONAL WITH SUTURES AND COVERED WITH LONG MEPILEX. LEFT UPPER LEG WOUND VAC CHANGED. PT TOLERATED WELL. LEFT LEG EDUARDO DRAIN AND ABDOMINAL FOLD IS ODOROUS. OPEN WOUND AND STUMP INCISIONAL IS NOT ODOROUS. CALLED ROSELYN FRANCO AND STATED THIS TO HER AND SHE VERBALIZED UNDERSTANDING.
--- NOTE | 2020-03-23 18:41 | NUR ---
CALLED LAB ABOUT PTT AND THEY STATED THE GIRL USED THE WRONG TUBE SO SOMEONE IS COMING TO RESTICK. I VERBALIZED UNDERSTANDING.
--- NOTE | 2020-03-23 19:00 | NUR ---
EVENING ROUNDS COMPLETE. PT LAYING IN BED. NO SIGNS OF DISTRESS. PT DENIES ANY NEEDS AT THIS TIME. AAOX4. CL IN REACH, BED IN LOWEST POSITION.
[2020-03-23 21:32] VITALS: BP 92/70
[2020-03-24 00:30] VITALS: BP 137/47
[2020-03-24 04:00] VITALS: BP 130/64
[2020-03-24 06:30] LABS: ANION GAP 10.6 mmol/L (8-16); CALCIUM 8.8 mg/dL (8.5-10.1); CARBON DIOXIDE 27.3 mmol/L (21.0-32.0); MAGNESIUM - SERUM 2.2 mg/dL (1.8-2.4); PHOSPHOROUS 4.1 mg/dL (2.5-4.9); POTASSIUM - SERUM 3.9 mmol/L (3.5-5.1)
[2020-03-24 07:05] LABS: BASOPHILS 0.2 % (0-2); EOSINOPHILS 2.3 % (0-7); HEMATOCRIT 28.5 % (36.0-48.0); IMMATURE GRANULOCYTES 0.3 % (0-5); LYMPHOCYTES 17.1 % (15-50); MCH 28.8 pg (26.0-34.0); MCHC 31.6 g/dL (31.0-37.0); MCV 91.3 fL (80.0-100.0); MEAN PLATELET VOLUME 10.1 fL (7.4-10.4); MONOCYTES 7.6 % (2-11); NEUTROPHILS 72.5 % (40-80); PLATELET COUNT 448 10x3/uL (130-400); RBC 3.12 10x6/uL (4.00-5.40); RDW 15.2 % (11.5-14.5); WBC 12.4 10x3/uL (4.8-10.8)
--- NOTE | 2020-03-24 07:30 | NUR ---
PT SITTING UP IN BED, RR EVEN AND UNLABORED ON RA. REPOSITIONED TO COMFORT. DENIES FURTHER NEEDS OR PAIN AT THIS TIME. CALL LIGHT WITHIN REACH. BED IN LOWEST POSITION. WILL CONTINUE TO MONITOR. 0830- PT REQUESTED ANXIETY MEDICATION. RECIEVED PER ORDERS. DENIES FURTHER NEEDS AT THIS TIME.
[2020-03-24 09:28] VITALS: BP 136/80
[2020-03-24 12:09] VITALS: BP 146/62
--- NOTE | 2020-03-24 13:11 | NUR ---
Nutrition Follow-up: Diet: Diabetic PO intake: 50-100% x last 2 meals; she reports a good appetite. She likes Glucerna but doesn't like the vanilla flavor. ProCalamine @ 30mL/hr = 176cal and 21gms protein Last BM: 03/22/20- per patient report WT: 210# (03/21/20); Admit wt: 218# (02/28/20) Meds noted: SSI, miralax, lantus. Labs noted: POC Glu 182(H) Skin: L groin wound with vac, L BKA Recommend continue current diet. Will request for chocolate flavored Glucerna. Will update diet with food preferences. RD following.
[2020-03-24 15:35] VITALS: BP 115/94
--- NOTE | 2020-03-24 16:47 | NUR ---
I have reviewed this patient and I concur with the Shift Assessment completed by the Licensed Practical Nurse today this shift.
[2020-03-24 22:31] VITALS: BP 157/89
[2020-03-25 01:54] VITALS: BP 144/57
[2020-03-25 06:39] LABS: BASOPHILS 0.2 % (0-2); EOSINOPHILS 1.5 % (0-7); HEMATOCRIT 28.4 % (36.0-48.0); HEMOGLOBIN 9.1 g/dL (12-16); IMMATURE GRANULOCYTES 0.2 % (0-5); LYMPHOCYTES 18.2 % (15-50); MCH 29.2 pg (26.0-34.0); MEAN PLATELET VOLUME 9.4 fL (7.4-10.4); MONOCYTES 7.6 % (2-11); NEUTROPHILS 72.3 % (40-80); RBC 3.12 10x6/uL (4.00-5.40); RDW 14.9 % (11.5-14.5); WBC 14.3 10x3/uL (4.8-10.8)
[2020-03-25 06:47] LABS: PLATELET COUNT 593 10x3/uL (130-400)
[2020-03-25 06:55] LABS: ANION GAP 11.3 mmol/L (8-16); CALCIUM 8.9 mg/dL (8.5-10.1); CARBON DIOXIDE 27.9 mmol/L (21.0-32.0); CREATININE - SERUM 0.9 mg/dL (0.6-1.3); MAGNESIUM - SERUM 2.2 mg/dL (1.8-2.4); PHOSPHOROUS 4.8 mg/dL (2.5-4.9); POTASSIUM - SERUM 4.2 mmol/L (3.5-5.1)
[2020-03-25 07:00] VITALS: BP 135/63
--- NOTE | 2020-03-25 07:22 | NUR ---
PT LAYING SUPINE, RR EVEN AND UNLABORED ON RA. DENIES NEEDS OR PAIN AT THIS TIME. CALL LIGHT WITHIN REACH. BED IN LOWEST POSITION. WILL CONTINUE TO MONITOR.
--- NOTE | 2020-03-25 08:24 | MORECARE ---
CASE MANAGEMENT DISCHARGE SUMMARY PATIENT: STEFANY RUBY I UNIT: [id number] ADM DATE: 02/28/20 AGE: 60 : 60 SEX: F ROOM/BED: D.1456 AUTHOR: JEAN CARLOS SMITH PHYSICIAN: REFERRING PHYSICIAN: CECILLE MCCALL MD DATE OF SERVICE: 03/25/20 Discharge Plan Patient Name: STEFANY RUBY Facility: [facility]:[place] : 1960 Planned Disposition: Anticipated Discharge Date: Discharge Date: Expected LOS: Initial Reviewer: [email or web address] Initial Review Date: 02/28/2020 Generated: 03/25/20 9:24 am Comments DCP- Discharge Planning Updated by [email or web address]: Cydney Arias on 03/25/20 7:[address] Patient Name: STEFANY RUBY Encounter No: [id number] : 1960 Primary Insurance: [facility] MEDICARE ADV Anticipated DC Date: Planned Disposition: External Planned Provider: : 03/23/20 Late entry DCP follow-up note: Mamie at [phone] (pt daughter) called CM to discuss DC plan. Daughter states she wants her mother to go to rehab because she is not able to accommodate her needs. CM read through the notes and states the patient has refused to go, and CM can not force the patient into rehab. Mamie states she is unable to get the patient up the stairs into her home. CM spoke with of other alternatives such as , and fci services. Pt daughter states she will peak with her other. CM states she will speak with her mother tomorrow about DC plan.Patient and family in agreement with discharge plan. No changes to plan. Case management will follow and assist as needed. 03/24/20 CM met with pt to discuss DC plan. Patient states she thought about IP rehab and is would like to go. EVANS signed for IP rehab at [facility]. Case management will follow and assist as needed. CM attempted o call Romelia at [phone] to DC pt choice for IP Rehab 03/25/20 CM called Romelia at [phone] and updated her on the DCP for IP rehab. Pt and daughter in agreement with DC plan. CM will continue to assist as needed. Cydney Hugo DCP- Discharge Planning Updated by [email or web address]: Jacki Karl on 03/13/20 3:[address] [facility] wound vac is approved and in materials when patient is ready for discharged it will need to be brought up to the floor serial # [id number] Earnestine with materials will have it on her desk with a copy of the assignment form DCP- Discharge Planning Updated by [id number]: Elke Whitney on 03/12/20 6:[address] Patient Name: STEFANY RUBY Admission Status: Elective Accout number: [id number] Admission Date: 02-28-2020 : 1960 Admission Diagnosis:NONTRAUMATIC ISCHEMIC INFARCTION OF MUSCLE, UNSP LOWER Attending: CECILLE MCCALL Current LOS: 13 Anticipated DC Date: Planned Disposition: Primary Insurance: [employer] ADV Discharge Planning Comments: I SPOKE WITH PATIENT TODAY AND SHE STATES SHE HAS WC BSC AND ALL OTHER EQUIPMENT SHE MAY NEED. SHE IS POD 1 AND NOT FEELING GOOD TODAY. AT TIME OF DC SHE SAID IF SHE NEEDS HH SHE WOULD LIKE [facility]. WE MAY NEED TO DISCUSS REHAB WITH HER WHEN SHE FEELS BETTER. SHE SAYS SHE LIVES AT HOME WITH HER . CM WILL FOLLOW AND ASSIST NEEDED. Vice President Fixed Income: Elke Whitney DCP- Discharge Planning Updated by [email or web address]: Elke Whitney on 03/12/20 1:[address] Patient Name: STEFANY RUBY Admission Status: Elective Accout number: [id number] Admission Date: 02-28-2020 : 1960 Admission Diagnosis:NONTRAUMATIC ISCHEMIC INFARCTION OF MUSCLE, UNSP LOWER Attending: CECILLE MCCALL Current LOS: 13 Anticipated DC Date: Planned Disposition: Primary Insurance: [employer]ARE ADV Discharge Planning Comments: FAX SENT TO [facility] FOR WOUND VAC. Vice President Fixed Income: Elke Whitney DCP- Discharge Planning Updated by [id number]: Rosey Huerta on 03/03/20 4:[address] Patient Name: STEFANY RUBY Admission Status: Elective Accout number: [id number] Admission Date: 02-28-2020 : 1960 Admission Diagnosis:NONTRAUMATIC ISCHEMIC INFARCTION OF MUSCLE, UNSP LOWER Attending: CECILLE MCCALL Current LOS: 4 Anticipated DC Date: Planned Disposition: Primary Insurance: [employer]ARE ADV Discharge Planning Comments: CM met with patient to complete initial dc planning assessment. CM educated patient on the CM role and verbal consent given by patient to complete assessment. Patient lives at home with family. Patient is independent. At discharge patient plans to return home and feels this is a safe discharge. CM discussed availability of home health, rehab services, and medical equipment. Patient states that she has all the DME that she needs. Patient will have family to transport home. Patient denied known discharge needs at this time. CM will continue to follow and will assist as needed with dc plans/needs. Vice President Fixed Income: Rosey Huerta DCPIA - Discharge Planning Initial Assessment Updated by [email or web address]: Rosey Huerta on 03/03/20 5:47 pm * Is the patient Alert and Oriented? Yes * How many steps to enter\exit or inside your home? 18 * PCP CAL * Pharmacy [facility] * Preadmission Environment Home with Family * ADLs Independent * Other Equipment WALKER, BSC, W/C, SC * List name and contact numbers for known caregivers / representatives who currently or will assist patient after discharge: DAFNE RUBY - [phone] * Verbal permission to speak to the caregivers and representatives has been obtained from the patient. Yes * Community resources currently utilized None * Additional services required to return to the preadmission environment? No * Can the patient safely return to the preadmission environment? Yes * Has this patient been hospitalized within the prior 30 days at any hospital? No Last DP export: 03/13/20 4:15 p Patient Name: STEFANY RUBY Page [id number] at 0824 All edits/amendments must be made on the electronic document DICTATION DATE: 03/25/20823 REGISTERED NURSE TEACHER: ELLA 03/25/20823 RPT#: [id number] DC DATE: STATUS: ADM IN [facility] [address] [place] [address] END OF REPORT
[2020-03-25 10:14] VITALS: BP 113/53
--- NOTE | 2020-03-25 15:14 | NUR ---
OT NOTE: PT COMPLETED SUPINE TO SIT WITH MAX A . PT COMPLETED SCOOTING TO EOB WITH MOD/MAX A. PT COMPLETED EOB SITTING BALANCE WITH CGA. PT COMPLETED FACE AND HAND HYGIENE WITH MIN A SECONDARY TO DECREASED SITTING BALANCE . PT EXHIBITED DECREASED ACTIVITY TOLERANCE. [phone] THANK YOU,JASON VELASQUEZ
--- NOTE | 2020-03-25 15:26 | NUR ---
WOUND VAC CHANGED. PT TOLERATED WELL. USED X2 PEICES OF FOAM.
--- NOTE | 2020-03-25 16:04 | NUR ---
OT NOTE: PRACTICED BED MOB WITH MOD ASSIST. PT NOW WITH TRAPEZE BAR THAT PROVIDES SOME ASSIST; PERFORMED SITTING BALANCE ACT WHILE ON EOB.. OCCASSIONAL ASSIST REQUIRED; AROM EXS WITH MIN/MOD REST BREAKS. PT PERFORMED WELL TODAY. CONT WITH CURRENT TMT PLAN RUI WILKINS, OTR/L [phone]
--- NOTE | 2020-03-25 18:13 | NUR ---
I have reviewed this patient and I concur with the Shift Assessment completed by the Licensed Practical Nurse today this shift.
[2020-03-26] VITALS: BP 122/58
[2020-03-26 04:00] VITALS: BP 131/59
[2020-03-26 06:01] LABS: BASOPHILS 0.2 % (0-2); EOSINOPHILS 1.3 % (0-7); HEMATOCRIT 28.6 % (36.0-48.0); HEMOGLOBIN 9.1 g/dL (12-16); IMMATURE GRANULOCYTES 0.1 % (0-5); LYMPHOCYTES 14.3 % (15-50); MCH 28.7 pg (26.0-34.0); MCHC 31.8 g/dL (31.0-37.0); MCV 90.2 fL (80.0-100.0); MEAN PLATELET VOLUME 9.2 fL (7.4-10.4); NEUTROPHILS 77.1 % (40-80); PLATELET COUNT 593 10x3/uL (130-400); RBC 3.17 10x6/uL (4.00-5.40); WBC 13.8 10x3/uL (4.8-10.8)
[2020-03-26 06:20] LABS: ANION GAP 10.2 mmol/L (8-16); CALCIUM 8.7 mg/dL (8.5-10.1); CARBON DIOXIDE 27.7 mmol/L (21.0-32.0); CREATININE - SERUM 1.1 mg/dL (0.6-1.3); MAGNESIUM - SERUM 2.2 mg/dL (1.8-2.4); PHOSPHOROUS 4.4 mg/dL (2.5-4.9); POTASSIUM - SERUM 3.9 mmol/L (3.5-5.1)
--- NOTE | 2020-03-26 07:20 | NUR ---
ENTERED PT ROOM, PT WOUND VAC BLEEDING, APPLIED PRESSURE PER TWO NURSES, REMOVED WOUND VAC, APPLIED SURGICAL FIBRILLAR AND 4X4, THEN APPLIED PRESSURE TAPE, BLEEDING HAS STOPPED, CALL DR LANE, WILL CHECK ON PT DURING ROUNDS 0950- GAVE PT MEDS, PLUS GAVE PAIN MEDS, DRESSING DRY AND INTACT [address] IN ROOM, LOOKED AT DRESSING AND VOICED TO LEAVE DRESSING ON FOR TWO DAYS AND WATCH IT 1425 PT LAYING IN BED NO NEEDS VOICED, DRESSING DRY AND SECURE, NO BLEEDING NOTED 1615 GAVE PT INSULIN, DRESSING DRY AND INTACT, SITE CLEAR 1650 ENTERED PT ROOM BLEEDING NOTED TO LEFT GROIN SITE, APPLIED PRESSURE WITH TWO OTHER NURSES, BLEEDING HAS NOT SLOWED DOWN, RAPID CALLED, APPLIED PRESSURE TO LEFT SURGICAL SITE TIL 1745, SURGERY NURSE RELIEVES US AND APPLIES KNEE PRESSURE TO TAKE PT TO OR, TRIED MULTIPLE TIMES TO GET AHOLD OF PT FAMILY
[2020-03-26 09:57] VITALS: BP 117/68
[2020-03-26 12:57] LABS: AMORPHOUS SEDIMENT <1+ /lpf (NONE SEEN); BACTERIA FEW /hpf (NEGATIVE); BILIRUBIN NEGATIVE (NEGATIVE); EPITHELIAL CELLS RARE /hpf (0-5); GLUCOSE NEGATIVE (NEGATIVE); KETONE NEGATIVE (NEGATIVE); NITRITE NEGATIVE (NEGATIVE); RED CELLS - URINE RARE /hpf (0-5); UROBILINOGEN NORMAL (NORMAL); WHITE CELLS - URINE RARE /hpf (NEGATIVE)
--- NOTE | 2020-03-26 14:15 | NUR ---
Nutrition Follow-up: Eating well overall. Denies N/V. Drinking 1 Glucerna/day. Receiving Procal @ 30. Noted possibility of BKA revision to AKA. Diet: Diabetic, Glucerna 1/day PO intake: 71% avg x 6 meals Wt: 210# (03/21) Last BM: 03/25 Labs noted: Na 130, Glu 187 Meds noted: Humalog, Lantus, Miralax, Colace, Protonix, electrolyte protocol -Encourage PO intake and honor food preferences within diet restrictions. -Monitor wt. -RD following.
[2020-03-26 15:06] VITALS: BP 116/61
--- NOTE | 2020-03-26 16:39 | NUR ---
OT NOTE: PT CLEARED BY NURSING TO PROCEED WITH THERAPY. PT COMPLETED SIDE ROLLING WITH MOD A AND SIDE RAIL. PT COMPLETED SUPINE TO SIT WITH MOD/MAX A. PT COMPLETED BUE AROM EXS TOLERATED. PT STATED SHE HAD A ROUGH MORNING AND NEEDED ANXIETY MEDICATION. NOTIFIED NURSING. [phone] THANK YOU,JASON VELASQUEZ
[2020-03-26 17:31] LABS: BASOPHILS 0.1 % (0-2); HEMATOCRIT 24.8 % (36.0-48.0); HEMOGLOBIN 7.8 g/dL (12-16); IMMATURE GRANULOCYTES 0.3 % (0-5); LYMPHOCYTES 13.8 % (15-50); MCH 28.5 pg (26.0-34.0); MCHC 31.5 g/dL (31.0-37.0); MCV 90.5 fL (80.0-100.0); MEAN PLATELET VOLUME 9.3 fL (7.4-10.4); MONOCYTES 7.2 % (2-11); NEUTROPHILS 77.6 % (40-80); PLATELET COUNT 560 10x3/uL (130-400); RBC 2.74 10x6/uL (4.00-5.40); RDW 15.1 % (11.5-14.5); WBC 15.2 10x3/uL (4.8-10.8)
[2020-03-26 19:51] LABS: HEMATOCRIT 23.4 % (36.0-48.0); HEMOGLOBIN 7.6 g/dL (12-16)
--- NOTE | 2020-03-26 20:35 | NUR ---
03/26/20202034 ARRIVED TO UNIT AT [address] L[address] TO REPAIR ERODED LEFT FEMORAL ARTERY. SHE HAS EDUARDO DRAIN ON LEFT LOWER ABDOMEN AND WOUND VAC DRESSING ON LEFT GROIN. SHE HAS A F/C. BILATERAL BKA'S NOTED WITH PAUL INTACT ON LEFT. BLACK NECROTIC SKIN IS NOTED ON LEFT BKA. SHE HAS A LEFT SUBCLAVIAN CVL. THE DRESSING HAS BEEN CHANGED. VS: 127/77 100% 114 97.7
[2020-03-26 22:00] VITALS: BP 136/57
[2020-03-26 23:00] VITALS: BP 168/75
[2020-03-27] VITALS (21 sets, daily range): BP systolic 94–168; BP diastolic 50–100
[2020-03-27 06:12] LABS: ANION GAP 9.6 mmol/L (8-16); CALCIUM 7.3 mg/dL (8.5-10.1); CARBON DIOXIDE 23.7 mmol/L (21.0-32.0); MAGNESIUM - SERUM 2.1 mg/dL (1.8-2.4); PHOSPHOROUS 3.4 mg/dL (2.5-4.9); POTASSIUM - SERUM 4.3 mmol/L (3.5-5.1)
[2020-03-27 06:20] LABS: HEMATOCRIT 27.4 % (36.0-48.0); HEMOGLOBIN 9.1 g/dL (12-16); MCH 29.7 pg (26.0-34.0); MCHC 33.2 g/dL (31.0-37.0); MCV 89.5 fL (80.0-100.0); MEAN PLATELET VOLUME 9.4 fL (7.4-10.4); PLATELET COUNT 385 10x3/uL (130-400); RBC 3.06 10x6/uL (4.00-5.40); WBC 22.2 10x3/uL (4.8-10.8)
[2020-03-27 06:43] LABS: LYMPHOCYTES 11 % (15-50); NEUTROPHILS 88 % (40-80); PLATELET ESTIMATE NORMAL
--- NOTE | 2020-03-27 08:19 | NUR ---
PT RESTING QUIETLY. VSS.
--- NOTE | 2020-03-27 09:33 | NUR ---
PT BATHED AND LINENS CHANGED.
--- NOTE | 2020-03-27 12:22 | NUR ---
pt c/o fantom pain. norco given.
--- NOTE | 2020-03-27 12:48 | NUR ---
DR LANE HERE ON ROUNDS.
--- NOTE | 2020-03-27 17:36 | NUR ---
pt repositioned in bed and pulled up. meal tray given and pt fed self approx 10%.
--- NOTE | 2020-03-27 20:00 | NUR ---
REPORT RECEIVED ASSESSMENT COMPLETE SEE FLOWSHEET. PT ALERT AND ORIENTED DENIES NEEDS AT THIS TIME. BED LOW POSITION SIDE RAILS UP TIMES 3 FOR BED MOBILITY AND SAFETY CL IN REACH. CM READING SR WITHOUT ECTOPY ALARMS ON AND AUDIBLE
--- NOTE | 2020-03-27 23:00 | NUR ---
REASSESSMENT COMPLETE NO CHANGES CPOC
[2020-03-28] VITALS (15 sets, daily range): BP systolic 101–139; BP diastolic 50–82
--- NOTE | 2020-03-28 00:50 | NUR ---
ANSWERED PTS CALL LIGHT SHE IS REQUESTING PAIN MED SEE EMAR. REPOSITIONED FOR COMFORT. CPOC
--- NOTE | 2020-03-28 06:44 | NUR ---
0300-REASSESSMENT. REPOSITIONED. 0500-REPOSITIONED. VSS
--- NOTE | 2020-03-28 08:43 | NUR ---
REPOSITIONED FOR BREAKFAST. PT ATE 50% OF MEAL. SM BM. AFTER BREAKFAST AND BATHED AND LINENS CHANGED.
--- NOTE | 2020-03-28 09:23 | NUR ---
JOAN ESCOBAR WITH DR TORRES GROUP HERE THIS AM ON ROUNDS.
[2020-03-28 09:42] LABS: BASOPHILS 0.1 % (0-2); EOSINOPHILS 0.7 % (0-7); HEMATOCRIT 27.2 % (36.0-48.0); HEMOGLOBIN 8.9 g/dL (12-16); IMMATURE GRANULOCYTES 0.5 % (0-5); LYMPHOCYTES 8.5 % (15-50); MCH 29.4 pg (26.0-34.0); MCHC 32.7 g/dL (31.0-37.0); MCV 89.8 fL (80.0-100.0); MEAN PLATELET VOLUME 9.3 fL (7.4-10.4); MONOCYTES 8.6 % (2-11); NEUTROPHILS 81.6 % (40-80); PLATELET COUNT 398 10x3/uL (130-400); RBC 3.03 10x6/uL (4.00-5.40); RDW 15.2 % (11.5-14.5)
[2020-03-28 09:53] LABS: ANION GAP 10.4 mmol/L (8-16); CALCIUM 7.8 mg/dL (8.5-10.1); CARBON DIOXIDE 27.4 mmol/L (21.0-32.0); POTASSIUM - SERUM 3.8 mmol/L (3.5-5.1)
--- NOTE | 2020-03-28 11:56 | NUR ---
DR BARONE HERE ON ROUNDS.
--- NOTE | 2020-03-28 19:10 | NUR ---
REPORT RECEIVED, PT CARE ASSUMED. INTRODUCED SELF AND WROTE NAME ON BOARD. PT LYING IN BED, WATCHING TV, AAOX4. DENIES ANY NEEDS AT THIS TIME. BED IN LOWEST, SR X3, CALL LIGHT WITHIN REACH. WILL CTM.
--- NOTE | 2020-03-29 00:15 | NUR ---
PT MAGISTRATE ASSISTANT LIGHT FOR REPOSITIONING, PROVIDED. DENIES ANY OTHER NEEDS AT THIS TIME. BED IN LOWEST, SRX3, CALL LIGHT WITHIN REACH. WILL CTM.
--- NOTE | 2020-03-29 02:16 | NUR ---
PT PACKAGING SALES CONSULTANT LIGHT FOR REPOSITIONING, PROVIDED. C/O PHANTOM PAIN OF AN 8, ON A SCALE OF 0-10, IN BOTH LEGS. REQUESTED PRN VISITARIL, ADMINISTERED PER ORDER. DENIES ANY OTHER NEEDS AT THIS TIME. BED IN LOWEST, SRX3, CALL LIGHT WITHIN REACH. WILL CTM.
--- NOTE | 2020-03-29 03:40 | NUR ---
PT QLIKVIEW DEVELOPER LIGHT, REQUESTING REPOSITIONING FOR COMFORT, PROVIDED. C/O PHANTOM PAIN OF 9, ON A SCALE OF 0-10, IN BOTH LEGS. STATES "THE NORCO 5 AND THE TYLENOL DON'T SEEM TO BE HELPING MUCH." DENIES ANY OTHER NEEDS AT THIS TIME. BED IN LOWEST, SR X3, CALL LIGHT WITHIN REACH. WILL CTM.
[2020-03-29 04:00] VITALS: BP 120/52
[2020-03-29 06:02] LABS: BASOPHILS 0.1 % (0-2); EOSINOPHILS 0.7 % (0-7); HEMATOCRIT 28.4 % (36.0-48.0); HEMOGLOBIN 9.2 g/dL (12-16); IMMATURE GRANULOCYTES 0.5 % (0-5); MCH 29.2 pg (26.0-34.0); MCHC 32.4 g/dL (31.0-37.0); MCV 90.2 fL (80.0-100.0); MEAN PLATELET VOLUME 9.4 fL (7.4-10.4); MONOCYTES 8.9 % (2-11); NEUTROPHILS 77.8 % (40-80); PLATELET COUNT 476 10x3/uL (130-400); RBC 3.15 10x6/uL (4.00-5.40); RDW 15.3 % (11.5-14.5); WBC 14.7 10x3/uL (4.8-10.8)
[2020-03-29 06:33] LABS: CALCIUM 8.5 mg/dL (8.5-10.1); CARBON DIOXIDE 26.5 mmol/L (21.0-32.0); CREATININE - SERUM 0.9 mg/dL (0.6-1.3); POTASSIUM - SERUM 3.5 mmol/L (3.5-5.1); VANCOMYCIN - TROUGH 14.1 ug/mL (10.0-20.0)
[2020-03-29 08:43] LABS: BASOPHILS 0.1 % (0-2); EOSINOPHILS 0.4 % (0-7); HEMATOCRIT 26.5 % (36.0-48.0); HEMOGLOBIN 8.6 g/dL (12-16); IMMATURE GRANULOCYTES 0.5 % (0-5); LYMPHOCYTES 14.2 % (15-50); MCH 29.3 pg (26.0-34.0); MCHC 32.5 g/dL (31.0-37.0); MCV 90.1 fL (80.0-100.0); MEAN PLATELET VOLUME 8.9 fL (7.4-10.4); MONOCYTES 8.2 % (2-11); NEUTROPHILS 76.6 % (40-80); PLATELET COUNT 439 10x3/uL (130-400); RBC 2.94 10x6/uL (4.00-5.40); RDW 15.4 % (11.5-14.5); WBC 16.9 10x3/uL (4.8-10.8)
[2020-03-29 08:50] LABS: ANION GAP 10.6 mmol/L (8-16); CALCIUM 8.3 mg/dL (8.5-10.1); CARBON DIOXIDE 27.8 mmol/L (21.0-32.0); POTASSIUM - SERUM 3.4 mmol/L (3.5-5.1)
[2020-03-29 09:24] VITALS: BP 120/66
[2020-03-29 12:00] VITALS: BP 134/56
[2020-03-29 16:00] VITALS: BP 136/56
--- NOTE | 2020-03-29 16:28 | NUR ---
EMPTIED 20ML OF SEROUSSANGINOUS FLUID OUT OF EDUARDO DRAIN. COMPRESSED BULB BACK INTO PLACE. FLUID CULTURE SENT OFF TO THE LAB.
[2020-03-29 21:17] VITALS: BP 166/67
[2020-03-30 00:39] VITALS: BP 149/65
[2020-03-30 04:19] VITALS: BP 137/74
[2020-03-30 06:04] LABS: BASOPHILS 0.1 % (0-2); EOSINOPHILS 0.3 % (0-7); HEMATOCRIT 26.9 % (36.0-48.0); HEMOGLOBIN 8.7 g/dL (12-16); IMMATURE GRANULOCYTES 0.3 % (0-5); LYMPHOCYTES 10.2 % (15-50); MCH 29.4 pg (26.0-34.0); MCHC 32.3 g/dL (31.0-37.0); MCV 90.9 fL (80.0-100.0); MEAN PLATELET VOLUME 9.3 fL (7.4-10.4); NEUTROPHILS 82.1 % (40-80); PLATELET COUNT 478 10x3/uL (130-400); RBC 2.96 10x6/uL (4.00-5.40); RDW 15.6 % (11.5-14.5); WBC 17.6 10x3/uL (4.8-10.8)
[2020-03-30 06:15] LABS: ANION GAP 11.6 mmol/L (8-16); CALCIUM 8.7 mg/dL (8.5-10.1); CARBON DIOXIDE 25.8 mmol/L (21.0-32.0); CREATININE - SERUM 0.9 mg/dL (0.6-1.3); POTASSIUM - SERUM 3.4 mmol/L (3.5-5.1)
--- NOTE | 2020-03-30 07:20 | NUR ---
RECIEVE REPORT. ALERT AND ORIENTED X4. CONSENTS FOR PROCEDURE SIGNED ON CHART. BATH AND LINEN CHANGE COMPLETE. WAITING FOR PROCEDURE. DENIES ANY OTHER NEEDS AT THIS TIME. CONTINUE PLAN OF CARE AND SAFETY PRECAUTIONS.
[2020-03-30 10:33] VITALS: BP 126/65
[2020-03-30 14:24] VITALS: BP 112/51
--- NOTE | 2020-03-30 16:00 | NUR ---
ALERT AND ORIENTED X4. SITTING UP IN BED. LT STUMP DRESSING CHANGE COMPLETE. INITIATE LOCKHART CARE. DENIES ANY NEEDS. CONTINUE PLAN OF CARE AND SAFETY PRECAUTIONS.
--- NOTE | 2020-03-30 19:00 | NUR ---
REPORT RECEIVED, WILL CONTINUE POC. PATIENT IS AAOX3, LYING ON LEFT SIDE. NO S/S OF DISTRESS OBSERVED, RR EVEN AND UNLABORED ON ROOM AIR. PATIENT DENIES NEEDS AT THIS TIME. EDUARDO DRAIN TO LT UPPER THIGH COMPRESSED, NO DRAINAGE OBSERVED. WOUND VAC TO LT GROIN, FUNCTIONING PROPERLY. CL IN REACH, BED LOCKED AND LOWERED. WILL CTM.
--- NOTE | 2020-03-30 19:45 | NUR ---
PATIENT IS LYING NAKE IN BED, PULLED OF LT SUBCLAVIAN CVL DRESSING. SHEETS OFF OF BED. PERFORMED COMPLETE BED CHANGED, CHANGED CVL DRESSING, RESPOSITIONED PATIENT.
[2020-03-30 20:29] VITALS: BP 147/63
[2020-03-31 00:33] VITALS: BP 144/62
--- NOTE | 2020-03-31 04:54 | NUR ---
I have reviewed this patient and I concur with the Shift Assessment completed by the Licensed Practical Nurse today this shift.
[2020-03-31 05:51] VITALS: BP 111/52
[2020-03-31 06:13] LABS: HEMATOCRIT 27.8 % (36.0-48.0); HEMOGLOBIN 8.7 g/dL (12-16); MCH 28.5 pg (26.0-34.0); MCHC 31.3 g/dL (31.0-37.0); MCV 91.1 fL (80.0-100.0); MEAN PLATELET VOLUME 9.2 fL (7.4-10.4); PLATELET COUNT 524 10x3/uL (130-400); RBC 3.05 10x6/uL (4.00-5.40); RDW 15.7 % (11.5-14.5); WBC 22.6 10x3/uL (4.8-10.8)
[2020-03-31 06:28] LABS: CALCIUM 8.4 mg/dL (8.5-10.1); CARBON DIOXIDE 28.6 mmol/L (21.0-32.0); CREATININE - SERUM 0.9 mg/dL (0.6-1.3); POTASSIUM - SERUM 3.6 mmol/L (3.5-5.1); VANCOMYCIN - TROUGH 14.9 ug/mL (10.0-20.0)
[2020-03-31 06:42] LABS: LYMPHOCYTES 12 % (15-50); MONOCYTES 11 % (2-11); NEUTROPHILS 74 % (40-80); PLATELET ESTIMATE INCREASED
[2020-03-31 09:24] VITALS: BP 108/51
--- NOTE | 2020-03-31 13:02 | NUR ---
Nutrition Follow-up: Pt reports appetite is ok but did not eat breakfast this AM stating that it was too salty. Drinking 2 Glucerna/day. Receiving Procal @ 30. Noted ortho planning AKA on . Diet: Diabetic, Glucerna daily PO intake: 54% avg x 6 meals (03/29-03/30) Wt: 212.7# (03/31); 210# (03/21) Last BM: 03/31 Labs noted: Na 135, Ca 8.4 Meds noted: Humalog, Lantus, Miralax, Colace -Encourage PO intake and honor food preferences within diet restrictions. -Monitor wt. -RD following.
[2020-03-31 13:06] VITALS: BP 115/42
--- NOTE | 2020-03-31 16:25 | NUR ---
OT NOTE: PT COMPLETED SIDE ROLLING WITH MOD A. PT COMPLETED BUE AROM EXS TOLERATED. PT COMPLETED LB HYGIENE WITH TOTAL A. [phone] THANK YOU,JASON VELASQUEZ
[2020-03-31 18:00] VITALS: BP 118/54
--- NOTE | 2020-03-31 19:00 | NUR ---
REPORT RECEIVED, WILL CONTINUE POC. PATIENT IS AAOX3, LYING ON LEFT SIDE, AT BEDSIDE. NO S/S OF DISTRESS OBSERVED, RR EVEN AND UNLABORED ON ROOM AIR. PATIENT IS REQUESTING A BATH A SOME POINT TONIGHT. INFORMED PATIENT SHE WILL BE GIVEN A BATH TONIGHT. PATIENT DENIES NEEDS AT THIS TIME. CL IN REACH, BED LOCKED AND LOWERED. WILL CTM.
[2020-03-31 20:00] VITALS: BP 123/42
--- NOTE | 2020-03-31 20:15 | NUR ---
ADMINISTERED HS MEDS, PATIENT TOLERATED WELL. FSBS 223, ADMINISTERED HUMALOG AND LANTUS PER ORDERS. PATIENT REQUESTING A BATH. INFORMED PATIENT SOON THE FIELD SERVICE POULTRY TECHNICIAN AND I GET A CHANCE WE WOULD BE GIVING HER A BATH. PATIENT STATES UNDERSTANDING. PATIENT HAS BEEN ON THE CALL LIGHT TWICE BEFORE TO REMIND STAFF TO GIVE HER A BATH TONIGHT.
--- NOTE | 2020-03-31 22:50 | NUR ---
ADMINISTERED PRN GEODON TO RT VENTROGLUTEAL SITE. BED BATH GIVEN, LINENS CHANGED, PATIENT REFUSED GOWN. LOCKHART CARE PROVIDED. REPOSITIONED PATIENT. PATIENT DENIES FURTHER NEEDS AT THIS TIME. CL IN REACH, BED LOCKED AND LOWERED. WILL CTM.
[2020-04-01] VITALS: BP 110/49
--- NOTE | 2020-04-01 | NUR ---
PATIENT REFUSING FSBS.
--- NOTE | 2020-04-01 03:20 | NUR ---
I have reviewed this patient and I concur with the Shift Assessment completed by the Licensed Practical Nurse today this shift.
[2020-04-01 04:00] VITALS: BP 132/56
[2020-04-01 09:02] LABS: HEMATOCRIT 26.9 % (36.0-48.0); HEMOGLOBIN 8.6 g/dL (12-16); MCH 28.9 pg (26.0-34.0); MCV 90.3 fL (80.0-100.0); PLATELET COUNT 493 10x3/uL (130-400); RBC 2.98 10x6/uL (4.00-5.40); RDW 15.6 % (11.5-14.5)
[2020-04-01 09:13] LABS: ANION GAP 9.3 mmol/L (8-16); CALCIUM 8.4 mg/dL (8.5-10.1); CARBON DIOXIDE 28.3 mmol/L (21.0-32.0); CREATININE - SERUM 0.9 mg/dL (0.6-1.3); POTASSIUM - SERUM 3.6 mmol/L (3.5-5.1)
[2020-04-01 09:19] LABS: LYMPHOCYTES 12 % (15-50); NEUTROPHILS 88 % (40-80)
[2020-04-01 09:20] LABS: PLATELET ESTIMATE INCREASED
[2020-04-01 09:56] VITALS: BP 128/54
--- NOTE | 2020-04-01 19:05 | NUR ---
REPORT RECEIVED, WILL CONTINUE POC. PATIENT IS AAOX4, LYING IN BED. NO S/S OF DISTRESS OBSERVED, RR EVEN AND UNLABORED ON ROOM AIR. REPOSITIONED PATIENT PER REQUEST. PATIENT DENIES FURTHER NEEDS AT THIS TIME. CL IN REACH, BED LOCKED AND LOWERED. AT BEDSIDE. WILL CTM.
[2020-04-02] VITALS: BP 129/52
--- NOTE | 2020-04-02 02:46 | NUR ---
I have reviewed this patient and I concur with the Shift Assessment completed by the Licensed Practical Nurse today this shift.
[2020-04-02 04:00] VITALS: BP 120/55
[2020-04-02 06:10] LABS: BASOPHILS 0.1 % (0-2); EOSINOPHILS 0.1 % (0-7); HEMATOCRIT 26.3 % (36.0-48.0); HEMOGLOBIN 8.3 g/dL (12-16); IMMATURE GRANULOCYTES 0.5 % (0-5); LYMPHOCYTES 10.5 % (15-50); MCH 28.3 pg (26.0-34.0); MCHC 31.6 g/dL (31.0-37.0); MCV 89.8 fL (80.0-100.0); MEAN PLATELET VOLUME 9.1 fL (7.4-10.4); NEUTROPHILS 80.8 % (40-80); PLATELET COUNT 559 10x3/uL (130-400); RBC 2.93 10x6/uL (4.00-5.40); RDW 15.7 % (11.5-14.5); WBC 20.6 10x3/uL (4.8-10.8)
[2020-04-02 06:23] LABS: ANION GAP 12.4 mmol/L (8-16); CALCIUM 8.3 mg/dL (8.5-10.1); CREATININE - SERUM 0.9 mg/dL (0.6-1.3); POTASSIUM - SERUM 3.4 mmol/L (3.5-5.1)
[2020-04-02 09:00] VITALS: BP 98/72
--- NOTE | 2020-04-02 14:10 | NUR ---
Nutrition Follow-up: NPO for Stephanie MARIELLA today. Wt: 212.7# (03/31) Last BM: 03/31 Labs noted: Na 132, K+ 3.4, Glu 143, Ca 8.3 Meds noted: Humalog, Lantus, Colace, electrolyte protocol, Procal @ 30 -Rec resume diet as tolerated following surgery. -Monitor wt; noted daily wts ordered. -RD following.
[2020-04-02 16:28] VITALS: BP 123/74
[2020-04-02 20:00] VITALS: BP 106/61
--- NOTE | 2020-04-02 20:00 | NUR ---
ALERT REPOSITIONED IN BED FOR COMFORT, C/O PAIN TO LEFT STUMP, REMINDED TO PUSH BUTTON ON NEWSPAPER INSERTER FOR PAIN MEDICINE, SEE SHIFT ASSESSMENT, CALL LIGHT IN REACH
[2020-04-03] VITALS: BP 125/61
[2020-04-03 04:00] VITALS: BP 125/58
[2020-04-03 06:19] LABS: ANION GAP 11.2 mmol/L (8-16); CALCIUM 8.3 mg/dL (8.5-10.1); CARBON DIOXIDE 26.9 mmol/L (21.0-32.0)
[2020-04-03 06:23] LABS: BASOPHILS 0.2 % (0-2); EOSINOPHILS 0.5 % (0-7); HEMATOCRIT 25.5 % (36.0-48.0); IMMATURE GRANULOCYTES 0.3 % (0-5); LYMPHOCYTES 14.6 % (15-50); MCH 28.4 pg (26.0-34.0); MCHC 31.4 g/dL (31.0-37.0); MCV 90.4 fL (80.0-100.0); MEAN PLATELET VOLUME 9.2 fL (7.4-10.4); MONOCYTES 7.3 % (2-11); NEUTROPHILS 77.1 % (40-80); PLATELET COUNT 572 10x3/uL (130-400); RBC 2.82 10x6/uL (4.00-5.40); RDW 16.1 % (11.5-14.5)
[2020-04-03 06:26] LABS: WBC 12.3 10x3/uL (4.8-10.8)
[2020-04-03 06:30] LABS: POTASSIUM - SERUM 4.1 mmol/L (3.5-5.1)
--- NOTE | 2020-04-03 08:05 | OP ---
PATIENT NAME: STEFANY RUBY I MEDICAL RECORD: [id number] :60 LOCATION:D.M2 D.2139 ADMISSION DATE:02/28/20 SURGEON: ANJELICA LAZAR MD DATE OF OPERATION: 04/02/2020 PREOPERATIVE DIAGNOSES: 1. Severe end-stage peripheral vascular disease of the left lower extremity. 2. Open groin wound of the left lower extremity, status post profundus bypass. POSTOPERATIVE DIAGNOSES: 1. Severe end-stage peripheral vascular disease of the left lower extremity. 2. Open groin wound of the left lower extremity, status post profundus bypass. PROCEDURES: 1. Left above-knee amputation. 2. Excisional debridement of left grown including skin, subcutaneous tissue, portions of fat and fascia. 3. Application of wound VAC. SURGEON: Anjelica Lazar MD CO-SURGEON: Bubba Lane MD ASSISTANTS: SLY Herrera FAS. INTRAOPERATIVE COMPLICATIONS: None. SUMMARY OF PATHOLOGIC FINDINGS: The patient had very good blood flow of the stump and the patient's previously placed profunda graft was very well covered with vascular tissue requiring a muscle flap into the groin not necessary. INDICATIONS: Ms. Ruby is a 60-year-old female with very severe peripheral vascular disease. She had had an atherectomy that became infected and at one point bled and she was brought to the operating room urgently. This was after a BKA done by Dr. Lane. Unfortunately, the BKA did not heal and became gangrenous and the decision was made to proceed with an AKA with both vascular surgery Dr. Lane an orthopedic surgery concomitantly operating. OPERATIVE SUMMARY IN DETAIL: After obtaining the appropriate preoperative orthopedic surgery consent as well as anesthetic consultation, evaluation and clearance, the patient was brought to the operating room and placed on the operating table in supine position. After adequate general laryngeal mask airway was administered, the patient's left residual lower extremity was prepped and draped in a wet prep Betadine fashion. At this point, the appropriate timeout was taken and agreed upon by all given the patient's unique identifiers. Attention was first turned to the groin. Dilute hydrogen peroxide was used to copiously irrigate the wound as well as excisional debridement curettage any nonviable appearing tissue. The patient's previously placed drain was left in place and after good irrigation was done, this was covered and attention was turned to the AKA. Planned fishmouth incision was drawn. The incision was taken down across the quad and into the medial aspect. The patient's femoral artery was clamped, cut and high ligated. The stent was noticed. Good seal of the patient's femoral artery was completed. Please note, the saphenous was also clamped, cut, and high ligated. Peroneal division as well as the sciatic division nerves were also clamped, cut, and high ligated and allowed to retract. OPERATIVE REPORT [id number] STEFANY RUBY I Good viable tissue was seen in all planes. The femoral corticotomy was done with the power saw. Having completed this, copious irrigation was then followed by closure of the wound by both SLY Herrera and DAIANA Clay using #1 Vicryl, 2-0 Vicryl and skin finn. Having completed this, a wound VAC was applied to the groin at 125 mm medium intensity with continuous suction. Please note that the patient's bypass graft was covered with soft tissue at the time of closure. Having completed this, the patient was awakened and taken to recovery room in stable condition. All final needle and sponge counts were correct. ESTIMATED BLOOD LOSS: Approximately 100 cc. TRANSINT:[id number] Voice Confirmation ID: [id number] DOCUMENT ID: [id number] NAGI ORTEGA, ANJELICA FELDMAN at 0805 CC: BUBBA LANE [id number] DICTATION DATE: 04/02/20 1324 BODY JOINER: 04/02/20 1500 ADM IN [facility] [address] [place] [address]
[2020-04-03 09:00] VITALS: BP 121/66
[2020-04-03 12:45] VITALS: BP 126/61
--- NOTE | 2020-04-03 13:12 | NUR ---
Rehab Note- PreAuth attempted to initiate new PreAuth at this time with Mary Jane on behalf of [facility], called verified benefits have no noted expiration at this time per [employer] request. [employer] unable to initiate PreAuth at this time due to system and [facility] benefits renewal of , shows expiration of their benefits of 04/03/2020. Anuja with Mary Jane stated to go ahead & faxed in clinicals with cover sheet stating "Pending renewal & will renew on 04/04/2020 for [facility] policy" and that they will hold and begin PreAuth process when benefits renew in their system. Will fax clinicals at this time. Thank you for this referral! Janny Paredes RN Clinical Liaison, [facility]
--- NOTE | 2020-04-03 14:27 | NUR ---
OT NOTE: PT WITH RECENT L AKA YESTERDAY. RESUMPTION OF THERAPY TODAY. PT REPORTS PAIN IS NOT SEVERE PREVIOUSLY. REPORTS THAT SHE IS ITCHING "ALL OVER"..NURSING NOTIFIED. PT ABLE TO PERFORM BED MOB WITH MIN/MOD ASSIST FOR ROLLING SIDE TO SIDE; LONG SITTING WITH MIN ASSIST; MOD ASSIST WITH STATIC SITTING ON EOB. WILL CONT WITH BED MOB; SITTING BALANCE TRAINING, ADL TRAINING, TRUNK AND UE STRENGTHENING. RUI WILKINS, OTR/L [phone]
--- NOTE | 2020-04-03 14:38 | NUR ---
PATIENT BATCH OPERATOR LIGHT COMPLAINING OF ITCHING. PATIENT BACKSIDE ASSESSED. NO SIGNS OF REDNESS OR RASH. WILL CONTINUE TO MONITOR. BED LOW POSITION. CALL LIGHT IN REACH, FILING AND POLISHING SUPERVISOR IN REACH. DENIES PAIN OR ANY FURTHER NEEDS.
[2020-04-03 15:51] VITALS: BP 125/66
--- NOTE | 2020-04-03 17:20 | NUR ---
PATIENT IN BED, RESTING. DENIES PAIN AND OTHER NEEDS. WILL CONTINUE TO MONITOR.
--- NOTE | 2020-04-03 19:30 | NUR ---
REPORT RECEIVED AND ROUNDING COMPLETE. PATIENT LAYING IN BED IN LOW FOWLERS, PATIENT STATES THAT THE [facility] DOES NOTHING TO HELP HER PAIN AND WANTS HOME MEDICATIONS BACK, DAUGHTER IN ROOM AND ALSO REQUESTS THAT HER MOTHER BE PUT ON HOME PAIN MEDICATIONS. EDUCATED THE PATIENT AND FAMILY MEMBER THE IMPORTANCE OF PAIN CONTROL AND THE DIFFERENCES BETWEEN PAIN MEDS. STATES THEY UNDERSTOOD BUT STILL WANTS HOME PAIN MEDS STARTED. BERNARDO HAS A LEFT SUB CVL WITH FLUIDS RUNNING AT THIS TIME. LEFT AKA DRESSING IC C/D/I AND WOUND VAC IN PLACE AND WORKING. EDUARDO TO THE LEFT THIGH/GROIN IN PLACE WITH SCANT DRAINAGE IN BULB. PATIENT HAS A LOCKHART IN PLACE. PATIENT SHOWS NO S/SX OF DISTRESS AT THIS TIME. A&O X4 AND REQUESTING ICE WATER. CALL LIGHT WITHIN REACH AND BED IN LOWEST LOCKED POSITION. ASSISTED MAINTENANCE DIRECTOR IN REPOSITIONING THE PATIENT IN BED AND CHANGING PADS. NO OTHER NEEDS AT THIS TIME.
--- NOTE | 2020-04-03 20:19 | NUR ---
PATIENT AND PATIENT'S DAUGHTER REQUESTED NO MORE DIRECTOR INTEGRATED, PATIENT STATES THAT HER NORCOS WORK BETTER THEN WHAT SHE IS GETTING THROUGH THE [facility]. CALLED AND SPOKE WITH CHARLES RDZ ABOUT THIS. NEW ORDERS TO BE FOLLOWED OUT AND WILL LET DAUGHTER AND PATINET ABOUT THIS.
[2020-04-03 20:30] VITALS: BP 123/60
--- NOTE | 2020-04-03 23:30 | NUR ---
RECEIVED REPORT FROM ANTONIO MEJIA ABOUT PT TRANSFER. PT ARRIVED TO FLOOR FROM MED 2. EXCHANGED NEW CLEAN WHITE BED FOR THE ONE PT BROUGHT OVER ON. IV FLUIDS RESUMED. WOUND VAC IN PLACE AND PLUGGED IN TO WALL. EDUARDO DRAIN COMPRESSED. DRESSING TO LEFT AKA C/D/I. PT C/O OF NAUSEA. SAT PT UP IN BED AND GAVE BLUE BAG. ZOFRAN 4 MG GIVEN IV PUSH. FSBS 197 - TREATED WITH 4 UNITS HUMALOG PER SS. BROUGHT PT DIET SPRITE. NO OTHER NEEDS. WILL REASSESS AND CONTINUE TO MONITOR.
[2020-04-04 04:00] VITALS: BP 138/68
[2020-04-04 06:39] LABS: HEMATOCRIT 30.4 % (36.0-48.0); HEMOGLOBIN 9.6 g/dL (12-16); MCH 27.5 pg (26.0-34.0); MCHC 31.6 g/dL (31.0-37.0); MCV 87.1 fL (80.0-100.0); MEAN PLATELET VOLUME 9.2 fL (7.4-10.4); PLATELET COUNT 549 10x3/uL (130-400); RBC 3.49 10x6/uL (4.00-5.40); RDW 19.3 % (11.5-14.5); WBC 20.5 10x3/uL (4.8-10.8)
[2020-04-04 06:48] LABS: LYMPHOCYTES 9 % (15-50); MONOCYTES 8 % (2-11); NEUTROPHILS 83 % (40-80)
[2020-04-04 06:49] LABS: PLATELET ESTIMATE INCREASED
[2020-04-04 07:04] LABS: ANION GAP 13.5 mmol/L (8-16); CALCIUM 7.9 mg/dL (8.5-10.1); CARBON DIOXIDE 24.8 mmol/L (21.0-32.0); POTASSIUM - SERUM 4.3 mmol/L (3.5-5.1)
--- NOTE | 2020-04-04 07:05 | NUR ---
RECEIVED REPROT, ASSUMED CARE, A&O X3, CALL LIGHT IN REACH, REPOSITIONED IN BED, GOWN CHANGED AND SHEET CHANGED, BREATHING EVEN UNLABORED, COMPLAINS OF PAIN, PAIN MEDICATIONS GIVEN, L CVL PATENT, WILL CONTINUE POC
[2020-04-04 09:42] VITALS: BP 175/55
[2020-04-04 12:52] VITALS: BP 121/63
--- NOTE | 2020-04-04 14:21 | NUR ---
DRESSING TO L AKA CHANGED, WOUND CLEANED AND NEW BANDAGE PLACED, BED BATH GIVEN, LINENS CHANGED
[2020-04-04 15:23] LABS: BILIRUBIN NEGATIVE (NEGATIVE); GLUCOSE NEGATIVE (NEGATIVE); KETONE NEGATIVE (NEGATIVE); NITRITE NEGATIVE (NEGATIVE); UROBILINOGEN NORMAL (NORMAL)
[2020-04-04 15:27] LABS: WHITE CELLS - URINE 25-50 /hpf (NEGATIVE)
[2020-04-04 15:28] LABS: BACTERIA FEW /hpf (NEGATIVE); EPITHELIAL CELLS 0-5 /hpf (0-5); RED CELLS - URINE 0-5 /hpf (0-5); YEAST >1+ WITH HYPHAE /hpf (NONE SEEN)
[2020-04-04 17:15] VITALS: BP 133/62
[2020-04-04 20:00] VITALS: BP 127/60
--- NOTE | 2020-04-04 21:09 | NUR ---
HS MEDICATIONS GIVEN TO INCLUDE NORCO, VISTARIL, AND ATIVAN FOR PAIN AND ANXIETY, PER PT REQUEST. WILL MONITOR FOR EFFECTIVENESS.
--- NOTE | 2020-04-04 23:01 | NUR ---
PT REQUESTING TO BE RE-POSITIONED EVERY 20 MINUTES.
[2020-04-05] VITALS (7 sets, daily range): BP systolic 105–133; BP diastolic 55–69
--- NOTE | 2020-04-05 00:15 | NUR ---
PT RESTLESS AND TENSE...THRASHING AROUND IN BED. GAVE GEODON 10 MG IM PER PRN ORDER TO RIGHT VENTROGLUTEAL. WILL MONITOR FOR EFFECTIVENESS.
--- NOTE | 2020-04-05 00:19 | NUR ---
FSBS 180 THIS CHECK REQUIRING COVERAGE WITH 4 UNITS OF INSULIN PER SLIDING SCALE. WILL CONTINUE TO MONITOR FOR NEEDS.
--- NOTE | 2020-04-05 01:15 | NUR ---
PT CONTINUES TO THRASH IN BED AND REQUEST TO BE RE-POSITIONED EVERY 10-15 MINUTES.....YELLING OUT INSTEAD OF USING CALL LIGHT.
--- NOTE | 2020-04-05 01:27 | NUR ---
GAVE NORCO AND VISTARIL PO PER REQUEST FOR C/O SEVERE PAIN AT INCISION SITE. WILL MONITOR FOR EFFECTIVENESS.
[2020-04-05 07:24] LABS: ANION GAP 16.6 mmol/L (8-16); CALCIUM 8.5 mg/dL (8.5-10.1); CARBON DIOXIDE 24.9 mmol/L (21.0-32.0); CREATININE - SERUM 1.1 mg/dL (0.6-1.3)
[2020-04-05 07:28] LABS: BASOPHILS 0.1 % (0-2); EOSINOPHILS 0.7 % (0-7); HEMOGLOBIN 9.4 g/dL (12-16); LYMPHOCYTES 7.1 % (15-50); MCH 27.2 pg (26.0-34.0); MCHC 31.3 g/dL (31.0-37.0); MEAN PLATELET VOLUME 9.2 fL (7.4-10.4); MONOCYTES 7.3 % (2-11); NEUTROPHILS 83.8 % (40-80); PLATELET COUNT 529 10x3/uL (130-400); RBC 3.45 10x6/uL (4.00-5.40); RDW 18.8 % (11.5-14.5); WBC 29.6 10x3/uL (4.8-10.8)
[2020-04-05 07:32] LABS: POTASSIUM - SERUM 3.5 mmol/L (3.5-5.1)
--- NOTE | 2020-04-05 08:20 | NUR ---
PT IN BED, CALLING OUT "NURSE, NURSE, COME ON IN HERE." STAFF ENTERS ROOM, PT THEN STATES, "I DON'T REMEMBER WHAT I WANTED." PT TELEMETRY PLACED BACK ON SHE IS PULLING PADS OFF. GOWN PLACED ON PT, PT IMMEDIATELY PULLS GOWN OFF AND STATES "ITS TOO HOT WITH THIS THING ON." LEFT CVL IN PLACE, INFUSING PROCALAMINE @ 30ML/HR, NS @ 15ML/HR BOTH INFUSING VIA PUMP. SITE WITHOUT REDNESS OR EDEMA. DRESSING INTACT TO LEFT GROIN AREA, WITH WOUND VAC IN PLACE. DRESSING INTACT TO LEFT AKA, SITE WITHOUT REDNESS OR EDEMA, BUT EXTREMITY IS WARM TO TOUCH. EDUARDO DRAIN INTACT, WITHOUT ANY DRAINAGE AT THIS TIME. F/C PATENT TO GRAVITY. CL WITHIN REACH. ENCOURAGED TO CALL WITH NEEDS. CONTINUE POC
--- NOTE | 2020-04-05 20:09 | NUR ---
PATIENT RESTING IN BED WITH EYES CLOSED AND NO S/S OF DISTRESS. BED IN LOWEST POSITION AND CALL LIGHT WITHIN REACH. WILL CONTINUE TO MONITOR.
--- NOTE | 2020-04-05 21:06 | NUR ---
ADMINISTERED MEDS PER ORDERS. DENIES OTHER NEEDS .WILL CONTINUE TO MONITOR.
[2020-04-06] VITALS: BP 131/67
[2020-04-06 06:35] LABS: CALCIUM 8.3 mg/dL (8.5-10.1); CARBON DIOXIDE 23.6 mmol/L (21.0-32.0); CREATININE - SERUM 1.1 mg/dL (0.6-1.3); POTASSIUM - SERUM 3.6 mmol/L (3.5-5.1)
[2020-04-06 06:53] LABS: HEMATOCRIT 26.6 % (36.0-48.0); HEMOGLOBIN 8.4 g/dL (12-16); MCH 27.1 pg (26.0-34.0); MCHC 31.6 g/dL (31.0-37.0); MCV 85.8 fL (80.0-100.0); MEAN PLATELET VOLUME 9.4 fL (7.4-10.4); PLATELET COUNT 520 10x3/uL (130-400); RDW 18.5 % (11.5-14.5); WBC 25.5 10x3/uL (4.8-10.8)
--- NOTE | 2020-04-06 07:15 | NUR ---
REC'D IN BED AWAKE AND ALERT. RESP EVEN AND UNLABORED WITH NO DISTRESS NOTED. CAN EXAPRESS NEEDS AND WANTS. NO C/O NOTED OR VOICED. CALL FOR EVERYONE THAT PASSES HER DOOR. NO C/O NOTED OR VOICED AT THIS TIME. ASSESSMENT COMPLETED. C/L IN REACH AT BEDSIDE.
[2020-04-06 07:26] LABS: ANISOCYTOSIS OCC; LYMPHOCYTES 5 % (15-50); MONOCYTES 2 % (2-11); NEUTROPHILS 89 % (40-80); PLATELET ESTIMATE INCREASED; POLYCHROMASIA OCC
[2020-04-06 08:00] VITALS: BP 124/58
--- NOTE | 2020-04-06 09:57 | NUR ---
WAS MEDICATED WITH NORCO AT THIS TIME FOR C/O LEFT SIDE PAIN. C/L IN REACH AT BEDSIDE.
--- NOTE | 2020-04-06 11:40 | NUR ---
Rehab Note- Spoke with Itzel with [facility] on behalf of [facility], stated that her case is currently under review. Stated that she will esculate the case at this time. Will continue to await determination for possible inpatient acute rehab stay. Thank you for this referral! Janny Paredes RN Clinical Liaison, [facility] Rehab
[2020-04-06 12:00] VITALS: BP 115/63
--- NOTE | 2020-04-06 15:41 | NUR ---
Rehab Note- Received VM and fax with approval for inpatient acute rehab stay, Auth #[id number]. Will accept the patient when bed avaliable and ready for discharge from the acute hospital. Will continue to follow at this time. Thank you for this referral! Janny Paredes RN Clinical Liaison, [facility] Rehab
--- NOTE | 2020-04-06 15:41 | NUR ---
OT NOTE: PT EXHIBITED INCREASED CONFUSION. NURSING NOTIFIED. PT REQUIRED INCREASED VC FOR TASK MANAGEMENT. PT COMPLETED SIDE ROLLING WITH MOD/MAX A. PT COMPLETED SUPINE TO SIT WITH MOD/MAX A. PT COMPLETED LB HYGIENE TASKS WITH TOTAL A. PT HAS HAD SEVERAL BM THIS AM. JAYLIN SAM. [phone] THANK YOU,JASON VELASQUEZ
--- NOTE | 2020-04-06 15:58 | NUR ---
OT NOTE: PT MORE LETHARGIC IN PM.. INCREASED CONFUSION NOTED TODAY. DIFFICULTY WITH MOTOR PLANNING. BED MOB IWTH MAX ASSIST; EDUCATION ON USE OF TRAPEZE BAR, HOWEVER, PT WITH INABILITY TO COORDINATE MOVEMENTS THIS AFTERNOON. SIMPLE GROOMING TO INCLUDE WASHING HANDS AND FACE WITH CLOTH; MAX ASSIST WITH TOILET HYGIENE; MAX ASSIST WITH STATIC SITTING BALANCE FOR SHORT AMOUNT OF TIME.. COURTNEY WILKINS, OTR/L [phone]
[2020-04-06 16:00] VITALS: BP 135/69
--- NOTE | 2020-04-06 18:45 | NUR ---
I have reviewed this patient and I concur with the Shift Assessment completed by the Licensed Practical Nurse today this shift.
--- NOTE | 2020-04-06 19:39 | NUR ---
PATIENT RESTING IN BED AND DENIES NEEDS AT THIS TIME. BED IN LOWEST POSITION AND CALL LIGHT WITHIN REACH. ENCOURAGED THE PATIENT TO CALL IF SHE HAS NEEDS. WILL CONTINUE TO MONITOR.
[2020-04-06 20:00] VITALS: BP 134/65
--- NOTE | 2020-04-06 21:07 | NUR ---
ADMINISTERED MEDS PER ORDERS. PATIENT DENIES OTHER NEEDS. WILL CONTINUE TO MONITOR.
[2020-04-07] VITALS: BP 136/77
[2020-04-07 04:00] VITALS: BP 128/67
[2020-04-07 06:22] LABS: BASOPHILS 0 % (0-2); EOSINOPHILS 0.1 % (0-7); HEMATOCRIT 25.6 % (36.0-48.0); HEMOGLOBIN 8.3 g/dL (12-16); IMMATURE GRANULOCYTES 0.5 % (0-5); LYMPHOCYTES 6.8 % (15-50); MCH 27.4 pg (26.0-34.0); MCHC 32.4 g/dL (31.0-37.0); MCV 84.5 fL (80.0-100.0); MEAN PLATELET VOLUME 9.4 fL (7.4-10.4); MONOCYTES 6.4 % (2-11); NEUTROPHILS 86.2 % (40-80); PLATELET COUNT 535 10x3/uL (130-400); RBC 3.03 10x6/uL (4.00-5.40); RDW 18.1 % (11.5-14.5); WBC 24.6 10x3/uL (4.8-10.8)
[2020-04-07 06:24] LABS: ANION GAP 13.9 mmol/L (8-16); CARBON DIOXIDE 22.2 mmol/L (21.0-32.0); POTASSIUM - SERUM 3.1 mmol/L (3.5-5.1)
[2020-04-07 08:00] VITALS: BP 128/63
--- NOTE | 2020-04-07 08:23 | NUR ---
ASSISTED LATHE PULLER WITH PT CARE, PT LEFT AKA IS DRAINING AND HAS ODOR TO IT, WILL RELAY MESSAGE TO DR LAZAR DURING HIS ROUNDS
[2020-04-07 12:00] VITALS: BP 130/74
--- NOTE | 2020-04-07 14:10 | NUR ---
Nutrition follow-up: Pt receiving a regular diet. PO intake has decreased 2/2 pt with increased pain and pain medication making her a little lethargic. Pt is yelling at everyone who passess her room to tell them she needs pain medication for severe pain. RDN informed nurse. Labs reviewed Wt: 213# Will continue to provide food choices and honor food preferences; offer nutritional supplements. RDN following.
[2020-04-07 16:00] VITALS: BP 129/66
--- NOTE | 2020-04-07 16:49 | NUR ---
PT REQUESTED PAIN MEDICATION STATING PAIN IS AT A 9, PT IS 2 HOURS TOO EARLY FOR NORCO, ADMINISTERED PRN TYLENOL ALONG WITH VITERIL, CONTINUE WITH PLAN OF CARE
--- NOTE | 2020-04-07 17:32 | NUR ---
OT NOTE: PT COMPLETED SUPINE TO SIT WITH MAX A. PT "PUSHES" AND HAS BEEN CUED TO CORRECT. PT COMPLETED EOB SITTING WITH MAX A SECONDARY TO DECREASED PROCESSING OF TASK. PT REQUIRED VERBAL CUES FOR CORRECTION OF TRUNK . PT COMPLETED FACE HYGIENE WITH SET UP. [id number] THANK YOU,JASON VELASQUEZ
[2020-04-07 20:00] VITALS: BP 119/61
--- NOTE | 2020-04-07 22:57 | NUR ---
I have reviewed this patient and I concur with the Shift Assessment completed by the Licensed Practical Nurse today this shift.
[2020-04-08] VITALS (15 sets, daily range): BP systolic 83–134; BP diastolic 33–82
[2020-04-08 05:05] LABS: BASOPHILS 0 % (0-2); EOSINOPHILS 0.1 % (0-7); HEMATOCRIT 24.9 % (36.0-48.0); HEMOGLOBIN 7.9 g/dL (12-16); IMMATURE GRANULOCYTES 0.6 % (0-5); LYMPHOCYTES 6.1 % (15-50); MCH 26.9 pg (26.0-34.0); MCHC 31.7 g/dL (31.0-37.0); MCV 84.7 fL (80.0-100.0); MEAN PLATELET VOLUME 9.4 fL (7.4-10.4); MONOCYTES 5.1 % (2-11); NEUTROPHILS 88.1 % (40-80); PLATELET COUNT 509 10x3/uL (130-400); RBC 2.94 10x6/uL (4.00-5.40); RDW 17.9 % (11.5-14.5); WBC 24.8 10x3/uL (4.8-10.8)
[2020-04-08 05:29] LABS: ALBUMIN 1.2 g/dL (3.4-5.0); ANION GAP 11.2 mmol/L (8-16); BILIRUBIN - TOTAL 0.48 mg/dL (0.2-1.3); CALCIUM 7.9 mg/dL (8.5-10.1); CARBON DIOXIDE 22.6 mmol/L (21.0-32.0); PROTEIN - SERUM 6.3 g/dL (6.4-8.2)
[2020-04-08 05:59] LABS: POTASSIUM - SERUM 3.8 mmol/L (3.5-5.1)
--- NOTE | 2020-04-08 07:54 | NUR ---
AWAKE AND WITHOUT DISTRESS. CALL OUT NURSE WHEN SHE NEEDS ANYTHING.DOOR OPEN TO MONITOR
--- NOTE | 2020-04-08 10:24 | NUR ---
PATIENT HAS CALLED OUT ALL MORNING, STATING SHE IS IN PAIN AND NEEDS TO BE REPOSITIONED, ASSISTED PATIENT IN GETTING COMFORTABLE AND PAGED PHYSICAL THERAPY TO ASSIST, CHANGED PT DRESSING WELL LINENS, PATIENT INCISION SITE IS DRAING AND HAS A FOUL ODOR TO IT. PT IS VERY CONFUSED NOW AND CALLS ME DR MCCALL, REORIENTED PT SEVERAL TIMES YET SHE STILL CALLS ME DR MCCALL AND DOMENICO TO GO SEE ANALY. PER REPORT PT DID NOT SLEEP LAST NIGHT AND IS FIGHTING REST, ORDERS FOR BLOOD RECEIVED THIS MORNING, CONTINUE WITH PLAN OF CARE
--- NOTE | 2020-04-08 11:33 | NUR ---
CALL TO DAUGHTER VITO, PHONE NUMBER [phone]. NOT ACCEPTING CALLS AT THIS TIME MESSAGE. UNABLE TO LEAVE MESSAGE TO INFORM HER MOM HAD BEEN MOVED TO ICU,ROOM 2309.
--- NOTE | 2020-04-08 12:31 | NUR ---
PROSTHESIS AND CLOTHES TAKEN TO ICU BY BRUNO WITH HOUSE KEEPING.
--- NOTE | 2020-04-08 13:00 | NUR ---
PT RECEIVED FROM FLOOR. DR ORANTES AT BEDSIDE GIVEN UDPATE. NEW ORDERS RECIEVED.
--- NOTE | 2020-04-08 13:00 | NUR ---
RECEIVED REPORT FROM [facility] NURSE
--- NOTE | 2020-04-08 13:50 | NUR ---
OT NOTE: PT SEEN IN AM.. PT VERY CONFUSED.. ASSISTED P.T IN GETTING PT UP TO EOB WITH MAX ASSIST; SITTING BALANCE WITH MAX ASSIST; PT VEYR FEARFUL OF FALLING. HAS NO RECOLLECTION OF SEEING THIS THERAPIST THAT SHE HAS SEEN FOR APPROX 1 MOS. MOD ASSIST TO IRAJ GOWN.. MOD ASSIST FOR WASHING FACE AND HANDS. BACK TO BED WITH MAX ASSIST; ROLLING SIDE TO SIDE TO CHANGE LINENS AND PERFORMING PERINEAL CARE. POSITIONED UP IN BED WITH MAX ASSIST X 2. RUI WILKINS, OTR/L [phone]
--- NOTE | 2020-04-08 15:00 | NUR ---
REASSESSMENT COMPLETE PER FLOW SHEET. VSS. PT RESTING COMFORTABLY WILL CONTINUE TO MONTIOR
--- NOTE | 2020-04-08 16:00 | NUR ---
DR NOVAK HERE AT BEDSIDE. NEW ORDER OF CVP RECEIVED
--- NOTE | 2020-04-08 16:00 | NUR ---
PATIENT'S DAUGHTER CALLED TO CHECK ON HER MOTHER. MADE HER AWARE OF THE PATIENT HEALTH STATUS
--- NOTE | 2020-04-08 18:02 | NUR ---
PATIENT HAD A BEDBATH. NOW RESTING COMFORTABLY WITH EYES CLOSED
--- NOTE | 2020-04-08 19:00 | NUR ---
REPORT RECEIVED. PT AAOX4, RESTING IN BED. EDUARDO DRAIN AND WOUND VAC IN PLACE, ASSESSMENT COMPLETED, SEE FLOWSHEET. LT SUBCLAVIAN CVL INFUSING, SEE IV FLOWSHEET. WILL CONTINUE TO MONITOR.
--- NOTE | 2020-04-08 20:48 | NUR ---
PT FAMILY CALLED, PASSWORD GIVEN. UPDATED ON PT STATUS.
--- NOTE | 2020-04-08 21:00 | NUR ---
PT REPOSITIONED. ASSISTED WITH ROM IN RIGHT LEG. WILL CONTINUE TO MONITOR.
--- NOTE | 2020-04-08 23:00 | NUR ---
REASSESSMENT COMPLETED, SEE FLOWSHEET. CALL LIGHT IN REACH.
[2020-04-09] VITALS (24 sets, daily range): BP systolic 83–137; BP diastolic 27–92
--- NOTE | 2020-04-09 01:00 | NUR ---
ASSISTED PT WITH REPOSITIONING, PT AAOX4.
--- NOTE | 2020-04-09 03:00 | NUR ---
REASSESSMENT COMPLETED, SEE FLOWSHEET.
[2020-04-09 04:06] LABS: HEMOGLOBIN 9.9 g/dL (12-16); MCH 27.4 pg (26.0-34.0); MCHC 31.9 g/dL (31.0-37.0); MCV 85.9 fL (80.0-100.0); MEAN PLATELET VOLUME 9.6 fL (7.4-10.4); PLATELET COUNT 454 10x3/uL (130-400); RBC 3.61 10x6/uL (4.00-5.40); RDW 17.3 % (11.5-14.5); WBC 22.9 10x3/uL (4.8-10.8)
[2020-04-09 04:14] LABS: ALBUMIN 1.3 g/dL (3.4-5.0); BILIRUBIN - TOTAL 0.62 mg/dL (0.2-1.3); CALCIUM 7.9 mg/dL (8.5-10.1); CARBON DIOXIDE 20.6 mmol/L (21.0-32.0); PROTEIN - SERUM 6.7 g/dL (6.4-8.2)
[2020-04-09 04:25] LABS: ANION GAP 14.8 mmol/L (8-16); CREATININE - SERUM 1.3 mg/dL (0.6-1.3); POTASSIUM - SERUM 4.4 mmol/L (3.5-5.1)
--- NOTE | 2020-04-09 05:00 | NUR ---
SMALL SEMIFORMED BM NOTED. ASSISTED WITH REPOSITIONING.
[2020-04-09 05:19] LABS: EOSINOPHILS 1 % (0-7); LYMPHOCYTES 7 % (15-50); MONOCYTES 5 % (2-11); NEUTROPHILS 84 % (40-80); PLATELET ESTIMATE INCREASED
--- NOTE | 2020-04-09 11:00 | NUR ---
INCONTINENT OF STOOL, SKINCARE AND LINEN CHANGE COMPLETED, DRESSING CHANGE TO LEFT STUMP, PAINTED WITH BETADINE AND COVERED WITH BORDERED GAUZE, STAGE 2 B/L BUTTOCK COVERED WITH BUTTERFLY MEPILEX DRESSING, TOLERATED WITHOUT DIFFICULTY, CONFUSED RE: TIME, NO OTHER ACUTE CHANGE FROM PREVIOUS
--- NOTE | 2020-04-09 21:30 | NUR ---
PT FAMILY CALLED, PASSWORD GIVEN. UPDATED ON PT STATUS.
[2020-04-10] VITALS (11 sets, daily range): BP systolic 108–154; BP diastolic 43–104
--- NOTE | 2020-04-10 03:46 | NUR ---
Wound care to L stump provided r/t soiled dressing. Copious amount of serosangineous foul smelling drainage noted. finn intact. small area of the periwound is discolored green with blistering noted. Pt tolerated dressing change but stated that it is tender to the touch. NAD at this time. Will continue to monitor
[2020-04-10 07:15] LABS: ALBUMIN 1.2 g/dL (3.4-5.0); ANION GAP 15.6 mmol/L (8-16); BILIRUBIN - TOTAL 0.36 mg/dL (0.2-1.3); CALCIUM 7.7 mg/dL (8.5-10.1); CARBON DIOXIDE 18.6 mmol/L (21.0-32.0); CREATININE - SERUM 1.1 mg/dL (0.6-1.3); MAGNESIUM - SERUM 2.4 mg/dL (1.8-2.4); PHOSPHOROUS 2.8 mg/dL (2.5-4.9); POTASSIUM - SERUM 4.2 mmol/L (3.5-5.1)
[2020-04-10 07:18] LABS: BASOPHILS 0.1 % (0-2); EOSINOPHILS 0.2 % (0-7); HEMOGLOBIN 10.5 g/dL (12-16); IMMATURE GRANULOCYTES 0.7 % (0-5); MCH 27.6 pg (26.0-34.0); MCHC 31.8 g/dL (31.0-37.0); MCV 86.6 fL (80.0-100.0); MEAN PLATELET VOLUME 9.5 fL (7.4-10.4); PLATELET COUNT 445 10x3/uL (130-400); RBC 3.81 10x6/uL (4.00-5.40); RDW 17.6 % (11.5-14.5); WBC 17.5 10x3/uL (4.8-10.8)
--- NOTE | 2020-04-10 08:00 | OP ---
PATIENT NAME: STEFANY RUBY I MEDICAL RECORD: [id number] :60 LOCATION:D.ICU D.2309 ADMISSION DATE:02/28/20 SURGEON: PETROS LANE MD DATE OF OPERATION: 03/26/2020 PREOPERATIVE DIAGNOSES: 1. Postoperative bleeding from the left groin. 2. Status post left femoral endarterectomy with patch angioplasty. 3. Peripheral vascular disease, status post left BKA. 4. Left groin infection. 5. Coronary artery disease. POSTOPERATIVE DIAGNOSES: 1. Postoperative bleeding from the left groin. 2. Status post left femoral endarterectomy with patch angioplasty. 3. Peripheral vascular disease, status post left BKA. 4. Left groin infection. 5. Coronary artery disease. PROCEDURES: 1. Left groin wound exploration. 2. Ligation of distal SFA. 3. Common femoral to profunda femoral artery bypass with bovine arterial graft. 4. Wound VAC placement. SURGEON: Petros Lane MD REPORT OF OPERATION: The patient's left groin and lower extremity were prepped and draped in sterile fashion. The patient had a few sutures in place in the subcutaneous tissues and these were all taken down with sharp dissection. I was able to visualize the left groin wound and there was some brisk arterial bleeding present. Pressure was held at the areas. I cleaned out some of the surrounding clotted tissue. I was eventually able to get down to the common femoral artery patch angioplasty and did not see any evidence of any bleeding from this. This had bled about a week ago and had been repaired and there was no sign of any active bleeding at this point. As we went inferiorly, there was some bleeding just distal to the angioplasty. I was able to hold pressure on the patch and this discontinued any bleeding distally. To gain proximal control, I went and opened up the inguinal ligament with electrocautery and was able to get on the proximal aspect of the common femoral vessel and eventually was able to get around this and place a vessel loop. The patient had very calcified vessels in this region. I was able to flush this area with heparinized saline. The patient had poor flow through the common femoral artery proximally, but there was arterial flow present. As I dissected down inferiorly, I noted that there was nothing but clot present and some calcifications. As I elevated these up, I could see that the proximal superficial femoral artery was completely necrosed away for a length of about 5 cm, so I went distally. I was able to find the remaining aspect of the vessel. There was no bleeding from this because of the significant amount of calcification present. I went ahead and removed these calcifications and ligated this vessel with a 3-0 Prolene. I then was able to dissect out the patient's profunda femoral artery and a vessel loop was placed around its proximal aspect. There was an arteriotomy repair from the previous surgery that was inspected and this was opened up. As I inspected the vessel closely, I went ahead and just opened it up all the way so I could see into the vessel. I OPERATIVE REPORT [id number] STEFANY RUBY I completed endarterectomy proximally so I could get a better area to sow on a graft. I ended up getting a bovine arterial graft. I was able to perform an end-to-end anastomosis of the distal aspect of this graft to the proximal common femoral artery. I then performed an end-to-end anastomosis of the graft to the distal aspect of the common femoral artery. The patient had arterial blood flow noted through the vessel and the graft. At the conclusion of the case, there was no sign of any bleeding. I then irrigated out the wound with peroxide and saline solution and cleaned up any areas that appeared to have necrotic tissue. At the conclusion of the case, the remaining tissue appeared to be viable. The graft was then covered with BioGlue. After this had dried completely, then a 15-Tamazight drain was inserted from the left medial thigh just distal to the left groin wound and rested in the groin wound. This was sutured into place with a 3-0 nylon. I then reapproximated the subcutaneous tissues with multiple interrupted 3-0 Vicryl and placed a wound VAC. COMPLICATIONS: None. CONDITION: Fair. ANESTHESIA: General endotracheal. BLOOD LOSS: 100 mL. NTS:[id number] Voice Confirmation ID: [id number] DOCUMENT ID: [id number] PETROS LANE MD at 0800 CC: [id number] DICTATION DATE: 03/26/202042 GUEST SERVICE SUPERVISOR: 03/26/20 2303 ADM IN [facility] [address] [place] [address]
--- NOTE | 2020-04-10 09:45 | NUR ---
PC TO CARDIOLOGY OFFICE RE: CONSULT, PAGED POLY SULLIVAN APN PER DEMETRIA [phone] POLY HERE FOR CONSULT AND EVAL, NEW ORDER GIVEN FOR EKG, CONSIDERING HC TODAY AND RAYMUNDO ON MONDAY
--- NOTE | 2020-04-10 11:00 | NUR ---
Nutrition follow-up: Pt NPO for heart cath today Labs reviewed WT: 213# Has been on a regular diet; po intake ~50% of meals RDN following.
--- NOTE | 2020-04-10 11:30 | EC ---
PATIENT:STEFANY RUBY I DATE OF SERVICE: 02/28/20 SEX: F MEDICAL RECORD: [id number] DATE OF : 60 LOCATION:[facility] D230 AGE OF PATIENT: 60 ADMISSION DATE: 02/28/20 REFERRING PHYSICIAN: INTERPRETING PHYSICIAN: ABDI KEN MD ECHOCARDIOGRAM REPORT ECHO CHARGES 4 ECHO COMPLETE Date: 04/05/20 CLINICAL DIAGNOSIS: LEUKOCYTOSIS/FEVER R/O VEGETATION ECHOCARDIOGRAPHIC MEASUREMENTS (adult normal given) AC root (d.<3.7cm) 3.4 cm LV Septum d (<1.2 cm> 1.3 cm Valve Excursion 1.7 cm LV Septum (systole) 1.7 cm Left Atria (s.<4.0cm> 3.2 cm LVPW d(<1.2cm) 1.2 cm RV (d.<2.3cm) 2.2 cm LVPW (sytole) 1.7 cm LV diastole(<5.6CM) 5.3 cm MV E-F(>70mm/sec) cm LV systole 3.3 cm LVOT Diameter 1.8 cm MV exc.(>10mm) cm Est.ejection fraction (50-75%) % DOPPLER: LVIT cm/sec A 119 cm/sec E 100 cm/sec LA cm/sec RVSP mmHg LVOT 123 cm/sec AOP1/2T m/s Asc. Ao 145 cm/sec RVOT 69.0 cm/sec RA cm/sec PA 85.0 cm/sec AV Gradient Peak 8.4 mmHg AV Mean 3.9 mmHg AV Area 2.3 cm MV Gradient Peak 6.7 mmHg MV Mean 3.4 mmHg MV Area cm COMMENTS: Human Performance Professor: 1 ELVER MINOROE Ship Boss: 3 Dr. Godinez TAPE# PACS Pericardial Effusion N DATE OF SERVICE: Adequate 2D, color flow imaging, spectral Doppler, and M-Mode. LVH is present. LV internal dimension is normal. Wall motion is normal. EF is greater than or equal to 55%. Aortic valve is tricuspid. No evidence of stenosis by Doppler interrogation. Left atrium is normal at 3.2 cm. Mitral valve has a possible vegetation on the posterior leaflet. There is a mild to moderate degree of MR present. Could consider a transesophageal echocardiographic study if clinically indicated. Right-sided chambers are ECHOCARDIOGRAM REPORT [id number] FLORI,STEFANY I grossly normal. Trivial TR by color flow imaging. TRANSINT:[id number] Voice Confirmation ID: [id number] DOCUMENT ID: [id number] ABDI KEN MD at 1130 CC: [id number] DICTATION DATE: 04/06/20 1256 JUTE BAG SEWER: 04/06/20 1558 ADM IN [facility] [address] [place] [id number]
[2020-04-10 12:14] LABS: LDL-HDL RATIO 4.1 ratio (1.5-3.5)
--- NOTE | 2020-04-10 12:30 | NUR ---
PRE OP FOR PENDING HC PER MAR FLOWSHEET
--- NOTE | 2020-04-10 12:50 | NUR ---
TO B2B SALES PROFESSIONAL WITH PERSONNEL X2, AWAKE AND APPREHENSIVE, NO NEEDS AT THIS TIME
--- NOTE | 2020-04-10 13:55 | NUR ---
BACK FROM TRANSPORTATION DIRECTOR, CONNECTED TO ICU MONITORS, VSS, REPOSITIONED FOR COMFORT, 1405 DR KEN SPOE WITH FAMILY RE: POOR PROGNOSIS AND MAKING PATIENT COMFORTABLE, FAMILY DECISION MADE TO GO WITH INPATIENT HOSPICE, DAUGHTER ELMER AND SPOUSE ADFNE.
--- NOTE | 2020-04-10 15:15 | NUR ---
DNR PAPERS, SIGNED AND ORDER PLACE FOR HOSPICE CONSULT
--- NOTE | 2020-04-10 16:01 | MORECARE ---
CASE MANAGEMENT DISCHARGE SUMMARY PATIENT: STEFANY RUBY I UNIT: [id number] ADM DATE: 02/28/20 AGE: 60 : 60 SEX: F ROOM/BED: D.2309 AUTHOR: LUIS,DOC PHYSICIAN: REFERRING PHYSICIAN: CECILLE MCCALL MD DATE OF SERVICE: 04/10/20 Discharge Plan Patient Name: STEFANY RUBY Facility: [facility]:[place] : 1960 Planned Disposition: Anticipated Discharge Date: Discharge Date: Expected LOS: Initial Reviewer: [email or web address] Initial Review Date: 02/28/2020 Generated: 04/10/20 5:01 pm DCP- Discharge Planning Updated by [email or web address]: Cydney Arias on 03/25/20 7:[address] Patient Name: STEFANY RUBY Encounter No: [id number] : 1960 Primary Insurance: [employer] MEDICARE ADV Anticipated DC Date: Planned Disposition: External Planned Provider: : 03/23/20 Late entry DCP follow-up note: Mamie at [phone] (pt daughter) called CM to discuss DC plan. Daughter states she wants her mother to go to rehab because she is not able to accommodate her needs. CM read through the notes and states the patient has refused to go, and CM can not force the patient into rehab. Mamie states she is unable to get the patient up the stairs into her home. CM spoke with of other alternatives such as , and fdc services. Pt daughter states she will peak with her other. CM states she will speak with her mother tomorrow about DC plan.Patient and family in agreement with discharge plan. No changes to plan. Case management will follow and assist as needed. 03/24/20 CM met with pt to discuss DC plan. Patient states she thought about IP rehab and is would like to go. EVANS signed for IP rehab at [facility]. Case management will follow and assist as needed. CM attempted o call Romelia at [phone] to DC pt choice for IP Rehab 03/25/20 CM called oRmelia at [phone] and updated her on the DCP for IP rehab. Pt and daughter in agreement with DC plan. CM will continue to assist as needed. Cydney Hugo DCP- Discharge Planning Updated by [email or web address]: Jacki Karl on 03/13/20 3:[address] [facility] wound vac is approved and in materials when patient is ready for discharged it will need to be brought up to the floor serial # [id number] Earnestine with materials will have it on her desk with a copy of the assignment form DCP- Discharge Planning Updated by [id number]: Elke Whitney on 03/12/20 6:[address] Patient Name: STEFANY RUBY Admission Status: Elective Accout number: [id number] Admission Date: 02-28-2020 : 1960 Admission Diagnosis:NONTRAUMATIC ISCHEMIC INFARCTION OF MUSCLE, UNSP LOWER Attending: CECILLE MCCALL Current LOS: 13 Anticipated DC Date: Planned Disposition: Primary Insurance: [employer]ARE ADV Discharge Planning Comments: I SPOKE WITH PATIENT TODAY AND SHE STATES SHE HAS WC BSC AND ALL OTHER EQUIPMENT SHE MAY NEED. SHE IS POD 1 AND NOT FEELING GOOD TODAY. AT TIME OF DC SHE SAID IF SHE NEEDS HH SHE WOULD LIKE [facility]. WE MAY NEED TO DISCUSS REHAB WITH HER WHEN SHE FEELS BETTER. SHE SAYS SHE LIVES AT HOME WITH HER . CM WILL FOLLOW AND ASSIST NEEDED. Salesperson Men'S Furnishings: Elke Whitney DCP- Discharge Planning Updated by [id number]: Elke Whitney on 03/12/20 1:[address] Patient Name: STEFANY RUBY Admission Status: Elective Accout number: [id number] Admission Date: 02-28-2020 : 1960 Admission Diagnosis:NONTRAUMATIC ISCHEMIC INFARCTION OF MUSCLE, UNSP LOWER Attending: CECILLE MCCALL Current LOS: 13 Anticipated DC Date: Planned Disposition: Primary Insurance: [employer]ARE ADV Discharge Planning Comments: FAX SENT TO [facility] FOR WOUND VAC. Salesperson Men'S Furnishings: Elke Whitney DCP- Discharge Planning Updated by [id number]: Rosey Huerta on 03/03/20 4:[address] Patient Name: STEFANY RUBY Admission Status: Elective Accout number: [id number] Admission Date: 02-28-2020 : 1960 Admission Diagnosis:NONTRAUMATIC ISCHEMIC INFARCTION OF MUSCLE, UNSP LOWER Attending: CECILLE MCCALL Current LOS: 4 Anticipated DC Date: Planned Disposition: Primary Insurance: [employer]ARE ADV Discharge Planning Comments: CM met with patient to complete initial dc planning assessment. CM educated patient on the CM role and verbal consent given by patient to complete assessment. Patient lives at home with family. Patient is independent. At discharge patient plans to return home and feels this is a safe discharge. CM discussed availability of home health, rehab services, and medical equipment. Patient states that she has all the DME that she needs. Patient will have family to transport home. Patient denied known discharge needs at this time. CM will continue to follow and will assist as needed with dc plans/needs. Salesperson Men'S Furnishings: Rosey Huerta DCPIA - Discharge Planning Initial Assessment Updated by [email or web address]: Rosey Huerta on 03/03/20 5:47 pm * Is the patient Alert and Oriented? Yes * How many steps to enter\exit or inside your home? 18 * PCP CAL * Pharmacy [facility] * Preadmission Environment Home with Family * ADLs Independent * Other Equipment WALKER, BSC, W/C, SC * List name and contact numbers for known caregivers / representatives who currently or will assist patient after discharge: DAFNE RUBY - [phone] * Verbal permission to speak to the caregivers and representatives has been obtained from the patient. Yes * Community resources currently utilized None * Additional services required to return to the preadmission environment? No * Can the patient safely return to the preadmission environment? Yes * Has this patient been hospitalized within the prior 30 days at any hospital? No External Providers [facility] Next Contact Date: Service Request Date: Service Type: Resolution: Reviewer: Comments: Last DP export: 03/25/20 7:24 a Patient Name: STEFANY RUBY Page [id number] at 1601 All edits/amendments must be made on the electronic document DICTATION DATE: 04/10/20 160 PHOTORADIO OPERATOR: ELLA 04/10/20 160 RPT#: [id number] DC DATE: STATUS: ADM IN [facility] [address] [place] [address] END OF REPORT
--- NOTE | 2020-04-10 17:34 | NUR ---
REPORT CALLED TO [facility] ON MED SURG FOR PENDING TRANSFER TO [id number]
--- NOTE | 2020-04-10 18:35 | NUR ---
EDUARDO DRAIN REMOVED FROM LEFT GROIN PER ORDER.
--- NOTE | 2020-04-10 19:09 | MORECARE ---
CASE MANAGEMENT DISCHARGE SUMMARY PATIENT: STEFANY RUBY I UNIT: [id number] ADM DATE: 02/28/20 AGE: 60 : 60 SEX: F ROOM/BED: D.2215 AUTHOR: JEAN CARLOS SMITH PHYSICIAN: REFERRING PHYSICIAN: CECILLE MCCALL MD DATE OF SERVICE: 04/10/20 Discharge Plan Patient Name: STEFANY RUBY Facility: [facility]:[place] : 1960 Planned Disposition: Anticipated Discharge Date: Discharge Date: Expected LOS: Initial Reviewer: [email or web address] Initial Review Date: 02/28/2020 Generated: 04/10/20 8:09 pm Comments DCP- Discharge Planning Updated by [email or web address]: Rosey Huerta on 04/10/20 6:[address] CM notified that post [facility] prognosis is poor and family had requested Hospice. CM contacted [facility] to al for GIP and faxed records. Andrew to come and evaluate patient this evening. CM will continue to follow and assist as needed with discharge planning / needs. DCP- Discharge Planning Updated by [id number]: Cydney Arias on 03/25/20 7:[address] Patient Name: STEFANY RUBY Encounter No: [id number] : 1960 Primary Insurance: WELLCARE MEDICARE ADV Anticipated DC Date: Planned Disposition: External Planned Provider: : 03/23/20 Late entry DCP follow-up note: Mamie at [phone] (pt daughter) called CM to discuss DC plan. Daughter states she wants her mother to go to rehab because she is not able to accommodate her needs. CM read through the notes and states the patient has refused to go, and CM can not force the patient into rehab. Mamie states she is unable to get the patient up the stairs into her home. CM spoke with of other alternatives such as HH, and group home services. Pt daughter states she will peak with her other. CM states she will speak with her mother tomorrow about DC plan.Patient and family in agreement with discharge plan. No changes to plan. Case management will follow and assist as needed. 03/24/20 CM met with pt to discuss DC plan. Patient states she thought about IP rehab and is would like to go. EVANS signed for IP rehab at [facility]. Case management will follow and assist as needed. CM attempted o call Romelia at [phone] to DC pt choice for IP Rehab 03/25/20 CM called Romelia at [phone] and updated her on the DCP for IP rehab. Pt and daughter in agreement with DC plan. CM will continue to assist as needed. Cydney Arias DCP- Discharge Planning Updated by [id number]: Jacki Barajas on 03/13/20 3:[address] [facility] wound vac is approved and in materials when patient is ready for discharged it will need to be brought up to the floor serial # [id number] Earnestine with materials will have it on her desk with a copy of the assignment form DCP- Discharge Planning Updated by [id number]: Elke Whitney on 03/12/20 6:[address] Patient Name: STEFANY RUBY Admission Status: Elective Accout number: [id number] Admission Date: 02-28-2020 : 1960 Admission Diagnosis:NONTRAUMATIC ISCHEMIC INFARCTION OF MUSCLE, UNSP LOWER Attending: CECILLE MCCALL Current LOS: 13 Anticipated DC Date: Planned Disposition: Primary Insurance: WELLCARE MEDICARE ADV Discharge Planning Comments: I SPOKE WITH PATIENT TODAY AND SHE STATES SHE HAS WC BSC AND ALL OTHER EQUIPMENT SHE MAY NEED. SHE IS POD 1 AND NOT FEELING GOOD TODAY. AT TIME OF DC SHE SAID IF SHE NEEDS HH SHE WOULD LIKE [facility]. WE MAY NEED TO DISCUSS REHAB WITH HER WHEN SHE FEELS BETTER. SHE SAYS SHE LIVES AT HOME WITH HER . CM WILL FOLLOW AND ASSIST NEEDED. Service Specialist: Elke Whitney DCP- Discharge Planning Updated by [id number]: Elke Whitney on 03/12/20 1:[address] Patient Name: STEFANY RUBY Admission Status: Elective Accout number: [id number] Admission Date: 02-28-2020 : 1960 Admission Diagnosis:NONTRAUMATIC ISCHEMIC INFARCTION OF MUSCLE, UNSP LOWER Attending: CECILLE MCCALL Current LOS: 13 Anticipated DC Date: Planned Disposition: Primary Insurance: WELLCARE MEDICARE ADV Discharge Planning Comments: FAX SENT TO [facility] FOR WOUND VAC. Service Specialist: Elke Chelo DCP- Discharge Planning Updated by [id number]: Rosey Deanna on 03/03/20 4:[address] Patient Name: STEFANY RUBY Admission Status: Elective Accout number: [id number] Admission Date: 02-28-2020 : 1960 Admission Diagnosis:NONTRAUMATIC ISCHEMIC INFARCTION OF MUSCLE, UNSP LOWER Attending: CECILLE MCCALL Current LOS: 4 Anticipated DC Date: Planned Disposition: Primary Insurance: WELLCARE MEDICARE ADV Discharge Planning Comments: CM met with patient to complete initial dc planning assessment. CM educated patient on the CM role and verbal consent given by patient to complete assessment. Patient lives at home with family. Patient is independent. At discharge patient plans to return home and feels this is a safe discharge. CM discussed availability of home health, rehab services, and medical equipment. Patient states that she has all the DME that she needs. Patient will have family to transport home. Patient denied known discharge needs at this time. CM will continue to follow and will assist as needed with dc plans/needs. Service Specialist: Rosey Deanna DCPIA - Discharge Planning Initial Assessment Updated by [id number]: Rosey Starkeyr on 03/03/20 5:47 pm * Is the patient Alert and Oriented? Yes * How many steps to enter\exit or inside your home? 18 * PCP CAL * Pharmacy [facility] * Preadmission Environment Home with Family * ADLs Independent * Other Equipment WALKER, BSC, W/C, SC * List name and contact numbers for known caregivers / representatives who currently or will assist patient after discharge: DAFNE RUBY - [phone] * Verbal permission to speak to the caregivers and representatives has been obtained from the patient. Yes * Community resources currently utilized None * Additional services required to return to the preadmission environment? No * Can the patient safely return to the preadmission environment? Yes * Has this patient been hospitalized within the prior 30 days at any hospital? No Last DP export: 04/10/20 3:01 pm Patient Name: STEFANY RUBY Page [id number] at 1909 All edits/amendments must be made on the electronic document DICTATION DATE: 04/10/201908 DERRICK BOAT CAPTAIN: ELLA 04/10/201908 RPT#: [id number] DC DATE: STATUS: ADM IN [facility] [address] [place] [address] END OF REPORT
--- NOTE | 2020-04-10 20:18 | NUR ---
PT LYING IN BED WITH FAMILY AT BEDSIDE, PT INQUIRED ON DC HOME TO FAMILY AND IF AMBULANCE WILL BE ABLE TO TAKE HER HOME. ENCOURAGED PT AND TOLD HER THAT SHE WILL BE VERY WELL TAKEN CARE OF, NO NEEDS AT THIS TIME FROM FAMILY OR PT. CONTINUE WITH PLAN OF CARE
--- NOTE | 2020-04-10 21:40 | NUR ---
PT TO BE ADMITTED TO HOSPICE, FAXED ORDERS TO ER REGISTRATION
--- NOTE | 2020-04-11 13:09 | MORECARE ---
CASE MANAGEMENT DISCHARGE SUMMARY PATIENT: STEFANY RUBY I UNIT: [id number] ADM DATE: 02/28/20 AGE: 60 : 60 SEX: F ROOM/BED: D.2215 AUTHOR: JEAN CARLOS SMITH PHYSICIAN: REFERRING PHYSICIAN: CECILLE MCCALL MD DATE OF SERVICE: 04/11/20 Discharge Plan Patient Name: STEFANY RUBY Facility: [facility]:[place] : 1960 Planned Disposition: Anticipated Discharge Date: Discharge Date: 04/10/2020 Expected LOS: Initial Reviewer: [email or web address] Initial Review Date: 02/28/2020 Generated: 04/11/20 2:09 pm Comments DCP- Discharge Planning Updated by [id number]: Rosey Huerta on 04/10/20 6:[address] CM notified that post [facility] prognosis is poor and family had requested Hospice. CM contacted [facility] to [facility] for [facility] and faxed records. [facility] to come and evaluate patient this evening. CM will continue to follow and assist as needed with discharge planning / needs. DCP- Discharge Planning Updated by [email or web address]: Cydney Arias on 03/25/20 7:[address] Patient Name: STEFANY RUBY Encounter No: [id number] : 1960 Primary Insurance: WELLCARE MEDICARE ADV Anticipated DC Date: Planned Disposition: External Planned Provider: : 03/23/20 Late entry DCP follow-up note: Mamie at [phone] (pt daughter) called CM to discuss DC plan. Daughter states she wants her mother to go to rehab because she is not able to accommodate her needs. CM read through the notes and states the patient has refused to go, and CM can not force the patient into rehab. Mamie states she is unable to get the patient up the stairs into her home. CM spoke with of other alternatives such as HH, and long-term services. Pt daughter states she will peak with her other. CM states she will speak with her mother tomorrow about DC plan.Patient and family in agreement with discharge plan. No changes to plan. Case management will follow and assist as needed. 03/24/20 CM met with pt to discuss DC plan. Patient states she thought about IP rehab and is would like to go. EVANS signed for IP rehab at [facility]. Case management will follow and assist as needed. CM attempted o call Romelia at [phone] to DC pt choice for IP Rehab 03/25/20 CM called Romelia at [phone] and updated her on the DCP for IP rehab. Pt and daughter in agreement with DC plan. CM will continue to assist as needed. Cydney Arias DCP- Discharge Planning Updated by [email or web address]: Jacki Barajas on 03/13/20 3:[address] [facility] and in materials when patient is ready for discharged it will need to be brought up to the floor serial # [id number] Earnestine with materials will have it on her desk with a copy of the assignment form DCP- Discharge Planning Updated by [id number]: Elke Chelo on 03/12/20 6:[address] Patient Name: STEFANY RUBY Admission Status: Elective Accout number: [id number] Admission Date: 02-28-2020 : 1960 Admission Diagnosis:NONTRAUMATIC ISCHEMIC INFARCTION OF MUSCLE, UNSP LOWER Attending: CECILLE MCCALL Current LOS: 13 Anticipated DC Date: Planned Disposition: Primary Insurance: WELLCARE MEDICARE ADV Discharge Planning Comments: I SPOKE WITH PATIENT TODAY AND SHE STATES SHE HAS WC BSC AND ALL OTHER EQUIPMENT SHE MAY NEED. SHE IS POD 1 AND NOT FEELING GOOD TODAY. AT TIME OF DC SHE SAID IF SHE NEEDS HH SHE WOULD LIKE [facility]. WE MAY NEED TO DISCUSS REHAB WITH HER WHEN SHE FEELS BETTER. SHE SAYS SHE LIVES AT HOME WITH HER . CM WILL FOLLOW AND ASSIST NEEDED. Earth Sciences Professor: Elke Whitney DCP- Discharge Planning Updated by [id number]: Elke Whitney on 03/12/20 1:[address] Patient Name: STEFANY RUBY Admission Status: Elective Accout number: [id number] Admission Date: 02-28-2020 : 1960 Admission Diagnosis:NONTRAUMATIC ISCHEMIC INFARCTION OF MUSCLE, UNSP LOWER Attending: CECILLE MCCALL Current LOS: 13 Anticipated DC Date: Planned Disposition: Primary Insurance: WELLCARE MEDICARE ADV Discharge Planning Comments: [facility] Earth Sciences Professor: Elke Whitney DCP- Discharge Planning Updated by [id number]: Rosey Huerta on 03/03/20 4:[address] Patient Name: STEFANY RUBY Admission Status: Elective Accout number: [id number] Admission Date: 02-28-2020 : 1960 Admission Diagnosis:NONTRAUMATIC ISCHEMIC INFARCTION OF MUSCLE, UNSP LOWER Attending: CECILLE MCCALL Current LOS: 4 Anticipated DC Date: Planned Disposition: Primary Insurance: WELLCARE MEDICARE ADV Discharge Planning Comments: CM met with patient to complete initial dc planning assessment. CM educated patient on the CM role and verbal consent given by patient to complete assessment. Patient lives at home with family. Patient is independent. At discharge patient plans to return home and feels this is a safe discharge. CM discussed availability of home health, rehab services, and medical equipment. Patient states that she has all the DME that she needs. Patient will have family to transport home. Patient denied known discharge needs at this time. CM will continue to follow and will assist as needed with dc plans/needs. Earth Sciences Professor: Rosey Huerta DCPIA - Discharge Planning Initial Assessment Updated by [email or web address]: Rosey Huerta on 03/03/20 5:47 pm * Is the patient Alert and Oriented? Yes * How many steps to enter\exit or inside your home? 18 * PCP CAL * Pharmacy [facility] * Preadmission Environment Home with Family * ADLs Independent * Other Equipment WALKER, BSC, W/C, SC * List name and contact numbers for known caregivers / representatives who currently or will assist patient after discharge: DAFNE RUBY - [phone] * Verbal permission to speak to the caregivers and representatives has been obtained from the patient. Yes * Community resources currently utilized None * Additional services required to return to the preadmission environment? No * Can the patient safely return to the preadmission environment? Yes * Has this patient been hospitalized within the prior 30 days at any hospital? No Last DP export: 04/10/20 6:09 pm Patient Name: STEFANY RUBY Page 42448 at 1309 All edits/amendments must be made on the electronic document DICTATION DATE: 04/11/20 1309 PHYSICAL SECURITY SPECIALIST: ELLA 04/11/20 1309 RPT#: [id number] DC DATE:04/10/20 STATUS: DIS [facility] [address] [facility] [place] [address] END OF REPORT
--- NOTE | 2020-04-13 09:51 | OP ---
PATIENT NAME: STEFANY RUBY I MEDICAL RECORD: [id number] :[birth year] LOCATION:D.MS [id number] ADMISSION DATE:02/28/20 SURGEON: ABDI KEN MD DATE OF OPERATION: 04/10/2020 PROCEDURE: Left heart catheterization, selective coronary angiography, right femoral artery approach. CATHETERS: A 5-Wolof sheath, 5/4 left and right Lonnie, 5/4 pig. The procedure was well tolerated. The patient returned to ICU. Sheath removed. ExoSeal device was placed. FINDINGS: Left ventriculography shows severe global hypokinesis with reduced EF, estimated 20%. There is some moderate MR present as well. CORONARY ANATOMY: LEFT MAIN: Left main has luminal irregularities. LAD: Has luminal irregularities. CIRCUMFLEX: Circumflex has severe diffuse disease, not amenable to percutaneous intervention. RIGHT CORONARY ARTERY: The right coronary artery has severe diffuse disease, not amenable to percutaneous intervention. Severe ischemic cardiomyopathy. 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 IMPRESSION: I had a long discussion with the family, not a candidate for intervention or percutaneous or open surgery obviously. At this point in time, I thought about possibilities such as DNR hospice. He still wants aggressive measures at this point. Further depends upon clinical course. TRANSINT:[id number] Voice Confirmation ID: [id number] DOCUMENT ID: [id number] ABDI KEN MD at 0951 CC: [id number] DICTATION DATE: 04/10/20 1340 CRANE HELPER: 04/11/20 0217 DIS IN 04/10/20 [id number] [place] [address]
== END 2020-04-10 22:03 | disposition hospice, inpatient (51) | DRG 239 ==
LOC: D.CVICU 15:56 → D.ICU 15:56 → D.M2 15:56 → EDBD 15:56 → D.MS 15:56 → D.CVICU 02-29 19:53 → D.ICU 03-11 01:19 → D.MS 03-11 15:30 → D.ICU 03-17 11:55 → D.M2 03-21 17:09 → D.ICU 03-26 20:57 → D.M2 03-28 15:35 → D.MS 04-03 23:40 → D.ICU 04-08 11:30 → D.MS 04-10 18:00
PROVIDERS: Family Medicine; Family Medicine Adult Medicine; Internal Medicine Interventional Cardiology; Internal Medicine Pulmonary Disease; Orthopaedic Surgery; Surgery; ADMIT Family Medicine; ATTEND Family Medicine
PROC: 04UL0KZ Supplement Left Femoral Artery with Nonautologous Tissue Substitute, Open Approach (ICD-10-PCS; 2020-02-29)
PROC: 04CL0ZZ Extirpation of Matter from Left Femoral Artery, Open Approach (ICD-10-PCS; principal; 2020-02-29 18:17)
PROC: 0Y9D3ZZ Drainage of Left Upper Leg, Percutaneous Approach (ICD-10-PCS; 2020-03-02)
PROC: 05HY33Z Insertion of Infusion Device into Upper Vein, Percutaneous Approach (ICD-10-PCS; 2020-03-03)
PROC: 0Y6G0ZZ Detachment at Left Knee Region, Open Approach (ICD-10-PCS; 2020-03-11 13:45)
PROC: 04LL0ZZ Occlusion of Left Femoral Artery, Open Approach (ICD-10-PCS; 2020-03-17)
PROC: 2W1LX6Z Compression of Right Lower Extremity using Pressure Dressing (ICD-10-PCS; 2020-03-17)
PROC: 041L0KJ Bypass Left Femoral Artery to Left Femoral Artery with Nonautologous Tissue Substitute, Open Approach (ICD-10-PCS; 2020-03-26)
PROC: 0Y6D0Z2 Detachment at Left Upper Leg, Mid, Open Approach (ICD-10-PCS; 2020-04-02)
PROC: 0JBC0ZZ Excision of Pelvic Region Subcutaneous Tissue and Fascia, Open Approach (ICD-10-PCS; 2020-04-02)
PROC: B2111ZZ Fluoroscopy of Multiple Coronary Arteries using Low Osmolar Contrast (ICD-10-PCS; 2020-04-10)
PROC: B2151ZZ Fluoroscopy of Left Heart using Low Osmolar Contrast (ICD-10-PCS; 2020-04-10)
PROC: 4A023N7 Measurement of Cardiac Sampling and Pressure, Left Heart, Percutaneous Approach (ICD-10-PCS; 2020-04-10)
DX: E11.51 Type 2 diabetes mellitus with diabetic peripheral angiopathy without gangrene (principal); G93.41 Metabolic encephalopathy; A41.9 Sepsis, unspecified organism; R65.21 Severe sepsis with septic shock; N17.9 Acute kidney failure, unspecified; F05 Delirium due to known physiological condition; D62 Acute posthemorrhagic anemia; T81.31XA Disruption of external operation (surgical) wound, not elsewhere classified, initial encounter; E87.2 Acidosis; I70.222 Atherosclerosis of native arteries of extremities with rest pain, left leg; Z66 Do not resuscitate; M62.269 Nontraumatic ischemic infarction of muscle, unspecified lower leg; F41.8 Other specified anxiety disorders; K21.9 Gastro-esophageal reflux disease without esophagitis; I10 Essential (primary) hypertension; E78.5 Hyperlipidemia, unspecified; I25.10 Atherosclerotic heart disease of native coronary artery without angina pectoris; E11.319 Type 2 diabetes mellitus with unspecified diabetic retinopathy without macular edema; E11.65 Type 2 diabetes mellitus with hyperglycemia; M19.90 Unspecified osteoarthritis, unspecified site; D72.829 Elevated white blood cell count, unspecified

== ENCOUNTER 2020-04-10 23:04 | Inpatient (IN) | payer OTHER ==
[~2020-04-10] VITALS: Ht 175.3 cm; Wt 108.6 kg
[~2020-04-10 23:04] MED LIST: BASAGLAR K100 UNIT/1 SQ; CELEXA20 MG PO; COMBIVENT RESPIM4 GM INH; COZAAR100 MG PO; DEXILANT60 MG PO; ESTRACE1 MG PO; FLUTICASONE PRO16 GM NASAL; HYDROCHLOROTH12.5 M1 PO; HYDROCODON-ACE1 EA10 PO; METOPROLOL TART50 MG PO; NIACOR PO; NORVASC10 MG PO; PLAVIX75 MG PO; ZOCOR40 MG PO
--- NOTE | 2020-04-11 00:15 | NUR ---
PT REQUESTED PAIN MEDICATION, ADMINISTERED PRN PAIN MEDICATION AND THEN A LITTLE AFTERWARDS PT C/O NOT BEING ABLE TO BREATHE. PT O2 IS AT 79, ENCOURAGED PT TO BREATH SLOWLY THROUGH NOSE AND OUT MOUTH AND TO TRY AND CALM DOWN, PT DIAPHORETIC, ADMNISTERED PRN ATIVAN. FAMILY AT [facility], CONTINUE WITH PLAN OF CARE
--- NOTE | 2020-04-11 02:30 | NUR ---
PT BECAME VERY AGITATED RAPID BREATHING, VERY UNCOMFORTABLE, WANTING TO SIT UP, ADMINISTERED PRN PAIN MEDICATION AND PT CALMED DOWN FOR 30 MINUTES AND THEN BECAME AGITATED AGAIN HR AT 145 AND O2 DOWN TO 88. ENCOURAGED PT TO BREATHE SLOWLY, AND TRY TO CALM DOWN. PT CONTINUED T TRY AND SIT UP, ADMINISTERED PRN ANXIETY MEDICATION, CONTINUE WITH PLAN OF CARE
--- NOTE | 2020-04-11 02:51 | NUR ---
PT HR DOWN TO 113, PT IS RESTING, RESPIRATIONS STILL AT 22, O2 UP TO 94% FAMILY AT BEDSIDE CONTINUE WITH PLAN OF CARE
[2020-04-11 02:53] VITALS: Ht 175.3 cm; Wt 108.6 kg
--- NOTE | 2020-04-11 04:05 | NUR ---
PT ASLEEP STILL WITH DAUGHTER ASLEEP AT BEDSIDE, O2 AT 94% AND HR AT 114. NO S/SX OF DISTRESS, CONTINUE WITH PLAN OF CARE
--- NOTE | 2020-04-11 05:28 | NUR ---
PT IS STABLE AND RESTING COMFORTABLY, FAMILY WOULD LIKE TO HAVE PT DC HOME ON HOPSICE CARE AND STATED THAT SHE WANTS TO BE HOME WHEN SHE PASSES. TOLD PT FAMILY I WILL PAGE HOSPICE NURSE AND FIND OUT WHAT PROTOCOL IS FOR THIS. AWAITING CALL BACK
--- NOTE | 2020-04-11 08:16 | NUR ---
RESTING IN BED, NO DISTRESS NOTED, FAMILY IN ROOM SLEEPING, CONT TO MONITOR
[2020-04-11 13:58] VITALS: BP 156/100
--- NOTE | 2020-04-11 19:00 | NUR ---
BEDSIDE REPORT RECEIVED AND CARE OF PT ASSUMED. PT LYING IN LOW BRAR'S POSITION WITH EYES CLOSED. LEFT CVL PATENT WITH NS INFUSING AT KVO, AND FINE HAIRER WITH MORPHINE AT 0.5MG CONT. FOR PAIN CONTROL. FAMILY MEMBERS ARE AT BEDSIDE.
--- NOTE | 2020-04-11 19:35 | NUR ---
HOSPICE HERE THIS [facility] NEW ORDERS NOTED FOR EXTRUSION PRESS ADJUSTER
--- NOTE | 2020-04-11 19:53 | NUR ---
GAVE ATIVAN 1 MG IVP FOR AGGITATION, PER DAUGHTER'S REQUEST.
--- NOTE | 2020-04-11 20:49 | NUR ---
GAVE MORPHNE 2 MG IVP PER FAMILY REQUEST.
[2020-04-11 20:56] VITALS: BP 152/89
--- NOTE | 2020-04-11 22:18 | NUR ---
GAVE MORPHINE 2 MG PER DAUGHTER'S REQUEST.
--- NOTE | 2020-04-11 23:46 | NUR ---
GAVE ATIVAN 1 MG IVP PER DAUGHTER'S REQUEST FOR AGGITATION.
[2020-04-12 18:52] VITALS: BP 131/85
[2020-04-12 22:01] VITALS: BP 154/86
[2020-04-13 03:55] VITALS: BP 156/98
[2020-04-13 09:10] VITALS: BP 158/84
--- NOTE | 2020-04-13 11:04 | NUR ---
RESTING IN BED, DATABASE DEVELOPER INFUSING AT 1MG PER HR, FAMILY IN ROOM, CONT TO TURN AND POSITION, WOUND VAC TO L GROIN, DRESSINGS TO BOTH LOWER LEG STUMPS, CONT TO MONITOR VITALS
--- NOTE | 2020-04-13 20:00 | NUR ---
PT LYING IN BED RESTING, RESP 26, HR 116, O2 89%, UNABLE TO GET BP AFTER 3 ATTEMPTS. DAUGHTER AND AT BEDSIDE. LEFT SUBCLAVIAN INFUSING NS @ KVO, CONT MOPRHINE ROAD MENDER. O2 15L/HF. FAMILY DECIDES NEEDS AT THIS TIME. WILL CTM
--- NOTE | 2020-04-13 23:45 | NUR ---
RESP 28. DAUGHTER REQUESTED ATIVAN TO HELP PT RELAX. GAVE ORDERED. UPON REASSESSMENT RESP 22 AND SHALLOW. HR DOWN TO 104. WILL CTM
[2020-04-14 08:00] VITALS: BP 109/78
--- NOTE | 2020-04-14 08:30 | NUR ---
PT LAYING IN BED, EYES CLOSED, EVEN RESPIRATIONS. PT IS ON HOSPICE CARE. CVL IN LEFT SUBCLAV, PATENT, NO REDNESS OR SWELLING. O2 SAT 84%, VIA HFNC 15L. BILAT AKA. LEFT LEG, INCISION, DRSG D/I. WOUND VAC ON LEFT GROIN AREA FROM EDUARDO DRAIN REMOVAL. PRESSURE WOUND ON COCYXX, SIZE OF DIME, MEPIPLEX IN PLACE. LOCKHART IN PLACE, PATENT, MEGHAN COLORED URINE OUTPUT, STATLOCK IN PLACE. EDUCATED PT FAMILY ON CL AND NEEDS. BED LOW, RAILS X3. WILL CONTINUE TO MONITOR.
--- NOTE | 2020-04-14 10:30 | NUR ---
PT LAYING IN BED, EYES CLOSED, EVEN RESPIRATIONS. PERFORMED BED BATH WITH ASSISTANCE FROM DAUGHTER. EXAMINED DRSG ON ALL WOUNDS, EDUCATED DAUGHTER THAT WE WOULD BE DOING DRSG CHANGES SHORTLY, VERBALIZED UNDERSTANDING. BED LOW, CL IN REACH. WILL CONTINUR TO MONITOR.
--- NOTE | 2020-04-14 11:45 | NUR ---
PT LAYING IN BED, EVEN RESPIRATIONS. LEFT GROIN WOUND CHANGED, WOUND BEEFY RED, NO DRAINAGE, PT TOLERATED WELL. CHANGED DRSG ON LEFT LEG, PAUL INTACT, SMALL AMOUNT OF CLEAR DRAINAGE, APPLIED NEW ABD PAD AND 4X4, PT TOLERATED WELL. CHANGED DRSG ON COCYXX, CLEANED WITH SALINE SOLUTION, APPLIED NEW MEPIPLEX, OT TOLERATED WELL. BED LOW, CL IN REACH. WILL CONTINUE TO MONITOR.
[2020-04-14 13:31] VITALS: BP 172/104
--- NOTE | 2020-04-14 15:54 | NUR ---
PT LAYING IN BED, EYES CLOSED, EVEN RESPIRATIONS. PERFORMED ORAL CARE. PT DOES NOT APPEAR AGITATED, TOLERATED WELL. BED LOW, CL IN REACH. WILL CONTINUE TO MONITOR.
--- NOTE | 2020-04-14 19:30 | NUR ---
PT LYING IN BED RESTING QUIETLY, RESP EVEN, UNLABORED. LEFT SUBCLAVIAN INFUSING MORPHINE BURNING MACHINE OPERATOR 1MG/CONT. LOCKHART IN PLACE. ALL DRESSINGS CDI. DAUGHTER AND FOR BEDSIDE. ENCOURAGED TO CALL FOR NEEDS. CL IN REACH, WILL CTM
[2020-04-14 20:00] VITALS: BP 78/38
--- NOTE | 2020-04-14 23:00 | NUR ---
PT LYING IN BED RESTING QUIETLY, FAMILY AT BEDSIDE. WILL CTM
--- NOTE | 2020-04-15 02:00 | NUR ---
PT LYING IN BED RESTING QUIETLY, FAMILY ASLEEP AT BEDSIDE. WILL CTM
--- NOTE | 2020-04-15 04:22 | NUR ---
DAUGHTER CALLED REQUESTING ATIVAN. PT EYES OPEN, MOVING AROUND A LITTLE AND MOANING SLIGHTLY. GAVE ATIVAN REQUESTED. DENIES OTHER NEEDS AT THIS TIME. WILL CTM
--- NOTE | 2020-04-15 09:00 | NUR ---
ASSESSMENT PER FLOW SHEET. PATIENT IS WITHOUT SIGNS OF DISTRESS.FAMILY AT BEDSIDE.CALL LIGHT IN REACH
[2020-04-15 10:09] VITALS: BP 119/55
--- NOTE | 2020-04-15 12:30 | NUR ---
FAMILY AT BEDSIDE. PATIENT REMAINS SLEEPING WITHOUT DISRESS
--- NOTE | 2020-04-15 14:53 | NUR ---
FAMILY REMAINS AT BEDSIDE. PATIENT REMAINS WITHOUT CHANGE
[2020-04-15 20:00] VITALS: BP 104/59
--- NOTE | 2020-04-15 20:00 | NUR ---
PT LYING IN BED, WITHOUT DISTRESS. FAMILY AT BEDSIDE, DENIES NEEDS AT THIS TIME. WILL CTM
[2020-04-16 10:13] VITALS: BP 78/44
--- NOTE | 2020-04-16 13:42 | NUR ---
ASSESSMENT PER FLOW SHEET. ASSIST NIYA WITH WOUND CARE TO LEFT STUMP AND BUTTOCKS.STUMP INCISION APROXIMATED WITH PAUL.SKIN AROUND INCISION IS PEELING. BROWN DRAINAGE NOTED. EXCORIATION NOTED TO BUTTOCKS, 5 OPEN AREAS PIN SIZED,PEELING NOTED. DARKER AREA ON BUTTOCK TO LOWER BACK. PATIENT BECAME VERY ANXIOUS WITH RESP DISTRESS DURING DRESSING CHANGES. MEDS ORDERED PER NOV.
[2020-04-16 20:00] VITALS: BP 84/40
--- NOTE | 2020-04-17 09:00 | NUR ---
ASSESSMENT PER FLOW SHEET. PATIENT IS WITHOUT DISTRESS.FAMILY AT BEDSIDE.
--- NOTE | 2020-04-17 12:00 | NUR ---
HAS REMAINED WITHOUT CHANGE. CALL LIGHT USE INSTRUCTED WITH FAMILY.
[2020-04-17 13:02] VITALS: BP 148/76
--- NOTE | 2020-04-17 18:17 | NUR ---
REMAINS WITHOUT CHANGE. RESP 8-10MIN,SATS 97-99% ON 15 LITERS HIGHFLOW.
[2020-04-17 20:00] VITALS: BP 136/72
--- NOTE | 2020-04-18 02:12 | NUR ---
I have reviewed this patient and I concur with the Shift Assessment completed by the Licensed Practical Nurse today this shift.
[2020-04-18 14:09] VITALS: BP 115/60
[2020-04-18 21:00] VITALS: BP 70/35
--- NOTE | 2020-04-18 21:30 | NUR ---
PATIENT WITH TEMP 103.9 AX. RESP SHALLOW B/P 70/35. CALL PLACED TO [facility] WITH ORDERS RECEIVED. CALL PLACED TO [facility] TO UPDATE ON PATIENT.
--- NOTE | 2020-04-18 21:50 | NUR ---
IN ROOM NOTIFIED THIS NURSE PATIENT WAS NOT BREATHING. PATIENT NOTED WITH NO RESP AND UNABLE TO OBTAIN B/P. [facility] AND [facility] NOTIFIED. FAMILY AT BEDSIDE.
--- NOTE | 2020-04-18 23:04 | NUR ---
HOSPICE HERE TO PRONOUNCE. FAMILY REMAINS AT BEDSIDE.
--- NOTE | 2020-04-18 23:25 | NUR ---
[facility] NOTIFIED.[facility] NOTIFIED PER HOSPICE.
== END 2020-04-18 23:05 | DRG 951 ==
LOC: D.MS 23:04
PROVIDERS: ADMIT Legal Medicine; ATTEND Legal Medicine
DX: Z51.5 Encounter for palliative care (principal)